=== PATIENT | male | born 1950 | race Caucasian/White ===

== ENCOUNTER → 2017-10-11 15:27 | Outpatient (CLI) | payer MEDICARE, SELFPAY ==
[2017-10-11 16:12] LABS: Absolute Lymphocyte Count 1.81 X10^3/ul (0.83-4.51); Absolute Neutrophil Count 3.5 X10^3/uL (2.0-7.7); Basophil# 0.06 X10^3/uL; Basophil% 0.9 % (0-1); Differential Indicated SCAN CRITERIA MET; Eosinophil# 0.48 X10^3/uL; Eosinophils% 7.3 % (0-5); Hematocrit 44.2 % (40-54); Hemoglobin 15.6 g/dl (13.0-16.5); Lymphocyte # 1.81 X10^3/ul (4.0); Lymphocyte % 27.6 % (19-41); Mean Corp Hgb Conc 35.3 g/gl (32-36); Mean Corpuscular Hgb 30.8 pg (27.0-32.0); Mean Corpuscular Volume 87.2 fL (80-94); Mean Platelet Vol. 9.3 fl (6.2-12.0); Monocyte# 0.66 X10^3/uL; Monocyte% 10.1 % (0-10); Neutrophil # 3.49 X10^3/uL (2.7-7.7); Neutrophil % 53.3 % (47-70); POSITIVE COUNT NO; POSITIVE DIFFERENTIAL NO; POSITIVE MORPHOLOGY YES; Platelet Count 224 K/mm3 (150-450); RBC Distribution Width CV 12.8 % (11.6-14.6); Red Blood Count 5.07 M/mm3 (4.6-6.2); White Blood Count 6.6 K/mm3 (4.4-11.0)
[2017-10-11 16:15] LABS: AST(SGOT) 49 U/L (15-37); Alanine Aminotransfer ALT/SGPT 68 U/L (16-61); Albumin, Serum 3.9 g/dL (3.2-5.0); Alkaline Phosphatase 75 U/L (45-117); Anion Gap 7 (5-15); BUN 19 mg/dL (7-18); BUN/Creat Ratio 18.4 RATIO (10-20); Calcium,Total 9.3 mg/dL (8.5-10.1); Chloride 101 mmol/L (98-107); Creatinine, Serum 1.03 mg/dL (0.70-1.30); EST Glomerular Filtration Rate 77 mL/min (>60); Est Glom Filt Rate - Afr Amer 93 mL/min (>60); Globulin 3.9 g/dL (2.2-4.2); Glucose 111 mg/dL (74-106); Potassium 3.9 mmol/L (3.5-5.1); Protein, Total 7.8 g/dL (6.4-8.2); Sodium Level 137 mmol/L (136-145)
[2017-10-11 16:28] LABS: Differential Comment SCANNED
--- NOTE | 2017-10-11 17:35 | CT_ITS ---
STUDY: CT ABDOMEN AND PELVIS WITH CONTRAST REASON FOR EXAM: Male, 67 years old. Pain. Evaluate for diverticulitis. RADIATION DOSAGE (If Supplied By Facility): CTDIvol = ( 17.92 ) mGy, DLP = ( 1313.78 ) mGycm TECHNIQUE: Transaxial images were obtained from the dome of the diaphragm to the symphysis pubis with oral contrast. 100CC ml of Isovue 300 contrast was administered. Sagittal and coronal images were reconstructed. Individualized dose optimization techniques were used for this CT. COMPARISON: 09/14/2016 FINDINGS: The visualized lung bases are clear. The visualized portions of the heart and pericardium are within normal limits. There are no calcified gallstones present. The liver is low in density, consistent with fatty infiltration. The spleen is normal in size. The pancreas is within normal limits. The adrenal glands are within normal limits. There are no obstructing renal stones. There is no hydronephrosis. There are no focal renal lesions. Normal visualized stomach. There is no bowel obstruction or inflammation. There are colonic diverticula without evidence of diverticulitis. The appendix is visualized and appears normal. The aorta is normal in caliber. There is no abdominal or pelvic free air, free fluid, fluid collection or lymphadenopathy. There are no destructive osseous lesions. CT/Abdomen/Pelvis WITH Contrast IMPRESSION: No acute abdominal or pelvic pathology. Fatty liver. Electronically Signed: Harrison Beal, at 18:25 EDT Tel , Service support ,
== END ==
PROVIDERS: Family Provider Family Medicine; PCP Family Medicine; Visit Provider Family Medicine
DX: K57.92 Diverticulitis of intestine, part unspecified, without perforation or abscess without bleeding (principal)
CPT/HCPCS: 36415; 74177; 80053; 85025; Q9967

== ENCOUNTER 2017-10-11 18:35 | Emergency (ER) | payer MEDICARE, SELFPAY ==
[2017-10-11 18:36] VITALS: BP 152/96; PULSE 101; RESP 16; TEMP 37.3; O2SAT 94; BMI 31.6
[2017-10-11] MEDS: DiphenhydrAMINE 50 MG/ML Syringe 25 MG IV (18:54)
[2017-10-11] MEDS: MethylPREDNISolone 125 MG/2 ML Vial IV (18:55)
[2017-10-11] MEDS: Ondansetron 4 MG/2 ML Vial IV (19:33)
--- NOTE | 2017-10-11 20:12 | ED.VISSUMM ---
- ER Visit Summary Date of Service: 10/11/17 Chief Complaint: IV dye reaction History of Present Illness: The patient is a 67 M who had an outpatient CT of the abdomen and pelvis with oral and IV contrast today. He has been having some lower abdominal pain and diarrhea. Roughly 15 minutes after administration of the IV dye he developed hives cough and felt like his lips were swelling and that his throat was tight. He has had IV dye previously but never had a reaction like this. No fevers. No vomiting. Physical Examination: Afebrile vitals are stable Patient in no distress Moist mucous membranes Airway patent I do not appreciate any angioedema no lip or tongue swelling Patient does have a few small areas of urticaria Heart regular rate and rhythm Lungs are clear no wheezing no stridor Test Results: Patient was treated with IV Solu-Medrol Pepcid and Benadryl while here. Emergency Department Course and Treatment: He has been observed for about 90 minutes. On reevaluation his rash is nearly resolved and he is otherwise asymptomatic. I do believe he can safely be discharged. He understands return for new worsening or recurrent symptoms. All questions answered at bedside. Patient discharged. Treatment Plan: [] Disposition: Discharge Impression: IV dye allergic reaction This note was generated with [employer] dictation software. It may contain incorrect words, spelling, and punctuation that were not noted in review of the chart prior to signing ED Disposition - Plan for ED Patient: Chief Complaint: Allergic Reaction Referrals: Bryon Garg MD [Primary Care Provider] -
--- NOTE | 2017-10-11 20:14 | ED.DEP ---
ED Disposition - Plan for ED Patient: Chief Complaint: Allergic Reaction Instructions: ED Allergic Reaction General Other Referrals: Bryon Garg MD [Primary Care Provider] -
[2017-10-11 20:26] VITALS: BP 127/91; PULSE 87; RESP 16; O2SAT 96
== END 2017-10-11 20:29 | disposition home or self-care (01) ==
LOC: ED 19:48
PROVIDERS: Emergency Provider Emergency Medicine; Family Provider Family Medicine; PCP Family Medicine
DX: T78.40XA Allergy, unspecified, initial encounter (principal); T50.8X5A Adverse effect of diagnostic agents, initial encounter; Y92.9 Unspecified place or not applicable; R10.30 Lower abdominal pain, unspecified; R19.7 Diarrhea, unspecified; R06.00 Dyspnea, unspecified; I10 Essential (primary) hypertension; E78.00 Pure hypercholesterolemia, unspecified; M79.7 Fibromyalgia; M10.9 Gout, unspecified
CPT/HCPCS: 36415; 74177; 80053; 85025; 96365; 96375; 99284; Q9967; A4216; J2405; J3490

== ENCOUNTER → 2017-11-01 13:03 | Outpatient (CLI) | payer MEDICARE, SELFPAY ==
[2017-11-01 14:13] LABS: Absolute Lymphocyte Count 1.43 X10^3/ul (0.83-4.51); Absolute Neutrophil Count 3.1 X10^3/uL (2.0-7.7); Basophil# 0.03 X10^3/uL; Basophil% 0.6 % (0-1); Eosinophil# 0.35 X10^3/uL; Eosinophils% 6.5 % (0-5); Hematocrit 43.2 % (40-54); Hemoglobin 15.2 g/dl (13.0-16.5); Lymphocyte # 1.43 X10^3/ul (4.0); Lymphocyte % 26.7 % (19-41); Mean Corp Hgb Conc 35.2 g/gl (32-36); Mean Corpuscular Volume 88.2 fL (80-94); Mean Platelet Vol. 9.3 fl (6.2-12.0); Monocyte# 0.47 X10^3/uL; Monocyte% 8.8 % (0-10); Neutrophil # 3.05 X10^3/uL (2.7-7.7); Platelet Count 226 K/mm3 (150-450); RBC Distribution Width CV 12.9 % (11.6-14.6); RBC Distribution Width SD 41.1 fl (35.1-43.9); White Blood Count 5.4 K/mm3 (4.4-11.0)
[2017-11-01 14:14] LABS: POSITIVE COUNT NO; POSITIVE DIFFERENTIAL NO; POSITIVE MORPHOLOGY NO
[2017-11-01 14:32] LABS: ALB/GLOB Ratio 1.1 RATIO (0.9-2.4); AST(SGOT) 94 U/L (15-37); Alanine Aminotransfer ALT/SGPT 112 U/L (16-61); Albumin, Serum 4.1 g/dL (3.2-5.0); Alkaline Phosphatase 71 U/L (45-117); Anion Gap 9 (5-15); BUN 17 mg/dL (7-18); CRP 4.69 mg/L (0.0-3.0); Chloride 101 mmol/L (98-107); Creatinine, Serum 1.13 mg/dL (0.70-1.30); EST Glomerular Filtration Rate 69 mL/min (>60); Est Glom Filt Rate - Afr Amer 83 mL/min (>60); Globulin 3.6 g/dL (2.2-4.2); Glucose 116 mg/dL (74-106); Potassium 4.1 mmol/L (3.5-5.1); Protein, Total 7.7 g/dL (6.4-8.2); Sodium Level 139 mmol/L (136-145)
== END ==
PROVIDERS: Family Provider Family Medicine; PCP Family Medicine; Visit Provider Family Medicine
DX: R07.89 Other chest pain (principal); R10.814 Left lower quadrant abdominal tenderness
CPT/HCPCS: 36415; 80053; 84484; 85025; 86140

== ENCOUNTER → 2017-11-07 11:00 | Outpatient (CLI) | payer MEDICARE, SELFPAY ==
--- NOTE | 2017-11-07 11:08 | RAD_ITS ---
STUDY: X-RAY - ABDOMEN/PELVIS REASON FOR EXAM: Male, 67 years old. Left lower quadrant abdominal tenderness TECHNIQUE: AP supine and upright views of the abdomen and pelvis. COMPARISON: CT abdomen pelvis 10/11/2017 FINDINGS: Normal visualized lung bases. Ovoid density superior to the right kidney possible medication within the gastric antrum. No abnormal calcification detected on CT. There is an unremarkable bowel gas pattern. There is no demonstrated free abdominal air. Hepatomegaly. Elevation right hemidiaphragm is stable. Stable right pelvic phlebolith. Normal visualized osseous structures. RAD/Abd Inc Decub and/or Erect IMPRESSION: There is no obstruction or perforation. Ovoid density right upper may represent dense medication. No abnormal calcification detected on CT. Stable hepatomegaly and elevation of the right hemidiaphragm. Electronically Signed: Jeannie Girard MD at 7:32 EDT , Service support ,
[2017-11-07 12:12] LABS: Absolute Lymphocyte Count 1.52 X10^3/ul (0.83-4.51); Absolute Neutrophil Count 3.5 X10^3/uL (2.0-7.7); Basophil# 0.01 X10^3/uL; Basophil% 0.2 % (0-1); Eosinophil# 0.34 X10^3/uL; Eosinophils% 5.8 % (0-5); Hematocrit 42.7 % (40-54); Hemoglobin 15.1 g/dl (13.0-16.5); Lymphocyte # 1.52 X10^3/ul (4.0); Lymphocyte % 26.1 % (19-41); Mean Corp Hgb Conc 35.4 g/gl (32-36); Mean Corpuscular Hgb 30.8 pg (27.0-32.0); Mean Corpuscular Volume 87.1 fL (80-94); Mean Platelet Vol. 9.1 fl (6.2-12.0); Monocyte# 0.46 X10^3/uL; Monocyte% 7.9 % (0-10); Neutrophil # 3.48 X10^3/uL (2.7-7.7); Neutrophil % 59.8 % (47-70); Platelet Count 201 K/mm3 (150-450); RBC Distribution Width CV 12.8 % (11.6-14.6); White Blood Count 5.8 K/mm3 (4.4-11.0)
[2017-11-07 12:16] LABS: POSITIVE COUNT NO; POSITIVE DIFFERENTIAL NO; POSITIVE MORPHOLOGY NO
[2017-11-07 12:40] LABS: ALB/GLOB Ratio 1.1 RATIO (0.9-2.4); AST(SGOT) 53 U/L (15-37); Alanine Aminotransfer ALT/SGPT 77 U/L (16-61); Albumin, Serum 3.9 g/dL (3.2-5.0); Alkaline Phosphatase 77 U/L (45-117); Anion Gap 10 (5-15); BUN 19 mg/dL (7-18); BUN/Creat Ratio 17.4 RATIO (10-20); CRP 4.87 mg/L (0.0-3.0); Chloride 101 mmol/L (98-107); Creatinine, Serum 1.09 mg/dL (0.70-1.30); EST Glomerular Filtration Rate 72 mL/min (>60); Est Glom Filt Rate - Afr Amer 87 mL/min (>60); Globulin 3.5 g/dL (2.2-4.2); Glucose 154 mg/dL (74-106); Lipase 155 U/L (73-393); Potassium 3.8 mmol/L (3.5-5.1); Protein, Total 7.4 g/dL (6.4-8.2); Sodium Level 138 mmol/L (136-145)
[2017-11-08 08:45] LABS: Hep C Antibodies <0.1 s/co ratio (0.0-0.9)
== END ==
PROVIDERS: Family Provider Family Medicine; PCP Family Medicine; Visit Provider Family Medicine
DX: R10.814 Left lower quadrant abdominal tenderness (principal)
CPT/HCPCS: 36415; 74019; 80053; 83690; 85025; 86140; 86803

== ENCOUNTER → 2017-11-12 09:32 | Outpatient (CLI) | payer MEDICARE, SELFPAY ==
--- NOTE | 2017-11-12 09:38 | US_ITS ---
STUDY: RENAL ULTRASOUND - COMPLETE REASON FOR EXAM: Male, 67 years old. Abnormal x-ray. TECHNIQUE: Ultrasound evaluation of the kidneys was performed with real-time and static alba-scale imaging. COMPARISON: Radiographs 11/07/2017, CT scan 10/11/2017 which was negative and is more sensitive than radiographs or ultrasound.. FINDINGS: RIGHT KIDNEY: Normal location of the right kidney, which is normal in size. The right kidney measures 11.4 x 6.1 x 5.0 cm. There is a normal cortex of the right kidney. The renal cortex measures 1.8 cm. There is no right renal mass or cyst. There are no right renal calculi. There is no right hydronephrosis. DISTAL RIGHT URETER: There is non-visualization of the distal right ureter. There is no demonstrated right ureterovesical junction calculus. There is a visualized right ureteral jet. LEFT KIDNEY: Normal location of the left kidney, which is normal in size. The left kidney measures 11.8 x 5.5 x 6.6 cm. There is a normal cortex of the left kidney. The renal cortex measures 1.8 cm. There is no left renal mass or cyst. There are no left renal calculi. There is no left hydronephrosis. DISTAL LEFT URETER: There is non-visualization of the distal left ureter. There is no demonstrated left ureterovesical junction calculus. There is a visualized left ureteral jet. BLADDER: The distended urinary bladder has a volume of 283 ml. There is a normal wall thickness of the distended urinary bladder. There is no demonstrated mass within the urinary bladder. There are no demonstrated bladder calculi. US/Kidney and Bladder IMPRESSION: Normal ultrasound of the kidneys and urinary bladder. Electronically Signed: Chandu Roth MD at 16:18 EDT , Service support ,
== END ==
PROVIDERS: Family Provider Family Medicine; PCP Family Medicine; Visit Provider Family Medicine
DX: R93.8 Abnormal findings on diagnostic imaging of other specified body structures (principal)
CPT/HCPCS: 76770

== ENCOUNTER 2017-11-27 06:22 | Day surgery (SDC) | payer MEDICARE, SELFPAY ==
--- NOTE | 2017-11-27 | IMM_PTH ---
PATIENT: FELIPE EVERETT LOC: EN U#:[id number] AGE/SX: 67/M ROOM: RE11/27/[address]: Dr. Richi Marie MD : 1950 BED: DIS: 11/27/2017 SPEC #: [id number] RECD: 11/28/17 10:30 STATUS: ANUSHKA DEIRDRE #: [id number] WILLIAMS: 11/27/17 00:[address]: Richi Marie DEPT: IMMUNOHISTOCHEMISTRY RECD BY: Jackie Lebron ENTERED: 11/28/17 10:31 SP TYPE: IMMUNO OTHR DR: Dr. Bryon Garg MD Tissues: A - Stomach, NOS B - Stomach, NOS Procedures: H Pylori (initial) PHYSICIAN & [place] [id number] SPECIMEN INFORMATION: Tissue Source: A ? Antral biopsy, B ? Proximal stomach biopsy Clinical Info: LUQ pain Specimen Number: [id number] A & B CPT code: 84351 x2 METHODOLOGY: Deparaffinized sections of prefer/formalin-fixed tissue or PAP/DQ stained slides are incubated with monoclonal/polyclonal antibodies/oligonucleotide probes. Localization is made via biotin free immunoperoxidase method. Appropriate controls are performed and reacted as expected. Results on target cell population are indicated in the following table: RESULTS: ANTIBODY / CLONE RESULT Block A H Pylori (polyclonal) negative Block B H Pylori (polyclonal) negative These tests were developed and their performance characteristics determined by [facility]. They may not have been cleared or approved by the U.S. Food and Drug Administration. The FDA has determined that such clearance or approval is not necessary. INTERPRETATION: A. Antral biopsy: Negative for Helicobacter pylori organisms. B. Proximal stomach biopsy: Negative for Helicobacter pylori organisms. SJ:tremaine 11/28/17
--- NOTE | 2017-11-27 | EGD_PTH ---
PATIENT: FELIPE EVERETT LOC: EN U#:[id number] AGE/SX: 67/M ROOM: RE11/27/[address]: Dr. Richi Marie MD : 1950 BED: DIS: 11/27/2017 SPEC #: [id number] RECD: 11/27/17 11:54 STATUS: ANUSHKA DEIRDRE #: [id number] WILLIAMS: 11/27/17 00:[address]: Richi Marie DEPT: SURGICAL PATHOLOGY RECD BY: Sam Dacosta ENTERED: 11/27/17 12:58 SP TYPE: EGD BIOPSY OTHR DR: Dr. Bryon Garg MD Tissues: A - Gastric mucous membrane B - Gastric mucous membrane Procedures: Surgery Specimen Level IV HEADER OPERATION: EGD PRE-OP DIAGNOSIS: LUQ pain TISSUE SUBMITTED: A ? Antral biopsy for histo and H. pylori, B ? Proximal stomach biopsy MICROSCOPIC DIAGNOSIS A. Antral biopsy: Mild gastritis. B. Proximal stomach biopsy: Mild gastritis and focal mucosal hemorrhage. SJ:tremaine 11/28/17 COMMENT A & B. The results of immunohistochemistry for Helicobacter pylori will be reported separately ([id number]). MICROSCOPIC DESCRIPTION Slides are reviewed. A. The specimen shows fragments of gastric mucosa with chronic inflammatory cell infiltrates in the lamina propria consisting of lymphocytes and plasma cells, consistent with mild chronic gastritis. B. The specimen shows fragments of gastric mucosa with chronic inflammatory cell infiltrates in the lamina propria consisting of lymphocytes and plasma cells, consistent with mild chronic gastritis. Focal mucosal hemorrhage is also noted. GROSS DESCRIPTION A - Received in fixative is one container labeled with the patient's name and designated antral biopsy. The specimen consists of multiple irregular fragments of light hector soft tissue that in aggregate measure 0.4 x 0.2 x 0.1 cm. The specimen is totally submitted in one cassette. B - Received in fixative is one container labeled with the patient's name and designated proximal stomach biopsy. The specimen consists of multiple irregular fragments of light hector soft tissue that in aggregate measure 0.5 x 0.3 x 0.1 cm. The specimen is totally submitted in one cassette. / JIMMY:tremaine 11/27/17 TC:3 CPT: 85189 x2
[2017-11-27 07:05] VITALS: BP 127/80; PULSE 69; RESP 18; TEMP 36.8; O2SAT 97; BMI 31.0
[2017-11-27 08:13] VITALS: BP 118/71; BP 127/80; PULSE 68; RESP 16; TEMP 37.4; O2SAT 94
[2017-11-27 08:20] VITALS: BP 117/68; BP 127/80; PULSE 62; RESP 16; O2SAT 95
--- NOTE | 2017-11-27 08:21 | OP.PCM_ITS ---
Problem List (1) LUQ abdominal pain Status: Acute Report of Operation Date of Procedure: 11/27/17 Pre-Operative Diagnosis: Left upper quadrant pain Post-Operative Diagnosis: Gastritis Surgery/Procedure Performed:: EGD with biopsy Specimen's removed: 1. Antral biopsy. 2. Proximal stomach biopsy Description of Procedure: The major risks and benefits associated with the procedure were explained to the patient in detail. The patient verbalized understanding and agreement with the same. The patient was then placed in the left lateral decubitus position. IV sedation was started by anesthesia. The endoscope was then advanced under direct visualization over the tongue, into the esophagus , stomach and duodenum. It was slowly withdrawn and the mucosa was carefully evaluated. Duodenal mucosal abnormalities were not visualized. Antegrade and retrograde views of the stomach were normal and did not reveal a hiatal hernia or ulceration. Gastric folds were normal. A biopsy of the antrum was performed with cold forceps. The patient had a small area of gastritis in the proximal stomach which was also biopsied with cold forceps. The scope was then withdrawn through the GE junction and careful examination did not demonstrate any mucosal abnormalities. No evidence of Olivas's esophagus was apparent. Careful examination of the remainder of the esophagus was normal. The scope was then withdrawn from the patient and the procedure terminated. It was well tolerated and there were no immediate complications. I recommended the patient continue to take his PPI first thing in the morning and see me in 1 month to see if that makes any difference. At this time he just had minor gastritis and I am checking for H. pylori. There were no ulcers or malignancies noted. GE junction was normal.
[2017-11-27 08:25] VITALS: BP 113/76; BP 127/80; PULSE 60; RESP 16; O2SAT 95
[2017-11-27 08:32] VITALS: BP 124/74; BP 127/80; PULSE 60; RESP 16; TEMP 36.6; O2SAT 94
[2017-11-27 09:13] VITALS: BP 127/80
== END 2017-11-27 09:14 | disposition home or self-care (01) ==
LOC: EN 06:23 → AC 06:51
PROVIDERS: Family Provider Family Medicine; PCP Family Medicine; Visit Provider Surgery
PROC: 0DJ08ZZ Inspection of Upper Intestinal Tract, Via Natural or Artificial Opening Endoscopic (ICD-10-PCS; CPT 43235; principal; 2017-11-27 07:55)
DX: K29.70 Gastritis, unspecified, without bleeding (principal); R10.12 Left upper quadrant pain; M79.7 Fibromyalgia; I10 Essential (primary) hypertension; E78.5 Hyperlipidemia, unspecified; N40.0 Benign prostatic hyperplasia without lower urinary tract symptoms; K21.9 Gastro-esophageal reflux disease without esophagitis; Z87.891 Personal history of nicotine dependence; Z79.82 Long term (current) use of aspirin; Z85.828 Personal history of other malignant neoplasm of skin
CPT/HCPCS: 43239; 88305; 88342; J7120

== ENCOUNTER → 2018-04-01 15:41 | Outpatient (CLI) | payer MEDICARE, SELFPAY ==
--- NOTE | 2018-04-01 15:47 | RAD_ITS ---
STUDY: X-RAY - LUMBAR SPINE REASON FOR EXAM: Male, 67 years old. Back pain TECHNIQUE: 3 view(s) of the lumbar spine were obtained. COMPARISON: None FINDINGS: Normal lumbar lordosis. There is no substantial scoliosis. There is a normal alignment of the vertebrae. Normal vertebral bodies and endplates. There is multi-level degenerative disc disease with multi-level disc space narrowing. There is no demonstrated fracture. The soft tissue structures are unremarkable. RAD/Lumbar Spine 2 or 3 Views IMPRESSION: Degenerative changes of the spine, as detailed above. There is NO acute fracture or malalignment. Electronically Signed: Raimundo Luke MD at 5:20 EDT , Service support ,
== END ==
PROVIDERS: Family Provider Family Medicine; PCP Family Medicine; Visit Provider Anesthesiology Pain Medicine
DX: M54.9 Dorsalgia, unspecified (principal)
CPT/HCPCS: 72100

== ENCOUNTER → 2018-04-15 12:32 | Outpatient (CLI) | payer MEDICARE, SELFPAY ==
[2018-04-15 14:03] LABS: Absolute Lymphocyte Count 1.41 X10^3/ul (0.83-4.51); Basophil# 0.03 X10^3/uL; Basophil% 0.5 % (0-1); Eosinophil# 0.29 X10^3/uL; Eosinophils% 4.6 % (0-5); Hematocrit 43.2 % (40-54); Hemoglobin 15.4 g/dl (13.0-16.5); Lymphocyte # 1.41 X10^3/ul (4.0); Lymphocyte % 22.6 % (19-41); Mean Corp Hgb Conc 35.6 g/gl (32-36); Mean Corpuscular Hgb 31.6 pg (27.0-32.0); Mean Corpuscular Volume 88.7 fL (80-94); Mean Platelet Vol. 9.3 fl (6.2-12.0); Monocyte# 0.54 X10^3/uL; Monocyte% 8.7 % (0-10); Neutrophil # 3.96 X10^3/uL (2.7-7.7); Neutrophil % 63.4 % (47-70); Platelet Count 187 K/mm3 (150-450); RBC Distribution Width CV 12.7 % (11.6-14.6); RBC Distribution Width SD 40.6 fl (35.1-43.9); Red Blood Count 4.87 M/mm3 (4.6-6.2); White Blood Count 6.2 K/mm3 (4.4-11.0)
[2018-04-15 14:04] LABS: POSITIVE COUNT NO; POSITIVE DIFFERENTIAL NO; POSITIVE MORPHOLOGY NO
[2018-04-15 14:18] LABS: AST(SGOT) 32 U/L (15-37); Alanine Aminotransfer ALT/SGPT 53 U/L (16-61); Albumin, Serum 3.9 g/dL (3.2-5.0); Alkaline Phosphatase 70 U/L (45-117); Anion Gap 8 (5-15); BUN 21 mg/dL (7-18); BUN/Creat Ratio 22.7 RATIO (10-20); Chloride 102 mmol/L (98-107); Creatinine, Serum 0.92 mg/dL (0.70-1.30); EST Glomerular Filtration Rate 87 mL/min (>60); Est Glom Filt Rate - Afr Amer 105 mL/min (>60); Glucose 139 mg/dL (74-106); Potassium 4.2 mmol/L (3.5-5.1); Protein, Total 7.9 g/dL (6.4-8.2); Sodium Level 138 mmol/L (136-145); Thyroid Stim Hormone (TSH) 0.57 uIU/mL (0.358-3.74)
== END ==
PROVIDERS: Family Provider Family Medicine; PCP Family Medicine; Visit Provider Family Medicine
DX: G25.0 Essential tremor (principal); J02.9 Acute pharyngitis, unspecified
CPT/HCPCS: 36415; 80053; 84443; 85025

== ENCOUNTER → 2018-05-14 15:15 | Outpatient (CLI) | payer MEDICARE, SELFPAY ==
--- NOTE | 2018-05-14 16:00 | MRI_ITS ---
STUDY: MRI LUMBAR SPINE WITHOUT CONTRAST REASON FOR EXAM: Male, 68 years old. Back and right leg pain. TECHNIQUE: Standardized fat and water weighted pulse sequences were obtained in the sagittal and axial planes. COMPARISON: None FINDINGS: T12-L1: Normal endplates. Normal disc height, hydration and morphology. Normal bilateral facet joints. Normal central canal and bilateral lateral recesses. Normal bilateral intervertebral neural foramina. Normal lumbar lordosis. There is no substantial scoliosis. Normal conus medullaris that terminates at the T12-L1. L1-2: Normal endplates. Disc dehydration. Mild, noncompressive spondylotic bar. Normal bilateral facet joints. Normal central canal and bilateral lateral recesses. Normal bilateral intervertebral neural foramina. L2-3: Normal endplates. Disc dehydration and mild disc space narrowing. There is 3 mm degenerative retrolisthesis. Normal bilateral facet joints. Normal central canal and bilateral lateral recesses. Normal bilateral intervertebral neural foramina. L3-4: Edematous endplate changes. Disc dehydration and moderate disc space narrowing. There is a small central and right paramedian disc protrusion causing mild effacement of the ventral thecal sac. There is no canal stenosis. Normal bilateral facet joints. Normal bilateral lateral recesses. There is moderate foraminal encroachment bilaterally, greater on the right, due to spurring and facet hypertrophy. L4-5: Normal endplates. Disc dehydration. Moderate facet hypertrophy. Normal central canal and bilateral lateral recesses. Moderate foraminal encroachment predominantly due to facet hypertrophy. The patient is status post left hemilaminectomy. L5-S1: Normal endplates. Disc dehydration and mild disc space narrowing. Normal bilateral facet joints. Normal central canal and bilateral lateral recesses. Mild to moderate foraminal encroachment, greater on the left, due to spurring and facet hypertrophy. Normal visualized sacral ala. Normal visualized paraspinous soft tissue structures. MRI/Spine Lumbar (Routine) IMPRESSION: 1. L3-4 right disc protrusion. 2. L2-3 retrolisthesis. 3. Foraminal encroachment at L3-4, L4-5, and L5-S1. 4. Additional degenerative changes are detailed above. Electronically Signed: Cat Cox MD at 23:25 EDT Tel , Service support ,
== END ==
PROVIDERS: Family Provider Family Medicine; PCP Family Medicine; Referring Provider Anesthesiology Pain Medicine; Visit Provider Anesthesiology Pain Medicine
DX: M54.9 Dorsalgia, unspecified (principal); M79.606 Pain in leg, unspecified
CPT/HCPCS: 72148

== ENCOUNTER → 2018-07-26 12:05 | Outpatient (CLI) | payer MEDICARE, SELFPAY ==
[2018-07-26 16:06] LABS: Hemoglobin A1c 7.9 % (4.2-6.3)
[2018-07-26 16:25] LABS: Rheumatoid Factor < 10.0 IU/mL (<15); Thyroid Stim Hormone (TSH) 0.64 uIU/mL (0.358-3.74)
[2018-07-26 16:43] LABS: Vitamin B12 1185 pg/mL (211-911); Vitamin D,25 Hydroxy 17.3 ng/mL (29.95-100.01)
[2018-07-29 16:06] LABS: SJOGREN'S Anti-SS-A test < 0.2 AI (0.0-0.9); SJOGREN'S Anti-SS-B test < 0.2 AI (0.0-0.9)
[2018-07-29 16:44] LABS: ANTINUCLEAR ANTIBODIES DIRECT Negative (Negative)
[2018-07-30 14:05] LABS: Albumin 3.9 g/dL (2.9-4.4); Albumin, Ur 50.8 % (.); Alpha-1-Globulin, Ur 2.3 % (.); Alpha-1-Globulins 0.3 g/dL (0.0-0.4); Alpha-2-Globulins 0.8 g/dL (0.4-1.0); Alpha-2-Globulins, Ur 14.6 % (.); Beta Globulin, Ur 20.2 % (.); Ceruloplasmin 29.5 mg/dL (16.0-31.0); Cytoplasmic Ab (C-ANCA) <1:20 titer (Neg:<1:20); Gamma Globulin, Ur 12.1 % (.); Immunoglobulin A 426 mg/dL (61-437); Immunoglobulin G 876 mg/dL (700-1600); Immunoglobulin M 41 mg/dL (20-172); M-Spike, Ur % Not Observed % (Not Observed); PROEL- TOTAL PROTEIN 7.4 g/dL (6.0-8.5); Total Protein, Ur 74.1 mg/dL (Not Estab.)
[2018-07-30 14:44] LABS: Copper, Serum or Plasma 116 ug/dL (72-166); Perinuclear Ab (P-ANCA) <1:20 titer (Neg:<1:20)
== END ==
PROVIDERS: Family Provider Family Medicine; PCP Family Medicine; Referring Provider Psychiatry & Neurology Neurology; Visit Provider Psychiatry & Neurology Neurology
DX: E11.9 Type 2 diabetes mellitus without complications (principal); G62.9 Polyneuropathy, unspecified; R25.1 Tremor, unspecified
CPT/HCPCS: 36415; 82306; 82390; 82525; 82607; 82784; 83036; 84165; 84166; 84443; 86038; 86235; 86256; 86334; 86335; 86431

== ENCOUNTER → 2018-08-07 09:16 | Outpatient (CLI) | payer MEDICARE, SELFPAY ==
--- NOTE | 2018-08-07 09:20 | CDU_ITS ---
Reason For Study: dizziness, stenosis Rt. Velocities/BP Lt. Velocities/BP Prox CCA 140/23 cm/sec. Prox CCA 142/25 cm/sec. Mid CCA 136/29 cm/sec. Mid CCA 130/31 cm/sec. Dist CCA 75/14 cm/sec. Dist CCA 114/28 cm/sec. Prox ICA 57/23 cm/sec. Prox ICA 93/18 cm/sec. Mid ICA 93/32 cm/sec. Mid ICA 66/26 cm/sec. Dist ICA 81/33 cm/sec. Dist ICA 41/15 cm/sec. Rt. ICA/CCA = .7. Lt. ICA/CCA = .7. Prox ECA 91/14 cm/sec. Prox ECA 80/17 cm/sec. Rt. Vert. 23/7 cm/sec. Lt. Vert. 52/18 cm/sec. Right Extracranial There is intimal thickening but no significant atherosclerotic plaque noted in the right common carotid artery. There is heterogeneous, smooth atherosclerotic plaque noted in the right internal carotid artery. There is no significant atherosclerotic plaque noted in the right external carotid artery. Antegrade flow is noted in the right vertebral artery. Left Extracranial There is intimal thickening but no significant atherosclerotic plaque noted in the left common carotid artery. There is heterogeneous, smooth atherosclerotic plaque noted in the left internal carotid artery. There is no significant atherosclerotic plaque noted in the left external carotid artery. Antegrade flow is noted in the left vertebral artery. Interpretation Summary There is < 50% stenosis in the bilateral extracranial internal carotid arteries (ICA) based on the velocity criteria. There is atherosclerotic plaque noted in bilateral ICAs. There is antegrade flow in bilateral vertebral arteries. Ordering Physician: Estephania Webb Referring Physician: ROYCE BAR Performed By: Colette Diggs, RDCS, RVT
--- NOTE | 2018-08-07 10:08 | MRI_ITS ---
STUDY: MRI BRAIN WITHOUT CONTRAST REASON FOR EXAM: Male, 68 years old. balance problems TECHNIQUE: Standardized multiplanar fat and water weighted pulse sequences were obtained. COMPARISON: CT of the brain on July 22, 2014 FINDINGS: Normal size of the ventricles and extra-axial spaces for the patient's age. Minor periventricular white matter ischemic changes without evidence for acute infarct. Chronic ischemic changes within the polly. Normal bilateral basal ganglia. Normal thalami. There is no extra-axial fluid accumulation. Normal flow voids within the major intracranial circulation suggesting patency by spin echo criteria except for severely atretic right vertebral artery possibly developmental variant. Normal sella turcica, pituitary gland, infundibular stalk, optic chiasm and hypothalamus. Normal tectal plate and pineal gland. Normal midbrain, and medulla. Normal cerebellum. Normal basal cisterns. Normal bilateral temporal bones. Normal bilateral internal auditory canals. No demonstrated orbital abnormality, within the constraints of a routine brain study. Minor mucosal thickening within the right ethmoid air cells Normal calvarium and skull base. Normal visualized soft tissue structures. Normal visualized upper cervical spine. MRI/Brain without Contrast IMPRESSION: Minor periventricular white matter ischemic changes without evidence for acute infarct and chronic ischemic changes in the polly Electronically Signed: Yan Lambert MD at 17:26 EST , Service support ,
--- OUTSIDE RECORDS SUMMARY | 2018-10-12 00:48 | XMS RPT_ITS ---
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 greater than or equal to 126 mg/dL suggests DIABETES MELLITUS per A.D.A. criteria. Please note revised GLUCOSE reference range effective 2017. LAB L501.1000 7-18 mg/dL High BUN 21 LAB L501.1100 0.70-1.30 mg/dL Normal CREAT,SERUM 0.92 Result Comment: The validity of the calculated GFR AND GFRAA in patients over 70 years has not been determined. Clinical correlation is essential. LAB L501.1110 >60 mL/min Normal EST GFR 87 Result Comment: Non- GFR Calc LAB L501.1115 >60 mL/min Normal EST GFR - AA 105 Result Comment: GFR Calc LAB L501.1300 10-20 RATIO High BUN/CRE 22.7 LAB L501.1500 6.4-8.2 g/dL T Normal PROT 7.9 LAB L501.1800 3.2-5.0 g/dL Normal ALB 3.9 LAB L501.1950 2.2-4.2 g/dL Normal GLOB 4.0 LAB L501.2000 0.9-2.4 RATIO Normal A/G 1.0 LAB L501.2200 8.5-10.1 mg/dL CA Normal 9.0 LAB L501.4100 15-37 U/L Normal AST 32 LAB L501.4305 45-117 U/L Normal ALK P 70 LAB L501.4405 16-61 U/L Normal ALT 53 LAB L501.4600 0.20-1.00 mg/dL T Normal BILI 0.50 LAB L501.5300 136-145 mmol/L NA Normal 138 LAB L501.5600 3.5-5.1 mmol/L K Normal 4.2 LAB L501.5900 98-107 mmol/L CL Normal 102 LAB L501.6100 21.0-32.0 mmol/L Normal CO2 28.0 LAB L501.6200 5-15 Normal GAP 8 Performed By: #### L500.4050, L501.9520 #### [facility] [address] [place], [address] THYROID STIM HORMONE Collected: 04/15/2018 Status: F Source: [facility] 12:36 PM [facility] REPOSITORY TYPE CODE TESTS RESULT OUT OF RANGE REFERENCE UNITS LAB L501.9520 0.358-3.74 uIU/mL Normal TSH 0.57 Performed By: #### L500.4050, L501.9520 #### [facility] [address] [place], [address] LUMBAR SPINE 2 OR 3 Observed: 04/01/2018 Status: F Source: [facility] VIEWS 3:44 PM [facility] REPOSITORY [facility] Imaging Services [address] [place] [address] Lumbar Spine 2 or 3 Views MR#: [id number] Acct: [id number] Name: FELIPE EVERETT Rep #: [id number] : 1950 M 67 From: Raimundo Luke PCP: Royce Garg MD Status: REG CLI Study: Lumbar Spine 2 or 3 Views Date of Exam: 04/01/18 Exam# [id number] Ordering Dr: Breann Ricketts MD STUDY: X-RAY - LUMBAR SPINE REASON FOR EXAM: Male, 67 years old. Back pain TECHNIQUE: 3 view(s) of the lumbar spine were obtained. COMPARISON: None FINDINGS: Normal lumbar lordosis. There is no substantial scoliosis. There is a normal alignment of the vertebrae. Normal vertebral bodies and endplates. There is multi-level degenerative disc disease with multi-level disc space narrowing. There is no demonstrated fracture. The soft tissue structures are unremarkable. RAD/Lumbar Spine 2 or 3 Views IMPRESSION: Degenerative changes of the spine, as detailed above. There is NO acute fracture or malalignment. Electronically Signed: Raimundo Luke MD at 5:20 EDT , Service support , CC: Breann Ricketts MD; Royce Garg MD Boat Worker: Signed OPERATIVE REPORT Observed: 11/27/2017 Status: F Source: [facility] 8:21 AM [facility] REPOSITORY [facility] Medical Records Department [address] [place] [address] Operative Report 11/27/17 0819 MR#: [id number] Acct: [id number] Name: FELIPE EVERETT Rep #: [id number] : 1950 67 From: Richi Marie MD PCP: Royce Garg MD Status: REG [facility] Location: [place] [address] Problem List (1) LUQ abdominal pain Status: Acute Report of Operation Date of Procedure: 11/27/17 Pre-Operative Diagnosis: Left upper quadrant pain Post-Operative Diagnosis: Gastritis Surgery/Procedure Performed:: EGD with biopsy Specimen's removed: 1. Antral biopsy. 2. Proximal stomach biopsy Description of Procedure: The major risks and benefits associated with the procedure were explained to the patient in detail. The patient verbalized understanding and agreement with the same. The patient was then placed in the left lateral decubitus position. IV sedation was started by anesthesia. The endoscope was then advanced under direct visualization over the tongue, into the esophagus, stomach and duodenum. It was slowly withdrawn and the mucosa was carefully evaluated. Duodenal mucosal abnormalities were not visualized. Antegrade and retrograde views of the stomach were normal and did not reveal a hiatal hernia or ulceration. Gastric folds were normal. A biopsy of the antrum was performed with cold forceps. The patient had a small area of gastritis in the proximal stomach which was also biopsied with cold forceps. The scope was then withdrawn through the GE junction and careful examination did not demonstrate any mucosal abnormalities. No evidence of Olivas's esophagus was apparent. Careful examination of the remainder of the esophagus was normal. The scope was then withdrawn from the patient and the procedure terminated. It was well tolerated and there were no immediate complications. I recommended the patient continue to take his PPI first thing in the morning and see me in 1 month to see if that makes any difference. At this time he just had minor gastritis and I am checking for H. pylori. There were no ulcers or malignancies noted. GE junction was normal. 11/27/17820 <Electronically signed by Richi Marie MD> Date iRchi Marie MD CC: Richi Mraie MD; Royce Garg MD Signed EGD ([facility]) Observed: 11/27/2017 Status: F Source: [facility] 12:00 AM [facility] REPOSITORY Patient: FELIPE EVERETT : 1950 (67/M) Acct Num: [id number] Phys: Cynthia GOLDMAN,Richi Unit Num: [id number] Loc: EN Specimen: [id number] Received: 11/27/17 - 1154 Spec Type: EGD BIOPSY TISSUES TISSUES: A. Gastric mucous membrane B. Gastric mucous membrane COMMENT A AND B. The results of immunohistochemistry for Helicobacter pylori will be reported separately ([id number]). GROSS DESCRIPTION A - Received in fixative is one container labeled with the patient's name and designated antral biopsy. The specimen consists of multiple irregular fragments of light hector soft tissue that in aggregate measure 0.4 x 0.2 x 0.1 cm. The specimen is totally submitted in one cassette. B - Received in fixative is one container labeled with the patient's name and designated proximal stomach biopsy. The specimen consists of multiple irregular fragments of light hector soft tissue that in aggregate measure 0.5 x 0.3 x 0.1 cm. The specimen is totally submitted in one cassette. / SJ:tremaine 11/27/17 TC:3 CPT: 82715 x2 HEADER OPERATION: EGD PRE-OP DIAGNOSIS: LUQ pain TISSUE SUBMITTED: A Antral biopsy for histo and H. pylori, B Proximal stomach biopsy MICROSCOPIC DESCRIPTION Slides are reviewed. A. The specimen shows fragments of gastric mucosa with chronic inflammatory cell infiltrates in the lamina propria consisting of lymphocytes and plasma cells, consistent with mild chronic gastritis. B. The specimen shows fragments of gastric mucosa with chronic inflammatory cell infiltrates in the lamina propria consisting of lymphocytes and plasma cells, consistent with mild chronic gastritis. Focal mucosal hemorrhage is also noted. MICROSCOPIC DIAGNOSIS A. Antral biopsy: Mild gastritis. B. Proximal stomach biopsy: Mild gastritis and focal mucosal hemorrhage. SJ:tremaine 11/28/17 Signed Pritesh Vail 11/28/17 <signature on file> Performed By: #### PEGD #### [facility] [address] [place] [address] [place], [address] IMMUNOHISTOCHEMISTRY Observed: 11/27/2017 Status: F Source: [facility] 12:00 AM [facility] REPOSITORY Patient: FELIPE EVERETT : 1950 (67/M) Acct Num: [id number] Phys: Cynthia GOLDMAN,Richi Unit Num: [id number] Loc: EN Specimen: [id number] Received: 11/28/17 - 1030 Spec Type: IMMUNO TISSUES TISSUES: A. Stomach, NOS - antrum B. Stomach, NOS - proximal antrum SPECIMEN INFORMATION: Tissue Source: A Antral biopsy, B Proximal stomach biopsy Clinical Info: LUQ pain Specimen Number: [id number] A AND B CPT code: 88221 x2 METHODOLOGY: Deparaffinized sections of prefer/formalin-fixed tissue or PAP/DQ stained slides are incubated with monoclonal/polyclonal antibodies/oligonucleotide probes. Localization is made via biotin free immunoperoxidase method. Appropriate controls are performed and reacted as expected. Results on target cell population are indicated in the following table: RESULTS: ANTIBODY / CLONE RESULT Block A H Pylori (polyclonal) negative Block B H Pylori (polyclonal) negative These tests were developed and their performance characteristics determined by [facility]. They may not have been cleared or approved by the U.S. Food and Drug Administration. The FDA has determined that such clearance or approval is not necessary. INTERPRETATION: A. Antral biopsy: Negative for Helicobacter pylori organisms. B. Proximal stomach biopsy: Negative for Helicobacter pylori organisms. SJ:tremaine 11/28/17 PHYSICIAN AND INSTITUTION [place] [address] Signed Pritesh Vail 11/28/17 <signature on file> Performed By: #### PIMM #### [facility] [address] [place] [address], [address] SURGERY VISIT REPORT Observed: 11/22/2017 Status: F Source: [place] 1:41 PM [facility] REPOSITORY [facility] [address] [place] [address] [address] [place] [address] OFFICE VISIT Date of Service: 11/21/17 MR#: [id number] Acct: [id number] Name: FELIPE EVERETT Rep #: [id number] : 1950 Provider: Richi Marie MD Age/Sex: 67/M Location: [facility] Status: Signed Intake Vital Signs11/21/17 Height 5 ft 10 in 11/21/17 Weight: 215 lb 11/21/17 Body Mass Index (BMI) 30.8 Intake Visit Reasons: abd pain, high liver enzymes, abd ct Applications Engineering Manager Required: No Is patient in pain?: Yes (left abd pain ) Pain scale (1-10): 2 Allergies Iodinated Contrast- Oral and IV Dye [DYEE] Allergy (Verified 11/21/17 10:02) Hives meloxicam [From Mobic] Allergy (Verified 11/21/17 10:02) Abd cramps/diarrhea naproxen [From Naprosyn] Allergy (Verified 11/21/17 10:02) Nausea/Vom/Diarrhea pregabalin [From Lyrica] Allergy (Verified 11/21/17 10:02) Other Sulfa (Sulfonamide Antibiotics) Allergy (Verified 11/21/17 10:02) Rash Medications Allopurinol [Zyloprim] 100 mg PO DAILY 06/17/13 [History Confirmed 11/21/17] Amitriptyline HCl [Elavil] 25 mg PO QHS 06/17/13 [History Confirmed 11/21/17] Coenzyme Q10/l-Carnitine [Q-Sorb Co Q-10 Plus 100 mg] 1 ea PO QHS 06/17/13 [History Confirmed 11/21/17] Melatonin 5 mg PO QHS 06/17/13 [History Confirmed 11/21/17] Omeprazole [Prilosec] 40 mg PO QHS 06/17/13 [History Confirmed 11/21/17] Chromium Picolinate 200 mcg PO DAILY 06/22/15 [History Confirmed 11/21/17] Metoprolol Tartrate [Lopressor (beta tanner)] 50 mg PO DAILY 06/22/15 [History Confirmed 11/21/17] Potassium Citrate [Urocit-K] 5 meq PO DAILY 06/22/15 [History Confirmed 11/21/17] Propranolol HCl [Inderal (Beta Tanner)] 40 mg PO DAILY PRN PRN 06/22/15 [History Confirmed 11/21/17] Visionex 1 tab PO BID 06/22/15 [History Confirmed 11/21/17] Aspirin 81 mg PO DAILY 02/03/16 [History Confirmed 11/21/17] Pravastatin Sodium [Pravachol] 40 mg PO QHS 02/03/16 [History Confirmed 11/21/17] Gabapentin [Neurontin] 300 mg PO QHS 07/16/17 [History Confirmed 11/21/17] Nabumetone [Relafen] 750 mg PO BID 07/16/17 [History Confirmed 11/21/17] Vitamin B Complex 1 ea PO DAILY 10/11/17 [History Confirmed 11/21/17] [facility] Medical History Fibromyalgia (Acute) Psoriasis (Chronic) Left sided chest pain (Acute) left arm tingling (Acute) BPH (benign prostatic hyperplasia) (Chronic) Dyslipidemia (Chronic) HTN (hypertension) (Chronic) Surgical History H/O colonoscopy (Acute) History of left knee replacement (Acute) History of left shoulder replacement (Acute) Family History Mother Breast cancer Brother Diabetes Hypertension CAD (coronary artery disease) Social History Smoking Status: Former smoker alcohol intake: never HPI HPI HPI: FELIPE EVERETT, is a 67 M who presents to the office today for left upper quadrant pain. The patient reports that he has been having left upper quadrant pain for 6 months. He says it is intermittent and gets worse with eating. He says that he had a colonoscopy in 2010 and was told to repeat in 10 years since of her no polyps. He does take omeprazole and aspirin daily. He reports that the pain does not radiate. ROS General General: No weight change or fatigue Musc Musculoskeletal: Yes back problems, arthritis and gout Cardio Cardiovascular: Yes high blood pressure; no murmur, pacemaker, heart disease, atrial fibrillation, heart attack, heart stent, palpitations, shortness of breat with exertion or chest pain Psych Psychiatric: No depression or anxiety Resp Respiratory: No shortness of breath, No sleep apnea, No cough, No COPD, No asthma, No emphysema, No wheezing Gastro Gastrointestinal: Yes abdominal pain, No nausea or vomiting, No diarrhea, Yes constipation, No blood in stool, Yes acid reflux, No hemorrhoids, No ulcers, No gallbladder problem, No black,tarry stools Exam Const General: cooperative Orientation: alert, oriented x3 Resp Effort AND Inspection: normal respiratory effort Auscultation: clear to auscultation bilaterally Cardio Rate: regular rate Rhythm: regular rhythm Heart Sounds: no murmurs GI Inspection: normal to inspection, non-distended Palpation: soft, nontender Assessment AND Plan Problems 1. LUQ pain R10.12 Plan 1. The patient is having left upper quadrant pain which is exacerbated by eating. This is concerning for peptic ulcer disease as the patient is on long- term aspirin. The patient reports he has tried other medications and nothing seems to be helping left upper quadrant pain and he would like an EGD to rule out any gastric disease. 2. I did offer the patient EGD. Recommend he stop his aspirin for 5 days prior to procedure. 3. I explained endoscopy in detail to the patient. I explained the risks including but not limited to stroke or heart attack with anesthesia, perforation of the GI tract, bleeding, infection. I explained that any of these could necessitate further emergency surgery. The patient understands and all questions were answered sufficiently. The patient wishes to proceed with procedure. Richi Marie MD Pager: [facility] [address] [place] [address], [address] [place] [address] Office: Orders Orders: Coding Level of Care Code Off vis,new,level 3 Diagnoses LUQ pain R10.12 11/22/17 1341 <Electronically signed by Richi Marie MD> Date Richi Marie MD Cosigner Signature: Date (if applicable) CC: Royce Garg MD KIDNEY AND BLADDER Observed: 11/12/2017 Status: F Source: [place] 9:38 AM [facility] REPOSITORY [facility] Imaging Services [address] [place] [address] Kidney and Bladder MR#: [id number] Acct: [id number] Name: FELIPE EVERETT Rep #: [id number] : 1950 M 67 From: Chandu Roth MD PCP: Royce Garg MD Status: REG CLI Study: Kidney and Bladder Date of Exam: 11/12/17 Exam# [id number] Ordering Dr: Royce Garg MD STUDY: RENAL ULTRASOUND - COMPLETE REASON FOR EXAM: Male, 67 years old. Abnormal x-ray. TECHNIQUE: Ultrasound evaluation of the kidneys was performed with real-time and static alba-scale imaging. COMPARISON: Radiographs 11/07/2017, CT scan 10/11/2017 which was negative and is more sensitive than radiographs or ultrasound.. FINDINGS: RIGHT KIDNEY: Normal location of the right kidney, which is normal in size. The right kidney measures 11.4 x 6.1 x 5.0 cm. There is a normal cortex of the right kidney. The renal cortex measures 1.8 cm. There is no right renal mass or cyst. There are no right renal calculi. There is no right hydronephrosis. DISTAL RIGHT URETER: There is non-visualization of the distal right ureter. There is no demonstrated right ureterovesical junction calculus. There is a visualized right ureteral jet. LEFT KIDNEY: Normal location of the left kidney, which is normal in size. The left kidney measures 11.8 x 5.5 x 6.6 cm. There is a normal cortex of the left kidney. The renal cortex measures 1.8 cm. There is no left renal mass or cyst. There are no left renal calculi. There is no left hydronephrosis. DISTAL LEFT URETER: There is non-visualization of the distal left ureter. There is no demonstrated left ureterovesical junction calculus. There is a visualized left ureteral jet. BLADDER: The distended urinary bladder has a volume of 283 ml. There is a normal wall thickness of the distended urinary bladder. There is no demonstrated mass within the urinary bladder. There are no demonstrated bladder calculi. US/Kidney and Bladder IMPRESSION: Normal ultrasound of the kidneys and urinary bladder. Electronically Signed: Chandu Roth MD at 16:18 EDT , Service support , CC: Royce Garg MD Boat Worker: Helio BENTLEY Observed: 11/07/2017 Status: F Source: [facility] AND/OR ERECT 11:08 AM [facility] REPOSITORY [facility] Imaging Services [address] [place] [address] Abd Inc Decub and/or Erect MR#: [id number] Acct: [id number] Name: FELIPE EVERETT Rep #: [id number] : 1950 M 67 From: Jeannie Girard MD PCP: Royce Garg MD Status: REG CLI Study: Abd Inc Decub and/or Erect Date of Exam: 11/07/17 Exam# [id number] Ordering Dr: Royce Garg MD STUDY: X-RAY - ABDOMEN/PELVIS REASON FOR EXAM: Male, 67 years old. Left lower quadrant abdominal tenderness TECHNIQUE: AP supine and upright views of the abdomen and pelvis. COMPARISON: CT abdomen pelvis 10/11/2017 FINDINGS: Normal visualized lung bases. Ovoid density superior to the right kidney possible medication within the gastric antrum. No abnormal calcification detected on CT. There is an unremarkable bowel gas pattern. There is no demonstrated free abdominal air. Hepatomegaly. Elevation right hemidiaphragm is stable. Stable right pelvic phlebolith. Normal visualized osseous structures. RAD/Abd Inc Decub and/or Erect IMPRESSION: There is no obstruction or perforation. Ovoid density right upper may represent dense medication. No abnormal calcification detected on CT. Stable hepatomegaly and elevation of the right hemidiaphragm. Electronically Signed: Jeannie Girard MD at 7:32 EDT , Service support , CC: Royce Garg MD Boat Worker: Signed CBC W/DIFF, AUTOMATED Collected: 11/07/2017 Status: F Source: [facility] 11:05 AM [facility] REPOSITORY Order Comment: Order Date: 11/07/17 Order Info: 0184-1 - CBCD TYPE CODE TESTS RESULT OUT OF RANGE REFERENCE UNITS LAB L100.1000 4.4-11.0 K/mm3 Normal WBC 5.8 LAB L100.1200 4.6-6.2 M/mm3 Normal RBC 4.90 LAB L100.1300 13.0-16.5 g/dl Normal HGB 15.1 LAB L100.1400 40-54 % Normal HCT 42.7 LAB L100.1500 80-94 fL Normal MCV 87.1 LAB L100.1600 27.0-32.0 pg Normal MCH 30.8 LAB L100.1700 32-36 g/gl Normal MCHC 35.4 LAB L100.1810 11.6-14.6 % Normal RDW CV 12.8 LAB L100.1820 35.1-43.9 fl Normal RDW SD 41.0 LAB L100.1900 150-450 K/mm3 Normal PLT 201 LAB L100.2000 6.2-12.0 fl Normal MPV 9.1 LAB L100.2100 47-70 % Normal NEUT% 59.8 LAB L100.2200 19-41 % Normal LY% 26.1 LAB L100.2300 0-10 % Normal MONO% 7.9 LAB L100.2400 0-5 % High EO% 5.8 LAB L100.2500 0-1 % Normal BASO% 0.2 LAB L100.2550 0.0-0.9 % Normal IM GRAN % 0.200 Result Comment: IG% - Immature Granulocytes (promyelocytes, myelocytes and metamyelocytes) > 1% indicates that a LEFT SHIFT is Present. LAB L100.2620 2.0-7.7 X10 3/uL Normal Absolute Neut 3.5 LAB L100.2720 0.83-4.51 X10 3/ul Normal Absolute Lymph 1.52 Performed By: #### L100.0100, L500.4050, L501.2450 #### [facility] [address] [place], [address] #### L3100.0625 #### [facility] (refer to report for specific site) refer to report for address and phone number COMPREHENSIVE METABOLIC Collected: 11/07/2017 Status: F Source: [facility] 11:05 AM [facility] REPOSITORY Order Comment: Order Date: 11/07/17 Order Info: 0786-1 - CMP Order Info: 3040-3 - LIPASE TYPE CODE TESTS RESULT OUT OF RANGE REFERENCE UNITS LAB L501.0100 74-106 mg/dL High GLU 154 Result Comment: Fasting Glucose result greater than or equal to 126 mg/dL suggests DIABETES MELLITUS per A.D.A. criteria. Please note revised GLUCOSE reference range effective 2017. LAB L501.1000 7-18 mg/dL High BUN 19 LAB L501.1100 0.70-1.30 mg/dL Normal CREAT,SERUM 1.09 Result Comment: The validity of the calculated GFR AND GFRAA in patients over 70 years has not been determined. Clinical correlation is essential. LAB L501.1110 >60 mL/min Normal EST GFR 72 Result Comment: Non- GFR Calc LAB L501.1115 >60 mL/min Normal EST GFR - AA 87 Result Comment: GFR Calc LAB L501.1300 10-20 RATIO Normal BUN/CRE 17.4 LAB L501.1500 6.4-8.2 g/dL T Normal PROT 7.4 LAB L501.1800 3.2-5.0 g/dL Normal ALB 3.9 LAB L501.1950 2.2-4.2 g/dL Normal GLOB 3.5 LAB L501.2000 0.9-2.4 RATIO Normal A/G 1.1 LAB L501.2200 8.5-10.1 mg/dL CA Normal 9.0 LAB L501.4100 15-37 U/L High AST 53 LAB L501.4305 45-117 U/L Normal ALK P 77 LAB L501.4405 16-61 U/L High ALT 77 LAB L501.4600 0.20-1.00 mg/dL T Normal BILI 0.50 LAB L501.5300 136-145 mmol/L NA Normal 138 LAB L501.5600 3.5-5.1 mmol/L K Normal 3.8 LAB L501.5900 98-107 mmol/L CL Normal 101 LAB L501.6100 21.0-32.0 mmol/L Normal CO2 27.0 LAB L501.6200 5-15 Normal GAP 10 Performed By: #### L100.0100, L500.4050, L501.2450 #### [facility] [place], [address] #### L3100.0625 #### [facility] (refer to report for specific site) refer to report for address and phone number LIPASE Collected: 11/07/2017 Status: F Source: [place] 11:05 AM [facility] REPOSITORY Order Comment: Order Date: 11/07/17 Order Info: 0786-1 - CMP Order Info: 3040-3 - LIPASE TYPE CODE TESTS RESULT OUT OF RANGE REFERENCE UNITS LAB L501.2450 73-393 U/L Normal LIPASE 155 Performed By: #### L100.0100, L500.4050, L501.2450 #### [facility] [address] [place], [address] #### L3100.0625 #### [facility] (refer to report for specific site) refer to report for address and phone number HEPATITIS C ANTIBODIES Collected: 11/07/2017 Status: F Source: [place] 11:05 [facility] REPOSITORY Order Comment: Order Date: 11/07/17 Order Info: 0363-1 - HECAB TYPE CODE TESTS RESULT OUT OF RANGE REFERENCE UNITS LAB L3100.0650 0.0-0.9 s/co ratio Normal HEP C AB <0.1 Result Comment: Negative: < 0.8 Indeterminate: 0.8 - 0.9 Positive: > 0.9 The CDC recommends that a positive HCV antibody result be followed up with a HCV Nucleic Acid Amplification test (865254). [facility] [id number] Well Head Pumper: Daniele Berg PhD, Phone: [phone] Performed By: #### L100.0100, L500.4050, L501.2450 #### [facility] [address] [facility] [place], [address] #### L3100.0625 #### [facility] (refer to report for specific site) refer to report for address and phone number CRP Collected: 11/07/2017 Status: F Source: [place] 11:05 [facility] REPOSITORY Order Comment: Order Date: 11/07/17 Order Info: 0786-1 - CMP Order Info: 3040-3 - LIPASE TYPE CODE TESTS RESULT OUT OF RANGE REFERENCE UNITS LAB L501.6710 0.0-3.0 mg/L High 4.87 C-REACTIVE PROT Result Comment: C-Reactive Protein (CRP) provides useful information for the diagnosis, therapy and monitoring of inflammatory processes and associated diseases. For the evaluation of Relative Risk for Cardiovascular Disease, a High Sensitivity CRP (HSCRP) should be ordered. Performed By: #### L501.6710 #### [facility] [address] [place], [address] CBC W/DIFF, AUTOMATED Collected: 11/01/2017 Status: F Source: [place] 1:08 PM [facility] REPOSITORY TYPE CODE TESTS RESULT OUT OF RANGE REFERENCE UNITS LAB L100.1000 4.4-11.0 K/mm3 Normal WBC 5.4 LAB L100.1200 4.6-6.2 M/mm3 Normal RBC 4.90 LAB L100.1300 13.0-16.5 g/dl Normal HGB 15.2 LAB L100.1400 40-54 % Normal HCT 43.2 LAB L100.1500 80-94 fL Normal MCV 88.2 LAB L100.1600 27.0-32.0 pg Normal MCH 31.0 LAB L100.1700 32-36 g/gl Normal MCHC 35.2 LAB L100.1810 11.6-14.6 % Normal RDW CV 12.9 LAB L100.1820 35.1-43.9 fl Normal RDW SD 41.1 LAB L100.1900 150-450 K/mm3 Normal PLT 226 LAB L100.2000 6.2-12.0 fl Normal MPV 9.3 LAB L100.2100 47-70 % Normal NEUT% 57.0 LAB L100.2200 19-41 % Normal LY% 26.7 LAB L100.2300 0-10 % Normal MONO% 8.8 LAB L100.2400 0-5 % High EO% 6.5 LAB L100.2500 0-1 % Normal BASO% 0.6 LAB L100.2550 0.0-0.9 % Normal IM GRAN % 0.400 Result Comment: IG% - Immature Granulocytes (promyelocytes, myelocytes and metamyelocytes) > 1% indicates that a LEFT SHIFT is Present. LAB L100.2620 2.0-7.7 X10 3/uL Normal Absolute Neut 3.1 LAB L100.2720 0.83-4.51 X10 3/ul Normal Absolute Lymph 1.43 Performed By: #### L100.0100 #### [facility] [address] [place], [address] COMPREHENSIVE METABOLIC Collected: 11/01/2017 Status: F Source: [place] [facility] 1:08 PM [facility] REPOSITORY Order Comment: 'TROP' Serial specimen #1, #2, #3, or #4: 1 TYPE CODE TESTS RESULT OUT OF RANGE REFERENCE UNITS LAB L501.0100 74-106 mg/dL High GLU 116 Result Comment: Fasting Glucose result from 100 to 125 mg/dL suggests IMPAIRED HOMEOSTASIS per A.D.A. criteria. Please note revised GLUCOSE reference range effective 2017. LAB L501.1000 7-18 mg/dL Normal BUN 17 LAB L501.1100 0.70-1.30 mg/dL Normal CREAT,SERUM 1.13 Result Comment: The validity of the calculated GFR AND GFRAA in patients over 70 years has not been determined. Clinical correlation is essential. LAB L501.1110 >60 mL/min Normal EST GFR 69 Result Comment: Non- GFR Calc LAB L501.1115 >60 mL/min Normal EST GFR - AA 83 Result Comment: GFR Calc LAB L501.1300 10-20 RATIO Normal BUN/CRE 15.0 LAB L501.1500 6.4-8.2 g/dL T Normal PROT 7.7 LAB L501.1800 3.2-5.0 g/dL Normal ALB 4.1 LAB L501.1950 2.2-4.2 g/dL Normal GLOB 3.6 LAB L501.2000 0.9-2.4 RATIO Normal A/G 1.1 LAB L501.2200 8.5-10.1 mg/dL CA Normal 9.0 LAB L501.4100 15-37 U/L High AST 94 LAB L501.4305 45-117 U/L Normal ALK P 71 LAB L501.4405 16-61 U/L High ALT 112 Result Comment: Please note revised ALT reference range effective 2017. LAB L501.4600 0.20-1.00 mg/dL Normal T BILI 0.70 LAB L501.5300 136-145 mmol/L Normal NA 139 LAB L501.5600 3.5-5.1 mmol/L Normal K 4.1 LAB L501.5900 98-107 mmol/L Normal CL 101 LAB L501.6100 21.0-32.0 mmol/L Normal CO2 29.0 LAB L501.6200 5-15 Normal GAP 9 Performed By: #### L500.4050, L501.4010, L501.6710 #### [facility] [address] [place], [address] TROPONIN-I Collected: 11/01/2017 Status: F Source: [place] 1:08 PM [facility] REPOSITORY Order Comment: 'TROP' Serial specimen #1, #2, #3, or #4: 1 TYPE CODE TESTS RESULT OUT OF RANGE REFERENCE UNITS LAB L501.4010 <0.06 ng/mL Normal < 0.02 TROPONIN-I Result Comment: TROPONIN-I EXPECTED VALUES <0.05 NEGATIVE 0.06 - 0.59 AT RISK OF HI > OR = 0.60 SUGGEST HI Performed By: #### L500.4050, L501.4010, L501.6710 #### [facility] [address] [place], [place], [address] CRP Collected: 11/01/2017 Status: F Source: [place] 1:08 PM [facility] REPOSITORY Order Comment: 'TROP' Serial specimen #1, #2, #3, or #4: 1 TYPE CODE TESTS RESULT OUT OF RANGE REFERENCE UNITS LAB L501.6710 0.0-3.0 mg/L High 4.69 C-REACTIVE PROT Result Comment: C-Reactive Protein (CRP) provides useful information for the diagnosis, therapy and monitoring of inflammatory processes and associated diseases. For the evaluation of Relative Risk for Cardiovascular Disease, a High Sensitivity CRP (HSCRP) should be ordered. Performed By: #### L500.4050, L501.4010, L501.6710 #### [facility] [address] [place], [place], [address] EMERGENCY DEPARTMENT Observed: 10/11/2017 Status: F Source: [place] SUMMARY 8:14 PM [facility] REPOSITORY [facility] Medical Records Department [address] [place] [address] Emergency Department Summary 10/11/172011 MR#: [id number] Acct: [id number] Name: FELIPE EVERETT Rep #: [id number] : 1950 67 From: Stefan Cook MD PCP: Royce Garg MD Status: REG ER - ER Visit Summary Date of Service: 10/11/17 Chief Complaint: IV dye reaction History of Present Illness: The patient is a 67 M who had an outpatient CT of the abdomen and pelvis with oral and IV contrast today. He has been having some lower abdominal pain and diarrhea. Roughly 15 minutes after administration of the IV dye he developed hives cough and felt like his lips were swelling and that his throat was tight. He has had IV dye previously but never had a reaction like this. No fevers. No vomiting. Physical Examination: Afebrile vitals are stable Patient in no distress Moist mucous membranes Airway patent I do not appreciate any angioedema no lip or tongue swelling Patient does have a few small areas of urticaria Heart regular rate and rhythm Lungs are clear no wheezing no stridor Test Results: Patient was treated with IV Solu-Medrol Pepcid and Benadryl while here. Emergency Department Course and Treatment: He has been observed for about 90 minutes. On reevaluation his rash is nearly resolved and he is otherwise asymptomatic. I do believe he can safely be discharged. He understands return for new worsening or recurrent symptoms. All questions answered at bedside. Patient discharged. Treatment Plan: [] Disposition: Discharge Impression: IV dye allergic reaction This note was generated with [employer] dictation software. It may contain incorrect words, spelling, and punctuation that were not noted in review of the chart prior to signing ED Disposition - Plan for ED Patient: Chief Complaint: Allergic Reaction Referrals: Royce Garg MD [Primary Care Provider] - What to do if you have Problems For any increased pain, shortness of breath, bleeding, nausea or vomiting, chest pain, or any unexpected problems, contact your Primary Care Provider. Call [facility] ([phone]) or report to the closest Emergency Room. Call 911 if necessary. 10/11/172013 <Electronically signed by Stefan Cook MD> Date Stefan Cook MD Cosigner Signature (If Indicated): Date CC: Royce Garg MD DISCHARGE INSTRUCTION Observed: 10/11/2017 Status: F Source: [place] 8:14 PM [facility] REPOSITORY [facility] Medical Records Department [address] [place] [address] Discharge Instruction 10/11/172013 MR#: [id number] Acct: [id number] Name: FELIPE EVERETT Rep #: [id number] : 1950 67 From: Stefan Cook MD PCP: Royce Garg MD Status: REG ER ED Disposition - Plan for ED Patient: Chief Complaint: Allergic Reaction Instructions: ED Allergic Reaction General Other Referrals: Royce Garg MD [Primary Care Provider] - What to do if you have Problems For any increased pain, shortness of breath, bleeding, nausea or vomiting, chest pain, or any unexpected problems, contact your Primary Care Provider. Call [facility] ([phone]) or report to the closest Emergency Room. Call 911 if necessary. 10/11/172013 <Electronically signed by Stefan Cook MD> Date Stefan Cook MD Cosigner Signature (If Indicated): Date CC: Royce Garg MD ABDOMEN/PELVIS WITH Observed: 10/11/2017 Status: F Source: [place] 5:35 PM [facility] REPOSITORY [facility] Imaging Services [address] [place] [address] Abdomen/Pelvis WITH Contrast MR#: [id number] Acct: [id number] Name: FELIPE EVERETT Rep #: [id number] : 1950 [place] From: Harrison Beal MD PCP: Forest GOLDMAN,Royce Status: REG CLI Study: Abdomen/Pelvis WITH Contrast Date of Exam: 10/11/17 Exam# [id number] Ordering Dr: Eulogio Long MD STUDY: CT ABDOMEN AND PELVIS WITH CONTRAST REASON FOR EXAM: Male, 67 years old. Pain. Evaluate for diverticulitis. RADIATION DOSAGE (If Supplied By Facility): CTDIvol = ( 17.92 ) mGy, DLP = ( 1313.78 ) mGycm TECHNIQUE: Transaxial images were obtained from the dome of the diaphragm to the symphysis pubis with oral contrast. 100CC ml of Isovue 300 contrast was administered. Sagittal and coronal images were reconstructed. Individualized dose optimization techniques were used for this CT. COMPARISON: 09/14/2016 FINDINGS: The visualized lung bases are clear. The visualized portions of the heart and pericardium are within normal limits. There are no calcified gallstones present. The liver is low in density, consistent with fatty infiltration. The spleen is normal in size. The pancreas is within normal limits. The adrenal glands are within normal limits. There are no obstructing renal stones. There is no hydronephrosis. There are no focal renal lesions. Normal visualized stomach. There is no bowel obstruction or inflammation. There are colonic diverticula without evidence of diverticulitis. The appendix is visualized and appears normal. The aorta is normal in caliber. There is no abdominal or pelvic free air, free fluid, fluid collection or lymphadenopathy. There are no destructive osseous lesions. CT/Abdomen/Pelvis WITH Contrast IMPRESSION: No acute abdominal or pelvic pathology. Fatty liver. Electronically Signed: Harrison Beal, at 18:25 EDT Tel , Service support , CC: Royce Garg MD; Eulogio Long MD Boat Worker: Signed CBC W/DIFF, AUTOMATED Collected: 10/11/2017 Status: F Source: [place] 3:28 PM [facility] REPOSITORY Order Comment: Order Date: 10/11/17 Order Info: [id number] - CBCD Comments: STAT TYPE CODE TESTS RESULT OUT OF RANGE REFERENCE UNITS LAB L100.1000 4.4-11.0 K/mm3 Normal WBC 6.6 LAB L100.1200 4.6-6.2 M/mm3 Normal RBC 5.07 LAB L100.1300 13.0-16.5 g/dl Normal HGB 15.6 LAB L100.1400 40-54 % Normal HCT 44.2 LAB L100.1500 80-94 fL Normal MCV 87.2 LAB L100.1600 27.0-32.0 pg Normal MCH 30.8 LAB L100.1700 32-36 g/gl Normal MCHC 35.3 LAB L100.1810 11.6-14.6 % Normal RDW CV 12.8 LAB L100.1820 35.1-43.9 fl Normal RDW SD 40.0 LAB L100.1900 150-450 K/mm3 Normal PLT 224 LAB L100.2000 6.2-12.0 fl Normal MPV 9.3 LAB L100.2100 47-70 % Normal NEUT% 53.3 LAB L100.2200 19-41 % Normal LY% 27.6 LAB L100.2300 0-10 % High MONO% 10.1 LAB L100.2400 0-5 % High EO% 7.3 LAB L100.2500 0-1 % Normal BASO% 0.9 LAB L100.2550 0.0-0.9 % Normal IM GRAN % 0.800 Result Comment: IG% - Immature Granulocytes (promyelocytes, myelocytes and metamyelocytes) > 1% indicates that a LEFT SHIFT is Present. LAB L100.2620 2.0-7.7 X10 3/uL Normal Absolute Neut 3.5 LAB L100.2720 0.83-4.51 X10 3/ul Normal Absolute Lymph 1.81 LAB L100.4500 Normal SMEAR COMMENT SCANNED Result Comment: AUTO DIFF OK Performed By: #### L100.0100, L500.4050 #### [facility] [place], [place], [address] COMPREHENSIVE METABOLIC Collected: 10/11/2017 Status: F Source: [place] 3:28 PM [facility] REPOSITORY Order Comment: Order Date: 10/11/17 Order Info: [id number] - CMP Comments: STAT TYPE CODE TESTS RESULT OUT OF RANGE REFERENCE UNITS LAB L501.0100 74-106 mg/dL High GLU 111 Result Comment: Fasting Glucose result from 100 to 125 mg/dL suggests IMPAIRED HOMEOSTASIS per A.D.A. criteria. Please note revised GLUCOSE reference range effective 2017. LAB L501.1000 7-18 mg/dL High BUN 19 LAB L501.1100 0.70-1.30 mg/dL Normal CREAT,SERUM 1.03 Result Comment: The validity of the calculated GFR AND GFRAA in patients over 70 years has not been determined. Clinical correlation is essential. LAB L501.1110 >60 mL/min Normal EST GFR 77 Result Comment: Non- GFR Calc LAB L501.1115 >60 mL/min Normal EST GFR - AA 93 Result Comment: GFR Calc LAB L501.1300 10-20 RATIO Normal BUN/CRE 18.4 LAB L501.1500 6.4-8.2 g/dL T Normal PROT 7.8 LAB L501.1800 3.2-5.0 g/dL Normal ALB 3.9 LAB L501.1950 2.2-4.2 g/dL Normal GLOB 3.9 LAB L501.2000 0.9-2.4 RATIO Normal A/G 1.0 LAB L501.2200 8.5-10.1 mg/dL CA Normal 9.3 LAB L501.4100 15-37 U/L High AST 49 LAB L501.4305 45-117 U/L Normal ALK P 75 LAB L501.4405 16-61 U/L High ALT 68 Result Comment: Please note revised ALT reference range effective 2017. LAB L501.4600 0.20-1.00 mg/dL Normal T BILI 0.60 LAB L501.5300 136-145 mmol/L Normal NA 137 LAB L501.5600 3.5-5.1 mmol/L Normal K 3.9 LAB L501.5900 98-107 mmol/L Normal CL 101 LAB L501.6100 21.0-32.0 mmol/L Normal CO2 29.0 LAB L501.6200 5-15 Normal GAP 7 Performed By: #### L100.0100, L500.4050 #### [facility] [address] [place], [address] ALLERGIES ALLERGIES DATE TYPE / CODE NAME / CODE REACTION SEVERITY SOURCE 11/26/2017 Drug Iodinated Hives Unknown [facility]/416 Contrast- [facility] 253119(SNOM and IV Repository ED CT) Dye/O483101491(R XNORM) 11/26/2017 Drug Sulfa Rash Unknown [facility] Allergy/416 (Sulfonamide Hospital 315889(SNOM Antibiotics)/F[address]) 9051347(RXNORM) 11/26/2017 Drug naproxen/R578527 Nausea/Vom/Diar Unknown [facility] Allergy/416 380(RXNORM) [facility] 110286(SNOM Repository ED CT) 11/26/2017 Drug meloxicam/Q31448 Abd Unknown [facility] Allergy/416 6272(RXNORM) cramps/diarrhea Hospital 157741(SNOM Repository ED CT) 11/26/2017 Drug pregabalin/F0060 Other Unknown [facility] Allergy/416 93845(RXNORM) Hospital 820184(SNOM Repository ED CT) ENCOUNTERS ENCOUNTERS ADMIT/DISCHARGE ACCOUNT ADMITTING ENCOUNTER LOCATION SOURCE NUMBER CLASS 08/09/2018 [id number] Ambulatory [facility] [place] 3 [facility] ing:PT Repository 08/07/2018 [id number] Ambulatory [facility] ing:CVS Repository 07/26/2018 [id number] Ambulatory [facility] 4 [facility] ing:LAB Repository 05/14/2018 [id number] Ambulatory [facility] [place] 3 [facility] ing:MRI Repository 04/15/2018 [id number] Ambulatory [place] 3 [facility] ing:MTLAB Repository 04/01/2018 [id number] Ambulatory [facility] ing:RAD Repository 11/27/2017/ [id number] Ambulatory [place] [facility] 8 0 [facility] ing:EN Repository 11/27/2017 [id number] Ambulatory BMSBuilding:B [facility] 2 [facility] Repository 11/21/2017/ [id number] Ambulatory BMSBuilding:B [place] 8 3 MS.[facility] Repository 11/12/2017 [id number] Ambulatory [facility] 6 [facility] ing:US Repository 11/07/2017 [id number] Ambulatory [place] [facility] 7 [facility] ing:MTLAB Repository 11/01/2017 [id number] Ambulatory [place] [facility] 9 [facility] ing:MTLAB Repository 10/11/2017/ [id number] Emergency [place] [facility] 3 [facility] ing:ED Repository 10/11/2017 [id number] Ambulatory [facility] 3 [facility] ing:CT Repository PAYERS PAYERS ENCOUNTER GUARANTOR PAYER SUBSCRIBER SOURCE 08/09/2018 FELIPE L Primary FELIPE L [place] [id number] Insurance:[facility]ABINE [facility] Number: [id number] [facility] [address]Bje: [id number] Repository Date:4692-76-48QJ [address] () [address] [place] [address]YX: 08/09/2018 Secondary NOT GIVENUNK [facility] Insurance:SELF PAY [facility] Number: Effective Repository Date:2018-08-02 08/07/2018 FELIPE L Primary FELIPE L [facility] [id number] Insurance:AETNA [facility]: [facility] Number: [id number] Indian Health Care Center [address]Nlh: [id number] Repository Date:7278-98-81JR [address] () [address] [place] [address]XD: 08/07/2018 Secondary NOT GIVENUNK [facility] Insurance:SELF PAY [facility] Number: Effective Repository Date:2018-07-30 07/26/2018 FELIPE L Primary FELIPE L [place] [id number] Insurance:AETNA BOLDMANDOB: [facility] Kaden TRAYLOR Number: [id number] Indian Health Care Center [address]Dvr: [id number] Repository Date:8486-78-36FQ [address] () [address] LASHAWNSONG [address]HY: 07/26/2018 Secondary NOT GIVENUNK [facility] Insurance:SELF PAY [facility] Number: Effective Repository Date:2018-07-26 05/14/2018 FELIPE L Primary FELIPE L [place] [id number] Insurance:AETNA BOLDMANDOB: [facility] MITALI MARRERO [facility] Number: [id number] Indian Health Care Center [address]Zau: [id number] Repository Date:6648-34-14RY [address] () [id number] [place] [address]RH: 05/14/2018 Secondary NOT GIVENUNK [place] Insurance:SELF PAY [facility] Number: Effective Repository Date:2018-05-10 04/15/2018 FELIPE L Primary FELIPE L [facility] [id number] Insurance:AETNA BOLDMANDOB: [facility] Adry TRAYLORrukhsana Number: [id number] Indian Health Care Center [address]Rui: [id number] Repository Date:6197-24-52DR [address] () [address] [place] [address]TJ: 04/15/2018 Secondary NOT GIVENUNK [place] Insurance:SELF PAY [facility] Number: Effective Repository Date:2018-04-15 04/01/2018 FELIPE L Primary FELIPE L [place] [id number] Insurance:AETNA BOLDMANDOB: Community MITALI DRWOOSTER, MCRPolicy Number: [id number] Indian Health Care Center [address]Pni: [id number] Repository Date:0738-51-66GT [address] () [address] [place] [address]EM: 04/01/2018 Secondary NOT GIVENUNK [facility] Insurance:SELF PAY [facility] Number: Effective Repository Date:2018-04-01 11/27/2017 FELIPE L Primary FELIPE L [facility] [id number] Insurance:AETSABINE MARTÍNEZOB: Kaedn Lujan Number: [id number] Indian Health Care Center [address]Nbw: [id number] Repository [phone] Date:7276-89-90VT [address] () [place] [address]EX: 11/27/2017 Secondary NOT GIVENUNK [place] Insurance:SELF PAY [facility] Number: Effective Repository Date:2017-11-21 11/27/2017 FELIPE L Primary FELIPE L [place] [id number] Insurance:PETERSONTSABINE MARTÍNEZOB: Kaden Lujan Number: [id number] Indian Health Care Center [address]Uuw: [id number] Repository [phone] Date:3634-14-66KU [address] (HP) 136708QTSANT[place] [address]GS: 11/27/2017 Secondary NOT GIVENUNK [facility] Insurance:SELF PAY [facility] Number: Effective Repository Date:2017-11-27 11/21/2017 FELIPE L Primary FELIPE L [place] [id number] Insurance:PETERSONTNA TANYAOB: Kaden Lujan Number: [id number] Indian Health Care Center [address]Ipx: [id number] Repository [phone] Date:9634-05-77DK [address] (HP) 257559BCSONG DUMAS [address]SQ: 11/21/2017 Secondary NOT GIVENUNK [place] Insurance:SELF PAY [facility] Number: Effective Repository Date:2017-11-21 11/12/2017 FELIPE L Primary FELIPE L [facility] [id number] Insurance:AETSABINE MARTÍNEZOB: Community Kaden TRAYLOR Number: [id number] Indian Health Care Center [address]Iek: [id number] Repository [phone] Date:2031-10-52PZ [address] (HP) 161369FG [place] [address]JQ: 11/12/2017 Secondary NOT GIVENUNK [facility] Insurance:SELF PAY [facility] Number: Effective Repository Date:2017-11-08 11/07/2017 FELIPE L Primary FELIPE L [place] [id number] Insurance:AETNA TANYAOB: [facility] MITALI MARRERO Adryicrukhsana Number: [id number] Indian Health Care Center [address]Pbh: [id number] Repository [phone] Date:9051-13-55RH [address] (HP) 309513LV [place] [address]IO: 11/07/2017 Secondary NOT GIVENUNK [place] Insurance:SELF PAY [facility] Number: Effective Repository Date:2017-11-07 11/01/2017 FELIPE L Primary FELIPE L [place] [id number] Insurance:AETNA BOLDMANDOB: [facility] MITALI MARRERO FELICITASPolicy Number: [id number] Indian Health Care Center [address]Nhg: [id number] Repository [phone] Date:5409-86-45UC [address] (HP) 624058OM [place] [address]TI: 11/01/2017 Secondary NOT GIVENUNK [place] Insurance:SELF PAY [facility] Number: Effective Repository Date:2017-11-01 10/11/2017 FELIPE L Primary FELIPE L [place] [id number] Insurance:MARÍA NAVARRO: Kaden Lujan Number: [id number] Indian Health Care Center [address]Ehc: [id number] Repository [phone] Date:2304-97-95AX [address] () 506496[place] [address]EV: 10/11/2017 Secondary NOT GIVENUNK [place] Insurance:SELF PAY [facility] Number: Effective Repository Date:2017-10-11 10/11/2017 FELIPE L Primary FELIPE [facility] [id number] Insurance:MARÍA NAVARRO: [facility] Kaden TRAYLOR Number: [id number] Indian Health Care Center [address]Iqb: [id number] Repository [phone] Date:4890-25-60LM [address] () 184932[place] [address]LW: 10/11/2017 Secondary NOT GIVENUNK [facility] Insurance:SELF PAY [facility] Number: Effective Repository Date:2017-10-11
== END ==
PROVIDERS: Family Provider Family Medicine; PCP Family Medicine; Referring Provider Psychiatry & Neurology Neurology; Visit Provider Psychiatry & Neurology Neurology
DX: R42 Dizziness and giddiness (principal); I65.23 Occlusion and stenosis of bilateral carotid arteries
CPT/HCPCS: 70551; 93880

== ENCOUNTER → 2018-09-05 13:25 | Outpatient (CLI) | payer MEDICARE, SELFPAY ==
--- NOTE | 2018-09-05 13:28 | RAD_ITS ---
STUDY: X-RAY CHEST REASON FOR EXAM: Male, 68 years old. Cough. TECHNIQUE: Frontal and lateral views of the chest. COMPARISON: 02/03/2016. FINDINGS: Moderate lung volumes. Streaky density in both lung bases, consistent with atelectasis. No effusions. No gross infiltrates. Normal size heart. Normal mediastinum and contreras. Normal visualized pulmonary arteries. There is atherosclerotic tortuosity of the aortic arch and descending thoracic aorta. Normal visualized thoracic spine. There is a left shoulder arthroplasty. There is no demonstrated abnormality of the visualized soft tissue structures of the upper abdomen. RAD/Chest PA and Lateral IMPRESSION: Streaky density in both lung bases, consistent with atelectasis. Electronically Signed: Chandu Roth MD at 18:43 EST , Service support ,
== END ==
PROVIDERS: Family Provider Family Medicine; PCP Family Medicine; Referring Provider Family Medicine; Visit Provider Family Medicine
DX: R05 Cough (principal)
CPT/HCPCS: 71046

== ENCOUNTER → 2018-09-17 06:36 | Outpatient (CLI) | payer MEDICARE, SELFPAY ==
[2018-09-10 10:34] VITALS: BMI 31.1
--- NOTE | 2018-09-18 13:19 | PFT ---
INTRODUCTION: The patient is a 68-year-old male that presents for pulmonary function studies secondary to a diagnosis of cough and wheezing. Respiratory therapy reports good patient effort. Bronchodilators were used during testing. INTERPRETATION: Forced expiration spirometry demonstrates no evidence of a large airways obstructive ventilatory defect. There was no significant response to aerosolized bronchodilators. Spirograms are of good quality and do not plateau indicating slow emptying of the lungs. Body plethysmography was performed and reveals a decreased TLC to 5.2 L, 80% of predicted, indicative of a mild restrictive ventilatory impairment. The remainder of the lung volumes are symmetrically reduced. Diffusing capacity by single breath CO is within normal limits at 95% of predicted. IMPRESSION: These pulmonary function studies demonstrate the presence of an isolated mild restrictive ventilatory defect.
== END ==
PROVIDERS: Family Provider Family Medicine; PCP Family Medicine; Referring Provider Internal Medicine Critical Care Medicine; Visit Provider Internal Medicine Critical Care Medicine
DX: R05 Cough (principal); R06.2 Wheezing
CPT/HCPCS: 94060; 94726; 94729

== ENCOUNTER 2018-10-30 11:00 | Outpatient (RCR) | payer MEDICARE, SELFPAY ==
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
--- NOTE | 2018-08-20 11:27 | HP.PTCOM ---
PT Communication Note 08/20/[address] Selvin Webb MD , Thank you fro the [facility]. I have enclosed a copy of the results for your review. In summation, he scored slightly low on excursion on the forward shift on the Limits of Stability Test. He also scored slightly low on the somatosensory portion of the Sensory Organization test. With these results in mind, I plan to see him for two visits to instruct in HEP to help mitigate these factors and progress to I. he will then add them to his workout adn continue I. If there are questions regarding his PT, please feel free to call me. Thank you fo rthis referral. Sincerely, ROGELIO GarciaT, OCS, CSCS Contact Information
--- NOTE | 2018-10-30 11:31 | HP.PTDCSUM ---
HP - PT D/C Summary It has been my pleasure to treat FELIPE EVERETT under orders from Selvin Webb MD, for the diagnosis of Balance issue for a total of 4 visit(s). Discharge Date: 10/30/18 Please see the following information for a summary of their discharge status. - Subjective Subjective: Doing OK getting ex in. Feels like they are helping and getting easier. Life balance slightly better - Overall Improvement % Improvement: 60 - Objective Objective/Function: FGA no change btu better walking with head turns. SOT now normal. LOS: no major changes and still lacks forward excursion. - Goals Goal 1:: Pt score 30/30 on FGA Goal Progress: Not Progressing Goal 2:: Pt be I in approp HEP to minimize balance problems in future with neuropathy Goal Progress: Goal Met Goal 3:: Neurocom balance test adn results Goal Progress: Goal Met - Plan Plan: D/C to HEP - D/C Information Discharge Comments: Pt doing appropriate ex at home adn showing some improvement. Will continue with HEP and contact doctor if problems. If there are questions or concerns regarding this patient's physical therapy, please feel free to call me at [phone]. Thank you for the referral of this patient. Sincerely, Bryon Franco, DPT, OCS, CSCS
== END 2018-10-30 19:00 | disposition home or self-care (01) ==
LOC: PT 11:00
PROVIDERS: Family Provider Family Medicine; PCP Family Medicine; Referring Provider Psychiatry & Neurology Neurology; Visit Provider Psychiatry & Neurology Neurology
DX: R26.81 Unsteadiness on feet (principal)
CPT/HCPCS: 97110; 97162; 97530; 97750

== ENCOUNTER → 2018-11-18 10:33 | Outpatient (CLI) | payer MEDICARE, SELFPAY ==
[2018-10-21 09:09] VITALS: BMI 30.4
[2018-11-18 12:54] LABS: Hemoglobin A1c 5.8 % (4.2-6.3)
[2018-11-18 13:03] LABS: AST(SGOT) 31 U/L (15-37); Alanine Aminotransfer ALT/SGPT 47 U/L (16-61); Albumin, Serum 3.9 g/dL (3.2-5.0); Alkaline Phosphatase 63 U/L (45-117); Anion Gap 7 (5-15); BUN 20 mg/dL (7-18); BUN/Creat Ratio 20.4 RATIO (10-20); Calcium,Total 8.9 mg/dL (8.5-10.1); Chloride 105 mmol/L (98-107); Creatinine, Serum 0.98 mg/dL (0.70-1.30); EST Glomerular Filtration Rate 81 mL/min (>60); Est Glom Filt Rate - Afr Amer 98 mL/min (>60); Glucose 106 mg/dL (74-106); Potassium 4.7 mmol/L (3.5-5.1); Protein, Total 7.9 g/dL (6.4-8.2); Sodium Level 138 mmol/L (136-145)
== END ==
PROVIDERS: PCP Family Medicine; Visit Provider Family Medicine
DX: I10 Essential (primary) hypertension (principal); E11.9 Type 2 diabetes mellitus without complications
CPT/HCPCS: 36415; 80053; 83036

== ENCOUNTER → 2019-08-11 09:57 | Outpatient (CLI) | payer MEDICARE, SELFPAY ==
[2018-10-21 09:09] VITALS: BMI 30.4
[2019-08-11 12:33] LABS: Absolute Lymphocyte Count 1.07 X10^3/uL (0.83-4.51); Absolute Neutrophil Count 4.2 X10^3/uL (2.0-7.7); Basophil# 0.05 X10^3/uL; Basophil% 0.8 % (0-1); Eosinophil# 0.32 X10^3/uL; Eosinophils% 5.1 % (0-5); Hematocrit 42.1 % (40-54); Hemoglobin 13.9 g/dL (13.0-16.5); Lymphocyte # 1.07 X10^3/ul (4.0); Lymphocyte % 17.2 % (19-41); Mean Corpuscular Hgb 29.9 pg (27.0-32.0); Mean Corpuscular Volume 90.5 fL (80-94); Mean Platelet Vol. 9.3 fl (6.2-12.0); Monocyte% 9.6 % (0-10); NRBC Flagged by Analyzer 0 % (0-5); Neutrophil # 4.17 X10^3/uL (2.7-7.7); Platelet Count 211 K/mm3 (150-450); RBC Distribution Width CV 12.7 % (11.6-14.6); RBC Distribution Width SD 41.2 fl (35.1-43.9); Red Blood Count 4.65 M/mm3 (4.6-6.2); White Blood Count 6.2 K/mm3 (4.4-11.0)
[2019-08-11 12:48] LABS: Microalbumin,Random Urine 11.6 mg/L (NO RANGE EST.); Microalbumin:Creatinine Ratio 6.4 mg/g CRE (<30 mg/g CRE)
[2019-08-11 12:59] LABS: Hemoglobin A1c 5.8 % (4.2-6.3)
[2019-08-11 13:13] LABS: AST(SGOT) 20 U/L (15-37); Alanine Aminotransfer ALT/SGPT 33 U/L (16-61); Albumin, Serum 3.8 g/dL (3.2-5.0); Alkaline Phosphatase 64 U/L (45-117); Anion Gap 6 (5-15); BUN 24 mg/dL (7-18); Calcium,Total 9.1 mg/dL (8.5-10.1); Chloride 105 mmol/L (98-107); Cholesterol 154 mg/dL (200); EST Glomerular Filtration Rate 79 mL/min (>60); Est Glom Filt Rate - Afr Amer 96 mL/min (>60); Globulin 3.8 g/dL (2.2-4.2); Glucose 104 mg/dL (74-106); High Density Lipoprotein 39 mg/dL; Potassium 4.4 mmol/L (3.5-5.1); Protein, Total 7.6 g/dL (6.4-8.2); Sodium Level 138 mmol/L (136-145); Thyroid Stim Hormone (TSH) 0.51 uIU/mL (0.358-3.74); Triglycerides 186 mg/dL; Very Low Density Lipoprotein 37 mg/dL (5-40)
== END ==
PROVIDERS: PCP Family Medicine; Referring Provider Family Medicine; Visit Provider Family Medicine
DX: E11.9 Type 2 diabetes mellitus without complications (principal); G47.00 Insomnia, unspecified; M25.552 Pain in left hip
CPT/HCPCS: 36415; 80053; 80061; 82043; 82570; 83036; 84443; 85025

== ENCOUNTER → 2019-09-19 09:53 | Outpatient (CLI) | payer MEDICARE, SELFPAY ==
[2018-10-21 09:09] VITALS: BMI 30.4
[2019-09-19 12:52] LABS: Albumin, Serum 3.9 g/dL (3.2-5.0)
== END ==
PROVIDERS: PCP Family Medicine; Referring Provider Specialist; Visit Provider Specialist
DX: Z01.812 Encounter for preprocedural laboratory examination (principal)
CPT/HCPCS: 36415; 82040

== ENCOUNTER 2020-09-23 15:22 | Outpatient (RCR) | payer MEDICARE, SELFPAY ==
[2018-10-21 09:09] VITALS: BMI 30.4
[2020-09-23] MEDS: COVID-19 VACC, MRNA(PFIZER)/PF 30 MCG/0.3 ML SYRINGE IM (09:50)
[2020-10-14] MEDS: COVID-19 VACC, MRNA(PFIZER)/PF 30 MCG/0.3 ML SYRINGE IM (09:56)
== END 2020-09-23 23:59 ==
LOC: IMMUN 15:22
PROVIDERS: PCP Family Medicine; Visit Provider Family Medicine
DX: Z23 Encounter for immunization (principal)
CPT/HCPCS: 0001A; 0002A

== ENCOUNTER → 2020-09-30 09:05 | Outpatient (CLI) | payer MEDICARE, SELFPAY ==
[2018-10-21 09:09] VITALS: BMI 30.4
[2020-09-30 10:14] LABS: Absolute Lymphocyte Count 0.79 X10^3/uL (0.83-4.51); Absolute Neutrophil Count 2.5 X10^3/uL (2.0-7.7); Basophil# 0.03 X10^3/uL; Basophil% 0.7 % (0-1); Eosinophil# 0.29 X10^3/uL; Eosinophils% 7.2 % (0-5); Hematocrit 42.7 % (40-54); Lymphocyte # 0.79 X10^3/ul (4.0); Lymphocyte % 19.7 % (19-41); Mean Corp Hgb Conc 32.8 g/dL (32-36); Mean Corpuscular Volume 91.4 fL (80-94); Monocyte# 0.38 X10^3/uL; Monocyte% 9.5 % (0-10); NRBC Flagged by Analyzer 0 % (0-5); Neutrophil # 2.52 X10^3/uL (2.7-7.7); Neutrophil % 62.7 % (47-70); Platelet Count 198 K/mm3 (150-450); RBC Distribution Width CV 12.8 % (11.6-14.6); Red Blood Count 4.67 M/mm3 (4.6-6.2)
[2020-09-30 10:38] LABS: Hemoglobin A1c 5.8 % (3.8-5.6)
[2020-09-30 10:42] LABS: ALB/GLOB Ratio 1.3 RATIO (0.9-2.4); AST(SGOT) 49 U/L (15-37); Alanine Aminotransfer ALT/SGPT 64 U/L (16-61); Albumin, Serum 3.9 g/dL (3.2-5.0); Alkaline Phosphatase 68 U/L (45-117); Anion Gap 6 (5-15); BUN 15 mg/dL (7-18); BUN/Creat Ratio 15.6 RATIO (10-20); Calcium,Total 9.1 mg/dL (8.5-10.1); Chloride 105 mmol/L (98-107); Cholesterol 154 mg/dL (200); Creatinine, Serum 0.96 mg/dL (0.70-1.30); EST Glomerular Filtration Rate 82 mL/min (>60); Est Glom Filt Rate - Afr Amer 100 mL/min (>60); Globulin 2.9 g/dL (2.2-4.2); Glucose 108 mg/dL (74-106); High Density Lipoprotein 45 mg/dL; Microalbumin,Random Urine 19.5 mg/L (NO RANGE EST.); Microalbumin:Creatinine Ratio 6.6 mg/g CRE (<30 mg/g CRE); Potassium 4.8 mmol/L (3.5-5.1); Protein, Total 6.8 g/dL (6.4-8.2); Sodium Level 140 mmol/L (136-145); Triglycerides 148 mg/dL; Very Low Density Lipoprotein 30 mg/dL (5-40)
== END ==
PROVIDERS: PCP Family Medicine; Referring Provider Family Medicine; Visit Provider Family Medicine
DX: I65.21 Occlusion and stenosis of right carotid artery (principal); M25.372 Other instability, left ankle; E11.9 Type 2 diabetes mellitus without complications; I10 Essential (primary) hypertension; R89.8 Other abnormal findings in specimens from other organs, systems and tissues
CPT/HCPCS: 36415; 80053; 80061; 82043; 82570; 83036; 85025

== ENCOUNTER → 2020-10-05 10:17 | Outpatient (CLI) | payer MEDICARE, SELFPAY ==
[2018-10-21 09:09] VITALS: BMI 30.4
[2020-10-05 13:29] LABS: PSA,Total- Diagnostic 0.44 ng/mL (0.0-4.0)
== END ==
PROVIDERS: PCP Family Medicine; Referring Provider Family Medicine; Visit Provider Family Medicine
DX: R89.8 Other abnormal findings in specimens from other organs, systems and tissues (principal)
CPT/HCPCS: 36415; 84153

== ENCOUNTER → 2021-04-26 14:45 | Outpatient (CLI) | payer MEDICARE, SELFPAY ==
--- NOTE | 2021-04-26 14:59 | MRI_ITS ---
STUDY: MRI BRAIN WITHOUT CONTRAST REASON FOR EXAM: Male, 70 years old. SENSORINEURAL HEARING LOSS BILATERAL, TINNITUS-- ATTN:IACs TECHNIQUE: Standardized multiplanar fat and water weighted pulse sequences were obtained. COMPARISON: 08/07/2018. FINDINGS: Normal size of the ventricles and extra-axial spaces for the patient''s age. There are a limited number of small white matter hyperintensities, distributed throughout the deep white matter tracts of the cerebral hemispheres, consistent with mild chronic white matter ischemic changes. No significant change from the prior study. There are prominent perivascular spaces (PVS) involving the basal ganglia. Normal thalami. There is no extra-axial fluid accumulation. Normal flow voids within the major intracranial circulation suggesting patency by spin echo criteria. Normal sella turcica, pituitary gland, infundibular stalk, optic chiasm and hypothalamus. There are chronic white matter ischemic changes of the polly, new compared to 2019. The midbrain and medulla are otherwise normal. Normal cerebellum. Normal basal cisterns. Normal bilateral temporal bones. Normal bilateral internal auditory canals. 7th and 8th cranial nerves are unremarkable. No demonstrated mass in the cerebellopontine angles. Normal visualized paranasal sinuses. Normal calvarium and skull base. Normal visualized soft tissue structures. MRI/Brain without Contrast IMPRESSION: 1. Mild microvascular ischemic changes. Otherwise negative study. 2. Unremarkable IACs. Electronically Signed: Cat Cox MD at 17:36 EDT Tel , Service support ,
== END ==
PROVIDERS: PCP Family Medicine; Visit Provider Otolaryngology
DX: H90.3 Sensorineural hearing loss, bilateral (principal)
CPT/HCPCS: 70551

== ENCOUNTER 2021-09-06 08:46 | Outpatient (CLI) | payer MEDICARE, SELFPAY ==
[2021-09-06 10:39] LABS: Absolute Lymphocyte Count 1.02 X10^3/uL (0.83-4.51); Absolute Neutrophil Count 4.5 X10^3/uL (2.0-7.7); Basophil# 0.05 X10^3/uL; Basophil% 0.8 % (0-1); Eosinophil# 0.31 X10^3/uL; Eosinophils% 4.9 % (0-5); Hematocrit 42.3 % (40-54); Hemoglobin 13.9 g/dL (13.0-16.5); Lymphocyte # 1.02 X10^3/ul (0.83-4.51); Lymphocyte % 16.1 % (19-41); Mean Corp Hgb Conc 32.9 g/dL (32-36); Mean Corpuscular Hgb 29.7 pg (27.0-32.0); Mean Corpuscular Volume 90.4 fL (80-94); Mean Platelet Vol. 9.2 fl (6.2-12.0); Monocyte# 0.46 X10^3/uL; Monocyte% 7.3 % (0-10); NRBC Flagged by Analyzer 0 % (0-5); Neutrophil # 4.45 X10^3/uL (2.7-7.7); Neutrophil % 70.4 % (47-70); Platelet Count 230 K/mm3 (150-450); RBC Distribution Width SD 42.5 fl (35.1-43.9); Red Blood Count 4.68 M/mm3 (4.6-6.2); White Blood Count 6.3 K/mm3 (4.4-11.0)
[2021-09-06 10:55] LABS: AST(SGOT) 17 U/L (15-37); Alanine Aminotransfer ALT/SGPT 25 U/L (16-61); Albumin, Serum 3.7 g/dL (3.2-5.0); Alkaline Phosphatase 76 U/L (45-117); Anion Gap 3 (5-15); BUN 16 mg/dL (7-18); BUN/Creat Ratio 15.4 RATIO (10-20); Calcium,Total 9.2 mg/dL (8.5-10.1); Chloride 109 mmol/L (98-107); Cholesterol 169 mg/dL (200); Creatinine, Serum 1.04 mg/dL (0.70-1.30); EST Glomerular Filtration Rate 75 mL/min (>60); Est Glom Filt Rate - Afr Amer 91 mL/min (>60); Globulin 3.7 g/dL (2.2-4.2); Glucose 117 mg/dL (74-106); High Density Lipoprotein 42 mg/dL; Potassium 4.7 mmol/L (3.5-5.1); Protein, Total 7.4 g/dL (6.4-8.2); Sodium Level 141 mmol/L (136-145); Triglycerides 280 mg/dL; Very Low Density Lipoprotein 56 mg/dL (5-40)
[2021-09-06 10:58] LABS: Microalbumin,Random Urine 10.3 mg/L (NO RANGE EST.); Microalbumin:Creatinine Ratio 6.5 mg/g CRE (<30 mg/g CRE)
== END 2021-09-06 23:59 | disposition home or self-care (01) ==
LOC: MFPLAB 08:47
PROVIDERS: PCP Family Medicine; Referring Provider Family Medicine; Visit Provider Family Medicine
DX: E11.9 Type 2 diabetes mellitus without complications (principal); I10 Essential (primary) hypertension; I70.90 Unspecified atherosclerosis
CPT/HCPCS: 36415; 80053; 80061; 82043; 82570; 85025

== ENCOUNTER → 2022-03-07 | Outpatient (CLI) | payer MEDICARE, SELFPAY ==
[2022-03-07 10:55] LABS: Anion Gap 11 (5-15); BUN 21 mg/dL (7-18); BUN/Creat Ratio 19.6 RATIO (10-20); Calcium,Total 9.4 mg/dL (8.5-10.1); Chloride 106 mmol/L (98-107); Creatinine, Serum 1.07 mg/dL (0.70-1.30); EST Glomerular Filtration Rate 72 mL/min (>60); Est Glom Filt Rate - Afr Amer 88 mL/min (>60); Glucose 133 mg/dL (74-106); Potassium 4.4 mmol/L (3.5-5.1); Sodium Level 140 mmol/L (136-145)
== END | disposition home or self-care (01) ==
LOC: MFPLAB 09:06
PROVIDERS: PCP Family Medicine; Referring Provider Family Medicine; Visit Provider Family Medicine
DX: I10 Essential (primary) hypertension (principal)
CPT/HCPCS: 36415; 80048

== ENCOUNTER → 2022-03-30 | Outpatient (CLI) | payer MEDICARE, SELFPAY ==
[2022-03-30 10:03] LABS: Absolute Lymphocyte Count 1.19 X10^3/uL (0.83-4.51); Absolute Neutrophil Count 4.1 X10^3/uL (2.0-7.7); Basophil# 0.07 X10^3/uL; Basophil% 1.1 % (0-1); Eosinophil# 0.36 X10^3/uL; Eosinophils% 5.7 % (0-5); Hematocrit 42.3 % (40-54); Hemoglobin 14.5 g/dL (13.0-16.5); Lymphocyte # 1.19 X10^3/ul (0.83-4.51); Lymphocyte % 18.9 % (19-41); Mean Corp Hgb Conc 34.3 g/dL (32-36); Mean Corpuscular Hgb 30.9 pg (27.0-32.0); Mean Corpuscular Volume 90.2 fL (80-94); Mean Platelet Vol. 9.5 fl (6.2-12.0); Monocyte# 0.52 X10^3/uL; Monocyte% 8.3 % (0-10); NRBC Flagged by Analyzer 0 % (0-5); Neutrophil # 4.11 X10^3/uL (2.7-7.7); Neutrophil % 65.2 % (47-70); Platelet Count 204 K/mm3 (150-450); RBC Distribution Width CV 12.9 % (11.6-14.6); RBC Distribution Width SD 41.8 fl (35.1-43.9); Red Blood Count 4.69 M/mm3 (4.6-6.2); White Blood Count 6.3 K/mm3 (4.4-11.0)
[2022-03-30 10:33] LABS: AST(SGOT) 21 U/L (15-37); Alanine Aminotransfer ALT/SGPT 39 U/L (16-61); Albumin, Serum 3.6 g/dL (3.2-5.0); Alkaline Phosphatase 55 U/L (45-117); Anion Gap 9 (5-15); BUN 29 mg/dL (7-18); BUN/Creat Ratio 28.7 RATIO (10-20); Calcium,Total 9.4 mg/dL (8.5-10.1); Chloride 104 mmol/L (98-107); Creatinine, Serum 1.01 mg/dL (0.70-1.30); EST Glomerular Filtration Rate 77 mL/min (>60); Est Glom Filt Rate - Afr Amer 94 mL/min (>60); Globulin 3.7 g/dL (2.2-4.2); Glucose 154 mg/dL (74-106); Potassium 4.1 mmol/L (3.5-5.1); Protein, Total 7.3 g/dL (6.4-8.2); Sodium Level 138 mmol/L (136-145)
[2022-04-04 15:08] LABS: QNTFERON TB Mitogen Value > 10.00 IU/mL (.); QNTFERON TB Nil Value 0 IU/mL (.); QNTFERON TB1+ Ag Value 0 IU/mL (.); QNTFERON TB2+ Ag Value 0 IU/mL (.)
[2022-04-05 12:24] LABS: Hepatitis B Core Ab Total Negative (Negative); QNTIFERON TB Positive Criteria Negative (Negative)
== END | disposition home or self-care (01) ==
LOC: MTLAB 08:09
PROVIDERS: PCP Family Medicine; Referring Provider Physician Assistant Medical; Visit Provider Physician Assistant Medical
DX: L40.0 Psoriasis vulgaris (principal); Z79.899 Other long term (current) drug therapy; L57.0 Actinic keratosis; L57.8 Other skin changes due to chronic exposure to nonionizing radiation
CPT/HCPCS: 36415; 80053; 85025; 86480; 86704

== ENCOUNTER → 2022-08-31 | Outpatient (CLI) | payer MEDICARE, SELFPAY ==
[2022-08-31 15:17] LABS: Basophil# 0.04 X10^3/uL; Basophil% 0.7 % (0-1); Eosinophil# 0.31 X10^3/uL; Hematocrit 43.2 % (40-54); Hemoglobin 14.4 g/dL (13.0-16.5); Lymphocyte % 21.1 % (19-41); Mean Corp Hgb Conc 33.3 g/dL (32-36); Mean Corpuscular Hgb 29.9 pg (27.0-32.0); Mean Corpuscular Volume 89.8 fL (80-94); Mean Platelet Vol. 9.6 fl (6.2-12.0); Monocyte# 0.49 X10^3/uL; NRBC Flagged by Analyzer 0 % (0-5); Platelet Count 248 K/mm3 (150-450); RBC Distribution Width CV 12.4 % (11.6-14.6); RBC Distribution Width SD 40.8 fl (35.1-43.9); Red Blood Count 4.81 M/mm3 (4.6-6.2); White Blood Count 6.2 K/mm3 (4.4-11.0)
[2022-08-31 15:31] LABS: Hemoglobin A1c 5.9 % (3.8-5.6); Microalbumin,Random Urine 59.1 mg/L (NO RANGE EST.); Microalbumin:Creatinine Ratio 29.6 mg/g CRE (<30 mg/g CRE)
[2022-08-31 15:55] LABS: ALB/GLOB Ratio 1.1 RATIO (0.9-2.4); AST(SGOT) 48 U/L (15-37); Alanine Aminotransfer ALT/SGPT 64 U/L (16-61); Albumin, Serum 3.9 g/dL (3.2-5.0); Alkaline Phosphatase 56 U/L (45-117); Anion Gap 12 (5-15); BUN 19 mg/dL (7-18); BUN/Creat Ratio 19.1 RATIO (10-20); Calcium,Total 9.3 mg/dL (8.5-10.1); Chloride 105 mmol/L (98-107); Cholesterol 152 mg/dL (200); EST Glomerular Filtration Rate 79 mL/min (>60); Est Glom Filt Rate - Afr Amer 95 mL/min (>60); Globulin 3.7 g/dL (2.2-4.2); Glucose 115 mg/dL (74-106); High Density Lipoprotein 42 mg/dL; Protein, Total 7.6 g/dL (6.4-8.2); Sodium Level 140 mmol/L (136-145); Triglycerides 197 mg/dL; Very Low Density Lipoprotein 39 mg/dL (5-40)
== END | disposition home or self-care (01) ==
LOC: MFPLAB 13:33
PROVIDERS: PCP Family Medicine; Referring Provider Family Medicine; Visit Provider Family Medicine
DX: E11.9 Type 2 diabetes mellitus without complications (principal)
CPT/HCPCS: 36415; 80053; 80061; 82043; 82570; 83036; 85025

== ENCOUNTER → 2022-09-12 | Outpatient (CLI) | payer MEDICARE, SELFPAY ==
[2022-09-12 12:44] LABS: AST(SGOT) 41 U/L (15-37); Alanine Aminotransfer ALT/SGPT 59 U/L (16-61); Albumin, Serum 3.9 g/dL (3.2-5.0); Alkaline Phosphatase 60 U/L (45-117); Bilirubin, Direct 0.12 mg/dL (0.00-0.30); GGTP 37 U/L (15-85); Globulin 3.6 g/dL (2.2-4.2); Lipase 87 U/L (73-393); Protein, Total 7.5 g/dL (6.4-8.2)
== END | disposition home or self-care (01) ==
LOC: MFPLAB 10:28
PROVIDERS: PCP Family Medicine; Referring Provider Family Medicine; Visit Provider Family Medicine
DX: R74.8 Abnormal levels of other serum enzymes (principal)
CPT/HCPCS: 36415; 80076; 82977; 83690

== ENCOUNTER → 2022-09-15 | Outpatient (CLI) | payer MEDICARE, SELFPAY ==
[2022-09-15 12:59] LABS: Vitamin B12 418 pg/mL (211-911)
[2022-09-18 13:18] LABS: ANTINUCLEAR ANTIBODIES DIRECT Negative (Negative)
== END | disposition home or self-care (01) ==
LOC: MFPLAB 10:55
PROVIDERS: PCP Family Medicine; Referring Provider Family Medicine; Visit Provider Family Medicine
DX: R53.83 Other fatigue (principal)
CPT/HCPCS: 36415; 82607; 82746; 86038; 86225; 86235

== ENCOUNTER → 2023-04-26 | Outpatient (CLI) | payer MEDICARE, SELFPAY ==
[2023-04-26 15:01] LABS: Hematocrit 44.5 % (40-54); Mean Corp Hgb Conc 33.7 g/dL (32-36); Mean Corpuscular Hgb 30.9 pg (27.0-32.0); Mean Corpuscular Volume 91.6 fL (80-94); Mean Platelet Vol. 9.4 fl (6.2-12.0); Platelet Count 232 K/mm3 (150-450); RBC Distribution Width CV 12.8 % (11.6-14.6); RBC Distribution Width SD 42.7 fl (35.1-43.9); Red Blood Count 4.86 M/mm3 (4.6-6.2); White Blood Count 6.3 K/mm3 (4.4-11.0)
[2023-04-26 15:20] LABS: AST(SGOT) 36 U/L (15-37); Alanine Aminotransfer ALT/SGPT 49 U/L (16-61); Albumin, Serum 3.9 g/dL (3.2-5.0); Alkaline Phosphatase 66 U/L (45-117); Anion Gap 7 (5-15); BUN 20 mg/dL (7-18); BUN/Creat Ratio 18.9 RATIO (10-20); Calcium,Total 9.1 mg/dL (8.5-10.1); Chloride 104 mmol/L (98-107); Creatinine, Serum 1.06 mg/dL (0.70-1.30); EST Glomerular Filtration Rate 73 mL/min (>60); Est Glom Filt Rate - Afr Amer 88 mL/min (>60); Glucose 109 mg/dL (74-106); Potassium 4.1 mmol/L (3.5-5.1); Protein, Total 7.9 g/dL (6.4-8.2); Sodium Level 135 mmol/L (136-145); Thyroid Stim Hormone (TSH) 0.73 uIU/mL (0.358-3.74)
[2023-04-26 15:28] LABS: Microalbumin,Random Urine 19.2 mg/L (NO RANGE EST.); Microalbumin:Creatinine Ratio 8.1 mg/g CRE (<30 mg/g CRE)
== END | disposition home or self-care (01) ==
LOC: MFPLAB 12:01
PROVIDERS: PCP Family Medicine; Visit Provider Family Medicine
DX: L40.9 Psoriasis, unspecified (principal); E11.9 Type 2 diabetes mellitus without complications
CPT/HCPCS: 36415; 80053; 82043; 82570; 84443; 85027

== ENCOUNTER → 2023-05-25 | Outpatient (CLI) | payer MEDICARE, SELFPAY ==
[2023-05-29 09:08] LABS: QNTFERON TB Mitogen Value > 10.00 IU/mL (.); QNTFERON TB Nil Value 0 IU/mL (.); QNTFERON TB1+ Ag Value 0 IU/mL (.); QNTFERON TB2+ Ag Value 0 IU/mL (.); QNTIFERON TB Positive Criteria Negative (Negative)
== END | disposition home or self-care (01) ==
LOC: MTLAB 10:26
PROVIDERS: PCP Family Medicine; Referring Provider Physician Assistant Medical; Visit Provider Physician Assistant Medical
DX: L40.0 Psoriasis vulgaris (principal); Z79.899 Other long term (current) drug therapy; L57.8 Other skin changes due to chronic exposure to nonionizing radiation; L57.0 Actinic keratosis
CPT/HCPCS: 36415; 86480

== ENCOUNTER → 2023-05-30 | Outpatient (CLI) | payer MEDICARE, SELFPAY ==
[2023-06-01 05:07] LABS: Hepatitis B Core Ab Total Negative (Negative)
== END | disposition home or self-care (01) ==
LOC: MTLAB 12:57
PROVIDERS: PCP Family Medicine; Referring Provider Physician Assistant Medical; Visit Provider Physician Assistant Medical
DX: L40.0 Psoriasis vulgaris (principal)
CPT/HCPCS: 36415; 86704

== ENCOUNTER → 2023-09-13 | Outpatient (CLI) | payer MEDICARE, SELFPAY ==
[2023-09-13 17:44] LABS: Absolute Lymphocyte Count 2.01 X10^3/uL (0.83-4.51); Absolute Neutrophil Count 5.9 X10^3/uL (2.0-7.7); Basophil# 0.06 X10^3/uL; Basophil% 0.7 % (0-1); Eosinophils% 3.3 % (0-5); Hematocrit 45.7 % (40-54); Hemoglobin 15.4 g/dL (13.0-16.5); Lymphocyte # 2.01 X10^3/ul (0.83-4.51); Lymphocyte % 22.3 % (19-41); Mean Corp Hgb Conc 33.7 g/dL (32-36); Mean Corpuscular Hgb 30.5 pg (27.0-32.0); Mean Corpuscular Volume 90.5 fL (80-94); Mean Platelet Vol. 9.2 fl (6.2-12.0); Monocyte# 0.68 X10^3/uL; Monocyte% 7.5 % (0-10); NRBC Flagged by Analyzer 0 % (0-5); Neutrophil # 5.94 X10^3/uL (2.7-7.7); Neutrophil % 65.9 % (47-70); Platelet Count 255 K/mm3 (150-450); RBC Distribution Width CV 12.5 % (11.6-14.6); RBC Distribution Width SD 40.8 fl (35.1-43.9); Red Blood Count 5.05 M/mm3 (4.6-6.2)
[2023-09-13 18:04] LABS: Erythrocyte Sedimentation Rate 12 mm/hr (0-20)
[2023-09-13 18:12] LABS: Microalbumin,Random Urine 28.8 mg/L (NO RANGE EST.); Microalbumin:Creatinine Ratio 10.7 mg/g CRE (<30 mg/g CRE)
[2023-09-13 18:14] LABS: Hemoglobin A1c 6.1 % (3.8-5.6)
[2023-09-13 18:46] LABS: AST(SGOT) 37 U/L (15-37); Alanine Aminotransfer ALT/SGPT 54 U/L (16-61); Albumin, Serum 4.3 g/dL (3.2-5.0); Alkaline Phosphatase 72 U/L (45-117); Anion Gap 8 (5-15); BUN 20 mg/dL (7-18); BUN/Creat Ratio 16.3 RATIO (10-20); CRP 5.48 mg/L (0.0-3.0); Calcium,Total 9.3 mg/dL (8.5-10.1); Chloride 106 mmol/L (98-107); Creatinine, Serum 1.23 mg/dL (0.70-1.30); EST Glomerular Filtration Rate 61 mL/min (>60); Est Glom Filt Rate - Afr Amer 74 mL/min (>60); Globulin 4.1 g/dL (2.2-4.2); Glucose 113 mg/dL (74-106); Potassium 3.7 mmol/L (3.5-5.1); Protein, Total 8.4 g/dL (6.4-8.2); Sodium Level 138 mmol/L (136-145); Thyroid Stim Hormone (TSH) 0.48 uIU/mL (0.358-3.74)
--- OUTSIDE RECORDS SUMMARY | 2023-09-13 19:32 | XMS RPT_ITS | CCD ---
Author Name Unknown Address [address] [place] [address] Organization [facility] Results Test Name Value Interpretation Reference Range Facil ity Summary Purpose Family History No Family History Records Found Advance Directives No Advanced Directives Records Found Additional Source Comments (unrecognized sect ion and content) No Status Records Found INFORMATION SOURCE (unrecogn ized section and content) FOR RECORDS PERTAINING TO PATIENTS WHO ARE OR HAVE BEEN ENROLLED IN A CHEMICAL DEPENDENCY/SUBSTANCEABUSE PROGRAM, SOME INFORMATION MAY BE OMITTED. This clinical summary was aggregated from multiple sources. Caution should be exercised in using it in the provision of clinical care. This summary normalizes information from multiple sources, and as a consequence, information in this document may materially change the coding, format and clinical context of patient data. In addition, data may be omitted in some cases. CLINICAL DECISIONS SHOULD BE BASED ON THE PRIMARY CLINICAL RECORDS. [email or web address] provides no warranty or guarantee of the accuracy or completeness of information in this document.
[2023-09-26 14:10] LABS: H. PYLORI STOOL AG Negative (Negative)
== END | disposition home or self-care (01) ==
PROVIDERS: PCP Family Medicine; Referring Provider Family Medicine; Visit Provider Family Medicine
DX: I10 Essential (primary) hypertension (principal); E11.9 Type 2 diabetes mellitus without complications; K13.70 Unspecified lesions of oral mucosa; R10.32 Left lower quadrant pain
CPT/HCPCS: 36415; 80053; 82043; 82570; 83036; 84443; 85025; 85652; 86140; 87338

== ENCOUNTER → 2023-10-19 | Outpatient (CLI) | payer MEDICARE, SELFPAY ==
--- NOTE | 2023-10-19 14:19 | CT_ITS ---
STUDY: CT Abdomen And Pelvis W/ Contrast Injection 10/21/2023 7:16 PM REASON FOR EXAM: Male, 73 years old. pain PERIUMBILICAL PAIN *ORAL IV* Individualized dose optimization techniques were used for this CT. COMPARISON: None. TECHNIQUE: CT Abdomen And Pelvis W/ Contrast Injection Oral and amp; IV Readi-CAT and amp; 100mL Isovue-300 FINDINGS: There are atherosclerotic calcifications of visualized coronary arteries. The visualized portions of the heart are within normal limits. Normal liver. Normal gallbladder and extrahepatic biliary system. Normal spleen. Normal pancreas. Normal bilateral adrenal glands. No acute findings of the right kidney. No acute findings of the left kidney. Normal visualized stomach. Normal small intestine. There are multiple colonic diverticula consistent with diverticulosis. There is non-visualization of the appendix. There are calcifications of the abdominal aorta. This is consistent for atherosclerotic disease. There is NO abdominal aortic aneurysm. Vascular workup can be obtained based on clinical correlation. Normal inferior vena cava. Subcentimeter mesenteric lymph nodes. Normal urinary bladder. There are prostatic calcifications. Total left hip arthroplasty. Normal abdominal wall. There are diffuse degenerative changes of the visualized lumbar spine. There is bilateral neural foraminal stenosis at L4-5 and L5-S1. CT/Abdomen/Pelvis WITH Contrast IMPRESSION: (NOT LISTED IN ORDER OF SIGNIFICANCE) There are multiple colonic diverticula consistent with diverticulosis. Other findings as above. Electronically Signed: Ivan Jones MD at 19:19 EDT ,
[2023-10-19 14:52] LABS: CREATININE FINGERSTICK < 1.0 mg/dL (0.70-1.30); EGFR FINGERSTICK > 60.0000 mL/min (>60)
== END | disposition home or self-care (01) ==
LOC: CT 14:17
PROVIDERS: PCP Family Medicine; Referring Provider Family Medicine; Visit Provider Family Medicine
DX: R10.33 Periumbilical pain (principal)
CPT/HCPCS: 74177; Q9967

== ENCOUNTER → 2024-02-04 | Outpatient (CLI) | payer MEDICARE, SELFPAY ==
[2024-02-04 17:56] LABS: Absolute Lymphocyte Count 1.37 X10^3/uL (0.83-4.51); Absolute Neutrophil Count 5.1 X10^3/uL (2.0-7.7); Basophil# 0.04 X10^3/uL; Basophil% 0.5 % (0-1); Eosinophil# 0.26 X10^3/uL; Eosinophils% 3.5 % (0-5); Hematocrit 42.1 % (40-54); Hemoglobin 13.9 g/dL (13.0-16.5); Lymphocyte # 1.37 X10^3/ul (0.83-4.51); Lymphocyte % 18.2 % (19-41); Mean Corpuscular Hgb 30.6 pg (27.0-32.0); Mean Corpuscular Volume 92.7 fL (80-94); Mean Platelet Vol. 9.6 fl (6.2-12.0); Monocyte# 0.69 X10^3/uL; Monocyte% 9.2 % (0-10); NRBC Flagged by Analyzer 0 % (0-5); Neutrophil # 5.11 X10^3/uL (2.7-7.7); Neutrophil % 67.9 % (47-70); Platelet Count 225 K/mm3 (150-450); RBC Distribution Width CV 12.6 % (11.6-14.6); RBC Distribution Width SD 42.4 fl (35.1-43.9); Red Blood Count 4.54 M/mm3 (4.6-6.2); White Blood Count 7.5 K/mm3 (4.4-11.0)
[2024-02-04 18:15] LABS: ALB/GLOB Ratio 0.9 RATIO (0.9-2.4); AST(SGOT) 11 U/L (15-37); Alanine Aminotransfer ALT/SGPT 22 U/L (16-61); Albumin, Serum 3.7 g/dL (3.2-5.0); Alkaline Phosphatase 63 U/L (45-117); Anion Gap 8 (5-15); BUN 18 mg/dL (7-18); BUN/Creat Ratio 18.3 RATIO (10-20); Calcium,Total 9.4 mg/dL (8.5-10.1); Chloride 105 mmol/L (98-107); Creatinine, Serum 0.98 mg/dL (0.70-1.30); EST Glomerular Filtration Rate 80 mL/min (>60); Est Glom Filt Rate - Afr Amer 96 mL/min (>60); Ferritin 183 ng/mL (26-388); Globulin 4.1 g/dL (2.2-4.2); Glucose 144 mg/dL (74-106); Magnesium 2.2 mg/dL (1.6-2.6); Potassium 3.9 mmol/L (3.5-5.1); Protein, Total 7.8 g/dL (6.4-8.2); Sodium Level 138 mmol/L (136-145); Uric Acid 6.4 mg/dL (3.5-7.2)
[2024-02-05 12:00] LABS: Rheumatoid Factor < 10.0 IU/mL (<15)
== END | disposition home or self-care (01) ==
LOC: MFPLAB 16:24
PROVIDERS: PCP Family Medicine; Visit Provider Family Medicine
DX: M79.675 Pain in left toe(s) (principal); R25.2 Cramp and spasm
CPT/HCPCS: 36415; 80053; 82728; 83735; 84550; 85025; 86140; 86431

== ENCOUNTER → 2024-03-18 | Outpatient (CLI) | payer MEDICARE, SELFPAY ==
--- NOTE | 2024-03-18 12:40 | VDLE_ITS ---
Reason For Study: Bilateral leg pain RIGHT LEFT GSV is normal. GSV is normal. CFV is compressible, spontaneous, phasic, CFV is compressible, spontaneous, phasic, competent and demonstrates normal competent, and demonstrates normal augmentation. augmentation. FV is compressible, spontaneous, phasic, FV is compressible, spontaneous, phasic, competent and demonstrates normal competent and demonstrates normal augmentation. augmentation. POP V is compressible, spontaneous, phasic, POP V is compressible, spontaneous, phasic, competent and demonstrates normal competent and demonstrates normal augmentation. augmentation. T/P Trunk is compressible. T/P Trunk is compressible. PTV is compressible. PTV is compressible. RT PerV is compressible. LT PerV is compressible. Procedure This is a venous duplex using B-mode, color flow and spectral Doppler. Exam performed in department. A preliminary report was called and/or faxed to Dr. Navarro. VL/Venous Duplex US - Frandy Extrem Interpretation Summary Deep veins of the bilateral lower extremities are patent and compressible segme ntally. There is no evidence of bilateral lower extremity deep vein thrombosis. The bilateral great saphenous veins appear patent and compressible segmentally. Ordering Physician: Salomon Navarro Referring Physician: Bryon Garg MD Performed By: Soha Casanova RVT
--- NOTE | 2024-03-18 12:40 | ART_ITS ---
Reason For Study: PVD Procedure A bilateral lower extremity continuous wave Doppler with analog waveform analysis,segmental pressures,and ankle brachial indexes without exercise. Left Segmental Pressures Left brachial= 127mmHg. Left posterior tibial artery = 158mmHg. Left dorsalis pedis artery = 162mmHg. Left digit = 139 mmHg. The left dorsalis pedis waveforms are triphasic. The left posterior tibial artery waveforms are triphasic. Right Segmental Pressures Right brachial= 134mmHg. Right posterior tibial artery = 161mmHg. Right dorsalis pedis artery = 168mmHg. Right digit = 120 mmHg. The right dorsalis pedis waveforms are triphasic. The right posterior tibial artery waveforms are triphasic. Indices The right ankle brachial index by the dorsalis pedis is 1.25. The right ankle brachial index by the posterior tibial artery is 1.20. The right digital-brachial index is 0.90. The left ankle brachial index by the dorsalis pedis is 1.21. The left ankle brachial index by the posterior tibial artery is 1.18. The left digital-brachial index is 1.04. VL/Lower Ext Art Exam w/o Exercis Interpretation Summary Right JOSE 1.25, normal. TBI and Doppler/PVR waveforms of the right leg normal a t rest. Left JOSE 1.21, normal. TBI and Doppler/PVR waveforms of the left leg normal at rest. Ordering Physician: Salomon Navarro Referring Physician: Bryon Garg MD Performed By: Soha Casanova RVT
== END | disposition home or self-care (01) ==
LOC: CVS 12:39
PROVIDERS: PCP Family Medicine; Referring Provider Podiatrist Foot & Ankle Surgery; Visit Provider Podiatrist Foot & Ankle Surgery
DX: I73.89 Other specified peripheral vascular diseases (principal); M79.604 Pain in right leg; M79.605 Pain in left leg
CPT/HCPCS: 93923; 93970

== ENCOUNTER → 2024-06-04 | Outpatient (CLI) | payer MEDICARE, SELFPAY ==
--- NOTE | 2024-06-04 14:03 | NEURO ---
NCS and/or EMG Patient Report Ordering Doctor: Harrison Luo DATE OF SERVICE: 06/04/24 Mathew presents with complaints of numbness and tingling in both hands. Electrodiagnostic findings: Median motor nerve demonstrates normal distal latency and amplitude with reduced conduction velocity bilaterally. Normal left ulnar motor response bilaterally, including conduction across the elbow. Prolonged median sensory latency at the wrist bilaterally. Normal ulnar and radial sensory responses. Normal median and ulnar F-waves. Needle EMG testing was performed in the upper limbs. All muscles tested showed no evidence of denervation with normal motor unit action potentials. Electrodiagnostic impression: This is an abnormal study in the upper limbs 1. Electrodiagnostic findings suggestive of bilateral median mononeuropathy. This is consistent with a mild bilateral carpal tunnel syndrome. Multi Select Codes Neurology Neurology Interp Codes: 17574-77 Musc test done w/n test comp (interp) (2) and 50455-70 Nrv cndj test 11-12 studies (interp)
== END | disposition home or self-care (01) ==
LOC: PSN 12:04
PROVIDERS: PCP Family Medicine; Referring Provider Specialist; Visit Provider Specialist
DX: M72.0 Palmar fascial fibromatosis [Dupuytren] (principal); G56.03 Carpal tunnel syndrome, bilateral upper limbs; G56.23 Lesion of ulnar nerve, bilateral upper limbs
CPT/HCPCS: 95886; 95913

== ENCOUNTER → 2024-06-17 | Outpatient (CLI) | payer MEDICARE, SELFPAY ==
--- NOTE | 2024-06-17 08:06 | EKG12_ITS ---
Test Reason : PRE OP Blood Pressure : */* mmHG Vent. Rate : 66 BPM Atrial Rate : 66 BPM P-R Int : 194 ms QRS Dur : 86 ms QT Int : 402 ms P-R-T Axes : 40 19 -8 degrees QTcB Int : 421 ms Normal sinus rhythm Possible Anterior infarct , age undetermined T wave abnormality, consider inferior ischemia Abnormal ECG Confirmed by Martin Ryder ([id number]), acquisitions editor SANTIAGO CALDWELL ([id number]) on 06/17/2024 1:04:27 PM Referred By: Harrison Luo Confirmed By: Martin Ryder
[2024-06-17 08:32] LABS: Absolute Lymphocyte Count 1.42 X10^3/uL (0.83-4.51); Absolute Neutrophil Count 4.2 X10^3/uL (2.0-7.7); Basophil# 0.03 X10^3/uL; Basophil% 0.5 % (0-1); Eosinophil# 0.31 X10^3/uL; Eosinophils% 4.7 % (0-5); Hematocrit 41.8 % (40-54); Hemoglobin 13.9 g/dL (13.0-16.5); Lymphocyte # 1.42 X10^3/ul (0.83-4.51); Lymphocyte % 21.6 % (19-41); Mean Corp Hgb Conc 33.3 g/dL (32-36); Mean Corpuscular Hgb 30.6 pg (27.0-32.0); Mean Corpuscular Volume 92.1 fL (80-94); Mean Platelet Vol. 9.1 fl (6.2-12.0); Monocyte# 0.58 X10^3/uL; Monocyte% 8.8 % (0-10); NRBC Flagged by Analyzer 0 % (0-5); Neutrophil % 63.8 % (47-70); Platelet Count 181 K/mm3 (150-450); RBC Distribution Width CV 12.4 % (11.6-14.6); RBC Distribution Width SD 41.6 fl (35.1-43.9); Red Blood Count 4.54 M/mm3 (4.6-6.2); White Blood Count 6.6 K/mm3 (4.4-11.0)
[2024-06-17 09:10] LABS: Anion Gap 5 (5-15); BUN 17 mg/dL (7-18); Calcium,Total 9.2 mg/dL (8.5-10.1); Chloride 108 mmol/L (98-107); Creatinine, Serum 1.06 mg/dL (0.70-1.30); EST Glomerular Filtration Rate 73 mL/min (>60); Est Glom Filt Rate - Afr Amer 88 mL/min (>60); Glucose 156 mg/dL (74-106); Potassium 4.3 mmol/L (3.5-5.1); Sodium Level 140 mmol/L (136-145)
== END | disposition home or self-care (01) ==
LOC: PSN 07:50
PROVIDERS: PCP Family Medicine; Referring Provider Specialist; Visit Provider Specialist
DX: Z01.818 Encounter for other preprocedural examination (principal); Z01.810 Encounter for preprocedural cardiovascular examination
CPT/HCPCS: 36415; 80048; 85025; 93005

== ENCOUNTER 2024-06-27 13:47 | Emergency (ER) | payer MEDICARE, SELFPAY ==
[2024-06-27] VITALS (7 sets, daily range): BP systolic 118–157; BP diastolic 76–85; PULSE 60–79; RESP 10–16; TEMP 36.8; O2SAT 97–100; BMI 30.6
--- NOTE | 2024-06-27 13:50 | RAD_ITS ---
STUDY: X-RAY CHEST REASON FOR EXAM: Male, 74 years old. Chest pain TECHNIQUE: Single AP portable view of the chest. COMPARISON: Comparison is made with prior study September 05, 2018. FINDINGS: EKG electrodes are seen. Elevation right hemidiaphragm. Mild increased markings at the right lung base suggestive of right basilar atelectasis. There is no demonstrated pleural abnormality. Normal size heart. Normal mediastinum and contreras. Normal visualized pulmonary arteries. Normal visualized aortic arch and descending thoracic aorta. There are diffuse degenerative changes of the visualized thoracic spine. Left shoulder replacement. There is no demonstrated abnormality of the visualized soft tissue structures of the upper abdomen. RAD/Chest 1 View (Portable) IMPRESSION: Elevation of the right hemidiaphragm with findings suggestive of right basilar linear atelectasis. Electronically Signed: Thompson Chun MD at 14:49 EST ,
--- NOTE | 2024-06-27 13:50 | EKG12_ITS ---
Test Reason : CP Blood Pressure : */* mmHG Vent. Rate : 71 BPM Atrial Rate : 71 BPM P-R Int : 200 ms QRS Dur : 94 ms QT Int : 402 ms P-R-T Axes : 29 -26 40 degrees QTcB Int : 436 ms Normal sinus rhythm Possible Left atrial enlargement Possible Anterior infarct (cited on or before 12-Mar-2017) Abnormal ECG Confirmed by Martin Ryder ([id number]), offline editor DEANNE TRUJILLO ([id number]) on 06/30/2024 6:43:27 AM Referred By: Confirmed By: Martin Ryder
[2024-06-27 14:18] LABS: Absolute Lymphocyte Count 1.47 X10^3/uL (0.83-4.51); Absolute Neutrophil Count 4.2 X10^3/uL (2.0-7.7); Basophil# 0.06 X10^3/uL; Basophil% 0.9 % (0-1); Eosinophils% 4.4 % (0-5); Hematocrit 42.1 % (40-54); Hemoglobin 14.4 g/dL (13.0-16.5); Lymphocyte # 1.47 X10^3/ul (0.83-4.51); Lymphocyte % 21.7 % (19-41); Mean Corp Hgb Conc 34.2 g/dL (32-36); Mean Corpuscular Volume 90.5 fL (80-94); Mean Platelet Vol. 9.3 fl (6.2-12.0); Monocyte# 0.76 X10^3/uL; Monocyte% 11.2 % (0-10); NRBC Flagged by Analyzer 0 % (0-5); Neutrophil # 4.15 X10^3/uL (2.7-7.7); Neutrophil % 61.5 % (47-70); Platelet Count 193 K/mm3 (150-450); RBC Distribution Width CV 12.4 % (11.6-14.6); RBC Distribution Width SD 40.9 fl (35.1-43.9); Red Blood Count 4.65 M/mm3 (4.6-6.2); White Blood Count 6.8 K/mm3 (4.4-11.0)
[2024-06-27 14:36] LABS: Anion Gap 5 (5-15); BUN 17 mg/dL (7-18); BUN/Creat Ratio 17.4 RATIO (10-20); Chloride 109 mmol/L (98-107); Creatinine, Serum 0.98 mg/dL (0.70-1.30); EST Glomerular Filtration Rate 80 mL/min (>60); Est Glom Filt Rate - Afr Amer 97 mL/min (>60); Estimated Creatinine Clearance 78.36 ml/min; Glucose 110 mg/dL (74-106); Sodium Level 139 mmol/L (136-145); Troponin-I HS 5 pg/mL (3.0-78.0); Troponin-I HS (w/2H Reflex) 5 pg/mL (3.0-78.0)
--- NOTE | 2024-06-27 15:50 | CT_ITS ---
STUDY: CT BRAIN WITHOUT CONTRAST REASON FOR EXAM: Male, 74 years old. Headache, lightheadedness RADIATION DOSAGE (If Supplied By Facility): CTDIvol = ( 44.99 ) mGy, DLP = ( 796.11 ) mGycm TECHNIQUE: Transaxial CT imaging of the brain was performed without administration of intravenous contrast material. Individualized dose optimization techniques were used for this CT. COMPARISON: 07/22/14 FINDINGS: Normal soft tissue structures. Normal calvarium. Normal size ventricles and extra-axial spaces for the patient''s age. Normal white matter tracts of the cerebral hemispheres. There are small punctate calcifications of the basal ganglia which are seen in the aging brain as a normal variant. Normal brainstem. Normal cerebellum. There is no intracranial hemorrhage. There are no findings of an acute ischemic infarction. Normal visualized paranasal sinuses. Right mastoiditis. CT/Brain/Head without Contrast IMPRESSION: Normal unenhanced CT scan of the brain. Electronically Signed: Chandu Roth MD at 16:58 EST ,
[2024-06-27 16:11] LABS: Reflex Troponin-HS? (from REC) Y
[2024-06-27] MEDS: Morphine 2 MG/ML Syringe IV (16:11)
[2024-06-27] MEDS: Ondansetron 4 MG/2 ML Vial IV (16:11)
--- NOTE | 2024-06-27 16:15 | ED.VIS.CHEST ---
HPI History of Present Illness Chief Complaint: Chest Pain Narrative Narrative: Chief complaint and HPI: Chest pain and headache. 74-year-old male with history of fibromyalgia, DM, HTN, HLD presents for evaluation of chest pain, headache, resolved lightheadedness. Patient states for the past 3 days he has been having intermittent left-sided chest pain. Describes it as sharp. Not associated with exertion or shortness of breath. Patient states today while sitting down he developed a headache with some lightheadedness and nausea. He states that the lightheadedness has resolved but he still has a headache. Headache was gradual in onset. Patient states that he periodically suffers from headaches but that this one is slightly different because it feels like he was punched in the face. He denies any vision changes, numbness/tingling, weakness, focal deficit, shortness of breath, URI symptoms, abdominal pain, diarrhea, dysuria. Patient states that he had a previous stress test years ago that was unremarkable. He is a non-smoker. He has not taken anything for the pain. Denies any bilateral lower extremity swelling or pain. Denies any recent surgery or travel. Review of systems: See HPI Medications: As listed on the chart Allergies: As listed on the chart PFSH: Per chart Vital signs: As listed on the chart. Reviewed. Physical exam: Gen: A&O x3, NAD Head: Normocephalic, atraumatic Eyes: No sclera icterus, conjunctiva clear, PERRL, EOMI ENT: Moist mucous membranes Neck: Trachea midline, No JVD, full range of motion CV: RRR, no murmurs, no peripheral edema Resp: Lungs CTA BL, no w/r/c GI: Abd soft, non-distended, non-tender, no r/r/g Musc: Full ROM, no deformity, strength +5/5 in all extremities Skin: Warm, dry, intact Neuro: Alert, oriented, grossly intact, sensation intact, no focal deficits Psych: Cooperative, appropriate mood and affect [facility] Medical History (Updated 06/27/24 @ 18:[address] Roly Seth, ) Carotid stenosis, right Acid reflux Gout Arthritis Back problem Diabetes Cough LUQ abdominal pain Fibromyalgia Psoriasis Left sided chest pain left arm tingling BPH (benign prostatic hyperplasia) Dyslipidemia HTN (hypertension) Home Medications ?Medication ?Instructions ?Recorded ?Last Taken ?Type allopurinol 100 mg tablet 100 mg PO DAILY 06/17/13 02/17/17 History coenzyme [id number] 100 mg-20 1 ea PO QHS 06/17/13 02/17/17 History mg capsule omeprazole 40 mg capsule,delayed 40 mg PO QHS 06/17/13 02/17/17 History release Visionex 1 tab PO BID 06/22/15 02/17/17 History potassium citrate 5 mEq (540 mg) 5 meq PO DAILY 06/22/15 02/17/17 History tablet,extended release cholecalciferol (vitamin D3) 25 1,000 unit PO DAILY 09/10/18 Unknown History mcg (1,000 unit) capsule alpha lipoic acid 200 mg capsule 200 mg PO DAILY 10/08/20 Unknown History amitriptyline 10 mg tablet 10 mg PO QHS 10/08/20 Unknown History aspirin 81 mg tablet,delayed 81 mg PO DAILY 10/08/20 Unknown History release (Adult Low Dose Aspirin) duloxetine 60 mg capsule,delayed 60 mg PO DAILY 10/08/20 Unknown History release magnesium oxide 400 mg PO DAILY 10/08/20 Unknown History metformin 500 mg tablet,extended 500 mg PO DAILY 10/08/20 Unknown History release 24 hr pioglitazone 30 mg tablet 30 mg PO DAILY 10/08/20 Unknown History pravastatin 40 mg tablet 40 mg PO QHS 10/08/20 Unknown History propranolol 60 mg capsule,24 60 mg PO DAILY 10/08/20 Unknown History hr,extended release tamsulosin 0.4 mg capsule 0.4 mg PO DAILY 10/08/20 Unknown History levofloxacin 750 mg tablet 750 mg PO DAILY 5 days #5 tabs 06/27/24 Unknown Rx Allergy/AdvReac Type Severity Reaction Status Date / Time dextromethorphan (From Allergy Unknown unknown Verified 06/27/24 13:49 Mucinex Fast-MaxSev Cold-Sinus) phenylephrine (From Mucinex Allergy Unknown unknown Verified 06/27/24 13:49 Fast-MaxSev Cold-Sinus) Iodinated Contrast Media Allergy Hives Verified 06/27/24 13:49 (DYEE) meloxicam (From Mobic) Allergy Abd Verified 06/27/24 13:49 cramps/diarrhea naproxen (From Naprosyn) Allergy Nausea/Vom/ Verified 06/27/24 13:49 Diarrhea pregabalin (From Lyrica) Allergy Other Verified 06/27/24 13:49 Sulfa (Sulfonamide Allergy Rash Verified 06/27/24 13:49 Antibiotics) Family History (Updated 10/08/20 @ 08:30 by Deysi Chapman) Mother Breast cancer Cancer skin Brother Diabetes Hypertension CAD (coronary artery disease) Heart disease Surgical History (Updated 10/08/20 @ 08:30 by Deysi Chapman) Hx of cardiac cath Hx of Achilles tendon repair History of left hip replacement H/O colonoscopy History of left knee replacement History of left shoulder replacement Social History (Updated 10/08/20 @ 08:[address] Vinicio Garcia MD) Smoking Status: Former smoker quit date: 07/23/73 pack-years: 4 Tobacco: How many years used: 4 second hand exposure: No alcohol intake: current alcohol intake frequency: holidays/special occasions only substance use type: does not use caffeine: Yes what type of physical activity do you participate in: walking and aerobics frequency: 3-4 times per week EXAM Physical Exam Const Vital Signs: 06/27/24 13:47 06/27/24 14:29 06/27/24 14:47 Temperature 98.2 F Temperature Source Oral Pulse Rate 72 68 Respiratory Rate 16 10 L Blood Pressure 149/85 H 133/84 H Blood Pressure Mean 106 100 Pulse Ox 100 98 Oxygen Delivery Method Room Air Room Air Room Air 06/27/24 15:00 06/27/24 16:00 06/27/24 17:00 Temperature Temperature Source Pulse Rate 60 62 79 Respiratory Rate 13 16 Blood Pressure 157/80 H 131/80 H Blood Pressure Mean 105 97 Pulse Ox 98 99 97 Oxygen Delivery Method Room Air Room Air Room Air 06/27/24 18:00 06/27/24 18:09 Temperature 98.2 F Temperature Source Pulse Rate 65 65 Respiratory Rate 16 16 Blood Pressure 118/76 118/76 Blood Pressure Mean 90 90 Pulse Ox 97 Oxygen Delivery Method Room Air MDM MDM MDM Narrative Medical decision making narrative: 74-year-old male with history of fibromyalgia, DM, HTN, HLD presents for evaluation of chest pain, headache, resolved lightheadedness. Differential diagnosis includes but is not limited to musculoskeletal strain, symptomatic fibromyalgia, pleurisy, viral illness, pneumonia, ACS, PE, electrolyte abnormality, dehydration, UTI, tension headache, intracranial abnormality. Morphine, Zofran ordered for symptoms. Laboratory workup ordered including CT head. On chart review, patient had unremarkable stress test in 2013. EF was 65%. He states that his stress test was years ago. EKG and chest x-ray reviewed see below. CBC without leukocytosis or anemia. D-dimer unremarkable. BMP unremarkable. Troponin x 2 unremarkable. UA positive for UTI. Urine sent for culture. One-time p.o. antibiotic ordered. CT head without any acute intracranial abnormality. On reevaluation, patient is not having any lightheadedness. His headache is improved as well as his chest pain. No difficulty with ambulation. At this point in time unclear etiology for patient's chest pain however low suspicion for ACS given unremarkable cardiac workup and pain ongoing for several days. Other symptoms may be secondary to UTI but unclear. Patient and are updated of all the results and the plan to discharge home. They confirmed understanding. Return precautions explained. Patient placed on Levaquin course for UTI. Follow-up with PCP. EKG: Interpreted by me/EM physician: EKG shows normal sinus rhythm without ST elevation or depressions. Heart rate 71. Diagnostic: Interpreted by me/EM physician: Chest x-ray without pneumonia, effusion, cardiomegaly, pneumothorax. Patient does have right basilar atelectasis Impression: 1. Chest pain 2. Headache 3. UTI Lab Data Labs: Laboratory Results - last 24 hr 06/27/24 06/27/24 06/27/24 14:05 16:20 17:32 WBC 6.8 RBC 4.65 Hgb 14.4 Hct 42.1 MCV 90.5 MCH 31.0 MCHC 34.2 RDW Std Deviation 40.9 RDW Coeff of Luciano 12.4 Plt Count 193 MPV 9.3 Immature Gran % (Auto) 0.300 Neut % (Auto) 61.5 Lymph % (Auto) 21.7 Sawyer % (Auto) 11.2 H Eos % (Auto) 4.4 Baso % (Auto) 0.9 Absolute Neuts (auto) 4.2 Absolute Lymphs (auto) 1.47 Nucleated RBC % 0 D-Dimer Quant (PE/DVT) 0.34 Sodium 139 Potassium 4.0 Chloride 109 H Carbon Dioxide 25.0 Anion Gap 5 BUN 17 Creatinine 0.98 Estim Creat Clear Calc 78.36 Est GFR (MDRD) Af Amer 97 Est GFR (MDRD) Non-Af 80 BUN/Creatinine Ratio 17.4 Glucose 110 H Calcium 9.0 Troponin I High Sens 5 4 Urine Color Straw Urine Clarity Clear Urine pH 5.0 Ur Specific Bozman 1.025 Urine Protein 15 H Urine Glucose (UA) Normal Urine Ketones Negative Urine Occult Blood Negative Urine Nitrite Negative Urine Bilirubin Negative Urine Urobilinogen Normal Ur Leukocyte Esterase 25 H Urine RBC 0 SEEN Urine WBC 10-25 SEEN Ur Squamous Epith Cells 0-5 SEEN Uric Acid Crystals 1+ Urine Bacteria 1+ Urine Mucus 3+ Radiography Diagnostic Testing: Clinical Impression(s) from Imaging Studies Chest X-Ray 06/27/24 13:50 IMPRESSION: Elevation of the right hemidiaphragm with findings suggestive of right basilar linear atelectasis. Electronically Signed: Thompson Chun MD at 14:49 EST , Brain CT 06/27/24 15:50 IMPRESSION: Normal unenhanced CT scan of the brain. Electronically Signed: Chandu Roth MD at 16:58 EST , Discharge Plan Triage Chief Complaint: Chest Pain ED Provider: Rloy Seth Dx/Rx/DC Orders Clinical Impression: Acute UTI, Chest pain of uncertain etiology Instructions: Urinary Tract Infections in Men, ED Chest Pain, Uncertain Cause Prescriptions: New levofloxacin 750 mg tablet 750 mg PO DAILY 5 Days Qty: 5 0RF No Action cholecalciferol (vitamin D3) 1,000 unit capsule 1,000 unit PO DAILY amitriptyline 10 mg tablet 10 mg PO QHS Patient Comments: TAKE 1 2 TO 2 TABLETS BY MOUTH AT BEDTIME DIRECTED magnesium oxide 400 mg magnesium capsule 400 mg PO DAILY alpha lipoic acid 200 mg capsule 200 mg PO DAILY Patient Comments: TAKE 1 CAPSULE BY MOUTH ONCE DAILY pravastatin 40 mg tablet 40 mg PO QHS Patient Comments: TAKE 1 TABLET BY MOUTH AT BEDTIME tamsulosin 0.4 mg capsule 0.4 mg PO DAILY Patient Comments: TAKE 1 CAPSULE BY MOUTH ONCE DAILY IN THE MORNING propranolol 60 mg capsule,extended release 24 hr 60 mg PO DAILY Patient Comments: TAKE 1 CAPSULE BY MOUTH ONCE DAILY AT SUPPER TIME metformin 500 mg tablet extended release 24 hr 500 mg PO DAILY Patient Comments: TAKE ONE TABLET BY MOUTH AT SUPPER OR EVENING duloxetine 60 mg capsule,delayed release(DR/EC) 60 mg PO DAILY pioglitazone 30 mg tablet 30 mg PO DAILY Patient Comments: TAKE 1 TABLET BY MOUTH ONCE DAILY aspirin [Adult Low Dose Aspirin] 81 mg tablet,delayed release (DR/EC) 81 mg PO DAILY allopurinol 100 MG tablet 100 mg PO DAILY Patient Comments: gout omeprazole 40 MG capsule 40 mg PO QHS Patient Comments: gastric reflux coenzyme [id number] 1 EACH capsule 1 ea PO QHS Patient Comments: supplement potassium citrate 5 MEQ tablet extended release 5 meq PO DAILY Patient Comments: supplement Visionex 1 tab PO BID Patient Comments: congestion Primary Care Provider: Bryon Garg Referrals: Bryon Garg MD [Primary Care Provider] - 3-5 Days Activity Restrictions/Additional Instructions: Follow-up with your primary care physician. Return back to the ED if symptoms change or worsen. Please take all of your antibiotics. Print Language: Tajik Disposition Disposition: Home, Self Care Discharge Date/Time: 06/27/24 18:36
[2024-06-27 16:39] LABS: D-Dimer Quantitative (DVT/PE) 0.34 FEU/ug/m (0.27-0.49)
[2024-06-27 16:45] LABS: Troponin-I HS 4 pg/mL (3.0-78.0)
[2024-06-27 17:38] LABS: Red Blood Cells-Urine 0 SEEN /hpf (0-5)
[2024-06-27 17:44] LABS: Glucose, Dipstick Normal (Normal); Ketone-Dipstick Negative (Negative); Leukocyte Esterase-Dipstick 25 /ul (Negative); Nitrite-Dipstick Negative (Negative); Occult Blood-Urine Negative /ul (Negative); Protein-Dipstick 15 mg/dl (Negative); Specific Gravity, Urine 1.025 (1.002-1.030); Urine Bilirubin Dipstick Negative (Negative); Urine Clarity Clear (Clear); Urine Urobilinogen Normal (Normal)
[2024-06-27 17:50] LABS: Color, Urine Straw (Yellow)
[2024-06-27 17:53] LABS: Bacteria 1+ /hpf (None Seen); Mucous, Urine 3+ /hpf (<or=2+); Squamous Epithelial Cells - UA 0-5 SEEN /hpf (0-5); White Blood Cells 10-25 SEEN /hpf (0-5)
[2024-06-27 17:54] LABS: Uric Acid Crystals Ur 1+ /hpf (<or=1+)
[2024-06-27] MEDS: Cephalexin 250 MG Capsule 500 MG PO (18:07)
== END 2024-06-27 18:36 | disposition home or self-care (01) ==
PROVIDERS: Emergency Provider Surgery; PCP Family Medicine; Visit Provider Surgery
DX: N39.0 Urinary tract infection, site not specified (principal); E11.9 Type 2 diabetes mellitus without complications; E78.5 Hyperlipidemia, unspecified; I10 Essential (primary) hypertension; R07.9 Chest pain, unspecified; Z87.891 Personal history of nicotine dependence; M79.7 Fibromyalgia; R51.9 Headache, unspecified
CPT/HCPCS: 70450; 71045; 80048; 81001; 84484; 85025; 85379; 87086; 87088; 93005; 96374; 96375; 99284; A4216; J2405

== ENCOUNTER → 2024-07-03 | Outpatient (CLI) | payer MEDICARE, SELFPAY ==
[2024-07-07 14:07] LABS: QNTFERON TB Mitogen Value > 10.00 IU/mL (.); QNTFERON TB Nil Value 0 IU/mL (.); QNTFERON TB1+ Ag Value 0 IU/mL (.); QNTFERON TB2+ Ag Value 0 IU/mL (.); QNTIFERON TB Positive Criteria Negative (Negative)
== END | disposition home or self-care (01) ==
PROVIDERS: PCP Family Medicine; Referring Provider Physician Assistant Medical; Visit Provider Physician Assistant Medical
DX: L40.0 Psoriasis vulgaris (principal); Z79.899 Other long term (current) drug therapy; L94.2 Calcinosis cutis; L57.0 Actinic keratosis
CPT/HCPCS: 36415; 86480

== ENCOUNTER → 2024-07-08 | Outpatient (CLI) | payer MEDICARE, SELFPAY ==
--- NOTE | 2024-07-08 17:54 | STRESSREP_ITS ---
Stress Test Report Exercise myocardial perfusion stress test. 74-year-old male with a history of abnormal EKG and dyspnea on exertion Stress protocol: Resting EKG demonstrates normal sinus rhythm with a first-degree AV block and a rate of 60 bpm resting blood pressure is 142/72 mmHg. The patient exercised according to the regular Holden protocol for a total duration of 7 minutes attaining a maximum heart rate of 116 bpm which was 78% of maximum predicted heart rate; the maximum workload was 7 metabolic equivalents. At rest there were no ST or T wave changes noted to suggest ischemia and at peak exercise upsloping ST changes only were noted which did not meet the criteria for ischemia. No clinical angina was noted the test was terminated due to the t arget heart rate being achieved/fatigue. The peak blood pressure was 172/64 mmHg. Rate-pressure product was 19,600. Myocardial perfusion protocol. 11.8 mCi of technetium 99m sestamibi was injected at rest. The patient exercised according to regular Holden protocol for total duration of 7 minutes and at peak exercise 34.9 mCi of technetium 99m sestamibi was injected stress images were obtained stress and rest images were reconstructed in comparing the short axis vertical long and horizontal long axis. Gated images were also obtained. Perfusion SPECT analysis: Review of the stress images demonstrate normal uptake of tracer noted in all areas of the myocardium. The resting images similarly demonstrate normal uptake of tracer noted in all areas of the myocardium. No areas of reversibility are noted to suggest ischemia no previous infarct was noted. Gated SPECT analysis: The gated ejection fraction is 61%. Conclusion: Normal exercise myocardial perfusion stress test at a moderate workload Preserved ejection fraction.
== END | disposition home or self-care (01) ==
LOC: CVS 05:58
PROVIDERS: PCP Family Medicine; Referring Provider Family Medicine; Visit Provider Family Medicine
DX: R07.89 Other chest pain (principal)
CPT/HCPCS: 78452; 93017; A9500; A4216

== ENCOUNTER 2024-07-14 13:34 | Outpatient (RCR) | payer MEDICARE, SELFPAY ==
[2024-07-14 14:12] VITALS: BP 157/86; PULSE 65; RESP 16; TEMP 36.7; BMI 31.0
--- NOTE | 2024-07-14 17:34 | CON.PCM.SX_ITS ---
Assessment & Plan Assessment/Plan (1) Mucous cyst of digit of hand: PLAN: Right long finger mucous cyst is most consistent with the area, but excision and pathology evaluation reasonable. I will discuss with dermatology about referral to make sure I understand complete clinical picture as this area was biopsied. I talked to Mr. Colon about mucous cysts. We talked about osteophytes, joint outpouchings/fluid. We talked about treatments, and went in depth about their benefits, alteratives and risks. He understands possibility of small rotation flap for coverage over joint as needed. Also understands plan to immobilize in extension. He would like it removed and is worried it might start to drain and/or get larger. I will obtain an xray I talked the patient extensively about the risks of surgery, including bleeding, infection, damage to surrounding structures, surgical site dehiscence and wound formation (with open joint), need for wound care, need for repeat operations, return of the cyst, mallet finger or collateral ligament injury, failure to obtain the desired result, DVT/PE, and the risks of anesthesia including (so will plan for [facility] block). The benefits and alternatives of this surgery were also discussed. All of their questions were answered, and they agreed to proceed with surgery. Plan for [place] block and local for excision of right long finger mucous cyst. 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 He reports that the mass over the dorsum of the DIP joint has been there for about 2 months, has never drained. He does not have a history of any kidney failure or any rheumatological diseases. It does not hurt. He does have psoriasis and is treated with 6 times per year injections of Tremfya (immunotherapy, which is recommended to be continued during cyst excision/operations outside of the GI or respiratory tracts). He does not smoke. He is diabetic with a hemoglobin A1c less than 6 (well- controlled). He is retired and right-handed Recently had left CT and cubital tunnel releases with Dr. Luo. [facility] Medical History Carotid stenosis, right Acid reflux Gout Arthritis Back problem Diabetes Cough LUQ abdominal pain Fibromyalgia Psoriasis Left sided chest pain left arm tingling BPH (benign prostatic hyperplasia) Dyslipidemia HTN (hypertension) Home Medications ?Medication ?Instructions ?Recorded ?Last Taken ?Type allopurinol 100 mg tablet 100 mg PO DAILY 06/17/13 02/17/17 History coenzyme [id number] 100 mg-20 1 ea PO QHS 06/17/13 02/17/17 History mg capsule omeprazole 40 mg capsule,delayed 40 mg PO QHS 06/17/13 02/17/17 History release potassium citrate 5 mEq (540 mg) 5 meq PO DAILY 06/22/15 02/17/17 History tablet,extended release cholecalciferol (vitamin D3) 25 1,000 unit PO DAILY 09/10/18 Unknown History mcg (1,000 unit) capsule alpha lipoic acid 200 mg capsule 200 mg PO DAILY 10/08/20 Unknown History amitriptyline 10 mg tablet 10 mg PO QHS 10/08/20 Unknown History aspirin 81 mg tablet,delayed 81 mg PO DAILY 10/08/20 Unknown History release (Adult Low Dose Aspirin) duloxetine 60 mg capsule,delayed 60 mg PO DAILY 10/08/20 Unknown History release magnesium oxide 400 mg PO DAILY 10/08/20 Unknown History metformin 500 mg tablet,extended 500 mg PO DAILY 10/08/20 Unknown History release 24 hr pioglitazone 30 mg tablet 30 mg PO DAILY 10/08/20 Unknown History pravastatin 40 mg tablet 40 mg PO QHS 10/08/20 Unknown History propranolol 60 mg capsule,24 60 mg PO DAILY 10/08/20 Unknown History hr,extended release tamsulosin 0.4 mg capsule 0.4 mg PO DAILY 10/08/20 Unknown History Allergy/AdvReac Type Severity Reaction Status Date / Time dextromethorphan (From Allergy Unknown unknown Verified 07/14/24 14:27 Mucinex Fast-MaxSev Cold-Sinus) phenylephrine (From Mucinex Allergy Unknown unknown Verified 07/14/24 14:27 Fast-MaxSev Cold-Sinus) Iodinated Contrast Media Allergy Hives Verified 07/14/24 14:27 (DYEE) meloxicam (From Mobic) Allergy Abd Verified 07/14/24 14:27 cramps/diarrhea naproxen (From Naprosyn) Allergy Nausea/Vom/ Verified 07/14/24 14:27 Diarrhea pregabalin (From Lyrica) Allergy Other Verified 07/14/24 14:27 Sulfa (Sulfonamide Allergy Rash Verified 07/14/24 14:27 Antibiotics) Family History Mother Breast cancer Cancer skin Brother Diabetes Hypertension CAD (coronary artery disease) Heart disease Surgical History Hx of cardiac cath Hx of Achilles tendon repair History of left hip replacement H/O colonoscopy History of left knee replacement History of left shoulder replacement Social History Smoking Status: Former smoker quit date: 07/23/73 pack-years: 4 Tobacco: How many years used: 4 second hand exposure: No alcohol intake: current alcohol intake frequency: holidays/special occasions only substance use type: does not use caffeine: Yes what type of physical activity do you participate in: walking and aerobics frequency: 3-4 times per week Physical Exam Narrative R Upper Extremity Inspection: Small 0.25 x 0.25 cm cyst on the dorsal radial side of the right long finger DIP joint consistent with a mucous cyst. No mallet finger and no collateral ligament instability Palpation: No tenderness to palpation over the area of concern (cyst). Motor: Able to bend and extend all MP, PIP, and DIP joints. Sensory: Intact to light touch on the radial and ulnar borders. Vascular: Finger tips are warm and well perfused with <2 second capillary refill. Charges/Coding Visit Charges Office Visits / Consults: 27774 OV L3 New 30min
--- NOTE | 2024-07-28 10:06 | WC ---
PHOTO 07/14/24 RIGHT MIDDLE FINGER
== END 2024-07-14 15:19 | disposition home or self-care (01) ==
LOC: WC 13:34
PROVIDERS: PCP Family Medicine; Referring Provider Physician Assistant Medical; Visit Provider Surgery Plastic and Reconstructive Surgery
DX: L94.2 Calcinosis cutis (principal); E11.9 Type 2 diabetes mellitus without complications; E78.5 Hyperlipidemia, unspecified; Z79.1 Long term (current) use of non-steroidal anti-inflammatories (NSAID); Z87.891 Personal history of nicotine dependence; K21.9 Gastro-esophageal reflux disease without esophagitis; N40.0 Benign prostatic hyperplasia without lower urinary tract symptoms; Z79.84 Long term (current) use of oral hypoglycemic drugs; L40.9 Psoriasis, unspecified; M79.7 Fibromyalgia; I10 Essential (primary) hypertension
CPT/HCPCS: 99213; G0463

== ENCOUNTER → 2024-07-17 | Outpatient (CLI) | payer MEDICARE, SELFPAY ==
--- NOTE | 2024-07-17 13:40 | RAD_ITS ---
STUDY: X-RAY - RIGHT HAND, ATTENTION THIRD FINGER REASON FOR EXAM: Male, 74 years old. Cyst TECHNIQUE: 3 view(s) of the finger were obtained. COMPARISON: None. FINDINGS: Normal metacarpal head. Normal metacarpophalangeal joint. Normal proximal phalanx. Normal middle phalanx. Normal distal phalanx. There is moderate degenerative arthrosis of the proximal interphalangeal joint. There is moderate degenerative arthrosis of the distal interphalangeal joint. RAD/Finger(s) Min 2 Views IMPRESSION: Degenerative joint disease, as described above. Electronically Signed: Moshe Glasgow MD at 14:36 EST ,
== END | disposition home or self-care (01) ==
LOC: MTRAD 13:39
PROVIDERS: PCP Family Medicine; Referring Provider Surgery Plastic and Reconstructive Surgery; Visit Provider Surgery Plastic and Reconstructive Surgery
DX: M67.441 Ganglion, right hand (principal)
CPT/HCPCS: 73140

== ENCOUNTER 2024-09-10 08:45 | Day surgery (SDC) | payer MEDICARE, SELFPAY ==
--- NOTE | 2024-09-05 23:53 | PAT.ANE_ITS ---
Pre-Assessment Diagnosis/Proposed Procedure Planned Operative Procedure(s): (R) Excision Mucous Cyst Right Long Finger Possible Soft Tissue Rearrangement Anesthesia History Anesthesia History - vaccine customer representative: Anesthesia History - vaccine customer representative Hx Hospitalization No 09/05/24 15:41 Any Problems With Anesthesia No 09/05/24 15:41 Cholinesterase deficiency No 09/05/24 15:41 You/Your Family Experience No 09/05/24 15:41 fever (hyperthermia) with Relationship Recent Exposure to Contagious No 11/27/17 07:05 Disease Does patient have nerve No 09/05/24 15:41 stimulator Patient instructed to have device shut off --Does patient have Pacemaker or ICD? When Was Last Pacemaker Check QUESTION #4 FULL TEXT: You/Your Family Experience fever (hyperthermia) with Anesthesia Last Oral Intake Last Oral intake: Last Oral Intake NPO since Meds taken in AM with sips of water? Meds patient instructed to take am of surgery PONV PONV - vaccine customer representative: PONV - vaccine customer representative Female No 09/05/24 15:41 HX of Motion Sickness Yes 09/05/24 15:41 HX of N/V After Surgery Yes 09/05/24 15:41 Non-Smoker Yes 09/05/24 15:41 Duration of Surgery greater Yes 09/05/24 15:41 than 60 minutes Number of Risk Factors 4 09/05/24 15:41 PONV Score Severe Risk 09/05/24 15:41 Height & Weight Height & Weight: Anesthesia: Height & Weight Height 5 ft 9 in 07/14/24 14:12 Respiratory Assessment Respiratory Assessment - vaccine customer representative: Respiratory Tract Infection Hx - vaccine customer representative Hx Respiratory Tract Infection No 09/05/24 15:41 STOP Sleep Apnea STOP Sleep Apnea - vaccine customer representative: STOP Sleep Apnea - vaccine customer representative Hx Hypertension Yes: controlled with med 09/05/24 15:41 Hx Sleep Apnea No 09/05/24 15:41 CPAP No 09/05/24 15:41 BIPAP No 09/05/24 15:41 Do you snore loudly (louder No 09/05/24 15:41 than talking or can be heard Do you often feel tired/ No 09/05/24 15:41 fatigued/ sleepy during daytime? Has anyone observed you stop No 09/05/24 15:41 breathing during sleep? STOP Results Negative 09/05/24 15:41 QUESTION #5 FULL TEXT : Do you snore loudly (louder than talking or can be heard through closed doors)? Tobacco Use History Tobacco Use History - vaccine customer representative: Tobacco Use History - vaccine customer representative Tobacco Use Smoking Status Former smoker 09/05/24 15:41 Hx Tobacco Use No 09/05/24 15:41 Years Smoking Packs Smoked per Day Smoking Cessation Date was No - quit smoking greater 09/05/24 15:41 within the last 15 years than 15 years ago Hx Smoking Cessation Date Hx Smoking Cessation Counseling Hematologic Medial History Hematologic Hx - vaccine customer representative: Hematologic Medical Hx - clinical documentation spec Hx of Blood Transfusion No 09/05/24 15:41 Hx of Transfusion in last 3 No 09/05/24 15:41 Months Date of Last Transfusion (if within last 3 months) Ever experience any problems No 09/05/24 15:41 with transfusion(s)? Specify any problems Hx of Preganancy in last 3 N/A 09/05/24 15:41 Months Nurse Filling Out Transfusion [id number] 09/05/24 15:41 & Questions: Date: 09/05/24 09/05/24 15:41 Time: 15:44 09/05/24 15:41 Patient unable to answer at this time (ie. confused, unrespo /Reproduction History /Reproductive History - vaccine customer representative: /Reproductive Hx- vaccine customer representative Hx Now Gestational Age (in weeks): EDC: Hx Hx Para Hx Section [facility] Medical History (Updated 09/05/24 @ 15:51 by Pearl Hinton) Wears hearing aid History of fibromyalgia Alcohol use Prostate disease Injury of back History of benign essential tremor Gastric reflux Former smoker PONV (postoperative nausea and vomiting) History of stress test History of rheumatic fever Carotid stenosis, right Acid reflux Gout Arthritis Back problem Diabetes Cough LUQ abdominal pain Fibromyalgia Psoriasis Left sided chest pain left arm tingling BPH (benign prostatic hyperplasia) Dyslipidemia HTN (hypertension) Home Medications ?Medication ?Instructions ?Recorded ?Last Taken ?Type allopurinol 100 mg tablet 100 mg PO DAILY 06/17/13 History coenzyme [id number] 100 mg-20 1 ea PO QHS 3 02/17/17 History mg capsule omeprazole 40 mg capsule,delayed 40 mg PO QHS 11/26/13 07/29/17 History release potassium citrate 5 mEq (540 mg) 5 meq PO DAILY 02/17/17 History tablet,extended release alpha lipoic acid 200 mg capsule 200 mg PO DAILY 10/08 Unknown History amitriptyline 10 mg tablet 10 mg PO QHS PRN sleep 09/20 04/12 Unknown History aspirin 81 mg tablet,delayed 81 mg PO DAILY 10/08/20 U nknown History release (Adult Low Dose Aspirin) duloxetine 60 mg capsule,delayed 60 mg PO DAILY Unknown History release magnesium oxide 400 mg PO DAILY 10/08/20 Unk nown History metformin 500 mg tablet,extended 500 mg PO DAILY 10/08 Unknown History release 24 hr pioglitazone 30 mg tablet 30 mg PO DAILY 10/08/20 Unkn own History pravastatin 40 mg tablet 40 mg PO QHS 10/08/20 Unknow n History propranolol 60 mg capsule,24 60 mg PO DAILY 10/08/20 U nknown History hr,extended release tamsulosin 0.4 mg capsule 0.4 mg PO DAILY 10/08/20 Unk nown History acetylcysteine 600 mg capsule (NAC) 600 mg PO BID 08/23 11/14 Unknown History guselkumab 100 mg/mL subcutaneous 100 mg subcut .q2mos 09/05/24 Unknown History auto-injector (Tremfya) Allergy/AdvReac Type Severity Reaction Status Date / Time dextromethorphan (From Allergy Unknown unknown Verified 09/05/24 15:33 Mucinex Fast-MaxSev Cold-Sinus) phenylephrine (From Mucinex Allergy Unknown unknown Verified 09/05/24 15:33 Fast-MaxSev Cold-Sinus) Iodinated Contrast Media Allergy Hives Verified 09/05/24 15:33 (DYEE) meloxicam (From Mobic) Allergy Abd Verified 09/05/24 15:33 cramps/diarrhea naproxen (From Naprosyn) Allergy Nausea/Vom/ Verified 09/05/24 15:33 Diarrhea pregabalin (From Lyrica) Allergy Other Verified 09/05/24 15:33 Sulfa (Sulfonamide Allergy Rash Verified 09/05/24 15:33 Antibiotics) Family History Mother Breast cancer Cancer skin Brother Diabetes Hypertension CAD (coronary artery disease) Heart disease Surgical History (Updated 09/05/24 @ 15:40 by Pearl Hinton) History of carpal tunnel surgery of right wrist History of carpal tunnel surgery of left wrist Hx of cardiac cath Hx of Achilles tendon repair History of left hip replacement H/O colonoscopy History of left knee replacement History of left shoulder replacement Social History Smoking Status: Former smoker quit date: 07/23/73 pack-years: 4 Tobacco: How many years used: 4 second hand exposure: No alcohol intake: current alcohol intake frequency: holidays/special occasions only substance use type: does not use caffeine: Yes what type of physical activity do you participate in: walking and aerobics frequency: 3-4 times per week Audit: Pertinent Findings Pertinent Findings EKG Perinent findings: June 27, 2024. Normal sinus rhythm. Possible left atrial enlargement. Possible anterior infarct (cited on or before March 12, 2017) Stress test pertinent findings: July 08, 2024. Ejection fraction 61%. No areas of reversibility are noted to suggest ischemia. No previous infarct was noted. Recommendation Anesthesia Recommendation Anesthesia recommendation: OPTIMIZED for anesthesia
[2024-09-10] VITALS (8 sets, daily range): BP systolic 117–130; BP diastolic 60–87; PULSE 67–78; RESP 16–18; TEMP 36–36.7; O2SAT 92–100; BMI 29.4
--- NOTE | 2024-09-10 09:19 | PCM.PRE.AN2 ---
ASA Classification* ASA Classification ASA Classification: 3 Assessment & Plan Anesthesia* Anesthesia Assessment Anesthesia Assessment: Discussed sedation and/or anesthesia options, risks, benefits, and alternatives with patient/parents/legal guardian/POA. Questions invited. The patient/parents/legal guardian/POA seems to understand and agrees to proceed with anesthesia plan. Reviewed the physical assessment, medical history, allergy history and patient home medications list prior to surgery/procedure/anesthetic and documented any changes. Performed airway and anesthesia risk assessments. Anesthesia Type Anesthesia Type: MAC and Block (Patient is consented for Jonh block.) History Source History Obtained from:: Patient and Chart Anesthesia Focused Assessment* Temperature: 98.1 F Pulse Rate: 67 Blood Pressure: 125/80 Respiratory Rate: 18 Pulse Ox: 99 Oxygen Delivery Method: Room Air Airway Assessment Mouth opens: 2 cm Mallampati Score: IV Teeth Condition: Caps/Crowns (Patient has left upper molar with an implant.) Neck Range of motion (ROM): Full ROM Focused Labs Anesthesia Preop lab: CBC WBC 6.8 K/mm3 (4.4-11.0) 06/27/24 14:05 06/27/24 RBC 4.65 M/mm3 (4.6-6.2) 06/27/24 14:05 06/27/24 Hgb 14.4 g/dL (13.0-16.5) 06/27/24 14:05 06/27/24 Hct 42.1 % (40-54) 06/27/24 14:05 06/27/24 Plt Count 193 K/mm3 (150-450) 06/27/24 14:05 06/27/24 CHEMISTRY Potassium 4.0 mmol/L (3.5-5.1) 06/27/24 14:05 06/27/24 Sodium 139 mmol/L (136-145) 06/27/24 14:05 06/27/24 Magnesium 2.2 mg/dL (1.6-2.6) 02/04/24 16:26 02/04/24 BUN 17 mg/dL (7-18) 06/27/24 14:05 06/27/24 Creatinine 0.98 mg/dL (0.70-1.30) 06/27/24 14:05 06/27/24 Glucose 110 mg/dL (74-106) H 06/27/24 14:05 06/27/24 TSH 0.48 uIU/mL (0.358-3.74) 09/13/23 17:28 09/13/23 COAG Pre-Assessment Diagnosis/Proposed Procedure Planned Operative Procedure(s): (R) Excision Mucous Cyst Right Long Finger Possible Soft Tissue Rearrangement Anesthesia History Anesthesia History - stringing machine tender: Anesthesia History - stringing machine tender Hx Hospitalization No 09/05/24 15:41 Any Problems With Anesthesia No 09/05/24 15:41 Cholinesterase deficiency No 09/05/24 15:41 You/Your Family Experience No 09/05/24 15:41 fever (hyperthermia) with Relationship Recent Exposure to Contagious No 09/10/24 09:16 Disease Does patient have nerve No 09/05/24 15:41 stimulator Patient instructed to have device shut off --Does patient have Pacemaker No 09/10/24 09:16 or ICD? When Was Last Pacemaker Check QUESTION #4 FULL TEXT: You/Your Family Experience fever (hyperthermia) with Anesthesia Last Oral Intake Last Oral intake: Last Oral Intake NPO since 19:00 09/10/24 09:16 Meds taken in AM with sips of No 09/10/24 09:16 water? Meds patient instructed to take am of surgery PONV PONV - stringing machine tender: PONV - stringing machine tender Female No 09/05/24 15:41 HX of Motion Sickness Yes 09/05/24 15:41 HX of N/V After Surgery Yes 09/05/24 15:41 Non-Smoker Yes 09/05/24 15:41 Duration of Surgery greater Yes 09/05/24 15:41 than 60 minutes Number of Risk Factors 4 09/05/24 15:41 PONV Score Severe Risk 09/05/24 15:41 Height & Weight Height & Weight: Anesthesia: Height & Weight Height 5 ft 10 in 09/10/24 09:16 Weight: 93 kg 09/10/24 09:16 Body Mass Index (BMI) 29.4 09/10/24 09:16 Respiratory Assessment Respiratory Assessment - stringing machine tender: Respiratory Tract Infection Hx - stringing machine tender Hx Respiratory Tract Infection No 09/05/24 15:41 STOP Sleep Apnea STOP Sleep Apnea - stringing machine tender: STOP Sleep Apnea - stringing machine tender Hx Hypertension Yes: controlled with med 09/05/24 15:41 Hx Sleep Apnea No 09/05/24 15:41 CPAP No 09/05/24 15:41 BIPAP No 09/05/24 15:41 Do you snore loudly (louder No 09/05/24 15:41 than talking or can be heard Do you often feel tired/ No 09/05/24 15:41 fatigued/ sleepy during daytime? Has anyone observed you stop No 09/05/24 15:41 breathing during sleep? STOP Results Negative 09/05/24 15:41 QUESTION #5 FULL TEXT : Do you snore loudly (louder than talking or can be heard through closed doors)? 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 Specify any problems Hx of Preganancy in last 3 N/A 09/05/24 15:41 Months Nurse Filling Out Transfusion MGRIFFITH 09/05/24 15:41 & Questions: Date: 09/05/24 09/05/24 15:41 Time: 15:44 09/05/24 15:41 Patient unable to answer at this time (ie. confused, unrespo /Reproduction History /Reproductive History - stringing machine tender: /Reproductive Hx- stringing machine tender Hx Now Gestational Age (in weeks): EDC: Hx Hx Para Hx Section SAB Active Medications Active Medications: Current Medications Generic Name Dose Route Start Last Admin Trade Name Freq PRN Reason Stop Dose Admin Cefazolin Sodium 2 gm/ N/A 20 mls @ 400 mls/hr 09/10/24 10:25 IV 09/10/24 10:27 PREOP ONE PFSH Medical History Wears hearing aid History of fibromyalgia Alcohol use Prostate disease Injury of back History of benign essential tremor Gastric reflux Former smoker PONV (postoperative nausea and vomiting) History of stress test History of rheumatic fever Carotid stenosis, right Acid reflux Gout Arthritis Back problem Diabetes Cough LUQ abdominal pain Fibromyalgia Psoriasis Left sided chest pain left arm tingling BPH (benign prostatic hyperplasia) Dyslipidemia HTN (hypertension) Home Medications ?Medication ?Instructions ?Recorded ?Last Taken ?Type allopurinol 100 mg tablet 100 mg PO DAILY 06/17/13 02/17/17 History coenzyme [id number] 100 mg-20 1 ea PO QHS 06/17/13 02/17/17 History mg capsule omeprazole 40 mg capsule,delayed 40 mg PO QHS 06/17/13 02/17/17 History release potassium citrate 5 mEq (540 mg) 5 meq PO DAILY 06/22/15 02/17/17 History tablet,extended release alpha lipoic acid 200 mg capsule 200 mg PO DAILY 10/08/20 Unknown History amitriptyline 10 mg tablet 10 mg PO QHS PRN sleep 10/08/20 Unknown History aspirin 81 mg tablet,delayed 81 mg PO DAILY 10/08/20 Unknown History release (Adult Low Dose Aspirin) duloxetine 60 mg capsule,delayed 60 mg PO DAILY 10/08/20 Unknown History release magnesium oxide 400 mg PO DAILY 10/08/20 Unknown History metformin 500 mg tablet,extended 500 mg PO DAILY 10/08/20 Unknown History release 24 hr pioglitazone 30 mg tablet 30 mg PO DAILY 10/08/20 Unknown History pravastatin 40 mg tablet 40 mg PO QHS 10/08/20 Unknown History propranolol 60 mg capsule,24 60 mg PO DAILY 10/08/20 Unknown History hr,extended release tamsulosin 0.4 mg capsule 0.4 mg PO DAILY 10/08/20 Unknown History acetylcysteine 600 mg capsule (NAC) 600 mg PO BID 09/05/24 Unknown History guselkumab 100 mg/mL subcutaneous 100 mg subcut .q2mos 09/05/24 Unknown History auto-injector (Tremfya) Allergy/AdvReac Type Severity Reaction Status Date / Time dextromethorphan (From Allergy Unknown unknown Verified 09/10/24 09:15 Mucinex Fast-MaxSev Cold-Sinus) phenylephrine (From Mucinex Allergy Unknown unknown Verified 09/10/24 09:15 Fast-MaxSev Cold-Sinus) Iodinated Contrast Media Allergy Hives Verified 09/10/24 09:15 (DYEE) meloxicam (From Mobic) Allergy Abd Verified 09/10/24 09:15 cramps/diarrhea naproxen (From Naprosyn) Allergy Nausea/Vom/ Verified 09/10/24 09:15 Diarrhea pregabalin (From Lyrica) Allergy Other Verified 09/10/24 09:15 Sulfa (Sulfonamide Allergy Rash Verified 09/10/24 09:15 Antibiotics) Family History Mother Breast cancer Cancer skin Brother Diabetes Hypertension CAD (coronary artery disease) Heart disease Surgical History History of carpal tunnel surgery of right wrist History of carpal tunnel surgery of left wrist Hx of cardiac cath Hx of Achilles tendon repair History of left hip replacement H/O colonoscopy History of left knee replacement History of left shoulder replacement Social History Smoking Status: Former smoker quit date: 07/23/73 pack-years: 4 Tobacco: How many years used: 4 second hand exposure: No alcohol intake: current alcohol intake frequency: holidays/special occasions only substance use type: does not use caffeine: Yes what type of physical activity do you participate in: walking and aerobics frequency: 3-4 times per week Review of Systems (Anesthesia) ROS Narrative System reviewed and no additional complaints, except as documented.
--- NOTE | 2024-09-10 09:29 | PCM.HP.STD ---
HPI - General HPI Narrative FELIPE COLON is a 74 M who presents with a right middle finger mass that was biopsied by a local dermatology PA that demonstrated calcinosis cutis. He reports that the mass over the dorsum of the DIP joint has been there for about 2 months, has never drained. He does not have a history of any kidney failure or any rheumatological diseases. It does not hurt. He does have psoriasis and is treated with 6 times per year injections of Tremfya (immunotherapy, which is recommended to be continued during cyst excision/operations outside of the GI or respiratory tracts). He does not smoke. He is diabetic with a hemoglobin A1c less than 6 (well-controlled). He is retired and right-handed Recently had left CT and cubital tunnel releases with Dr. Luo Current Encounter (DATE OF SURGERY H&P UPDATE): I saw and examined the patient this morning in pre-operative holding. We discussed risks and benefits of today's surgery and they would like to proceed. NO CHANGE in health history since last seen and evaluated. Ready to proceed with surgery. [facility] Medical History Wears hearing aid History of fibromyalgia Alcohol use Prostate disease Injury of back History of benign essential tremor Gastric reflux Former smoker PONV (postoperative nausea and vomiting) History of stress test History of rheumatic fever Carotid stenosis, right Acid reflux Gout Arthritis Back problem Diabetes Cough LUQ abdominal pain Fibromyalgia Psoriasis Left sided chest pain left arm tingling BPH (benign prostatic hyperplasia) Dyslipidemia HTN (hypertension) Home Medications ?Medication ?Instructions ?Recorded ?Last Taken ?Type allopurinol 100 mg tablet 100 mg PO DAILY 06/17/13 02/17/17 History coenzyme [id number] 100 mg-20 1 ea PO QHS 06/17/13 02/17/17 History mg capsule omeprazole 40 mg capsule,delayed 40 mg PO QHS 06/17/13 02/17/17 History release potassium citrate 5 mEq (540 mg) 5 meq PO DAILY 06/22/15 02/17/17 History tablet,extended release alpha lipoic acid 200 mg capsule 200 mg PO DAILY 10/08/20 Unknown History amitriptyline 10 mg tablet 10 mg PO QHS PRN sleep 10/08/20 Unknown History aspirin 81 mg tablet,delayed 81 mg PO DAILY 03/19/21 Unknown History release (Adult Low Dose Aspirin) duloxetine 60 mg capsule,delayed 60 mg PO DAILY 10/08/20 Unknown History release magnesium oxide 400 mg PO DAILY 10/08/20 Unknown History metformin 500 mg tablet,extended 500 mg PO DAILY 10/08/20 Unknown History release 24 hr pioglitazone 30 mg tablet 30 mg PO DAILY 10/08/20 Unknown History pravastatin 40 mg tablet 40 mg PO QHS 10/08/20 Unknown History propranolol 60 mg capsule,24 60 mg PO DAILY 10/08/20 Unknown History hr,extended release tamsulosin 0.4 mg capsule 0.4 mg PO DAILY 10/08/20 Unknown History acetylcysteine 600 mg capsule (NAC) 600 mg PO BID 09/05/24 Unknown History guselkumab 100 mg/mL subcutaneous 100 mg subcut .q2mos 09/05/24 Unknown History auto-injector (Tremfya) Allergy/AdvReac Type Severity Reaction Status Date / Time dextromethorphan (From Allergy Unknown unknown Verified 09/10/24 09:15 Mucinex Fast-MaxSev Cold-Sinus) phenylephrine (From Mucinex Allergy Unknown unknown Verified 09/10/24 09:15 Fast-MaxSev Cold-Sinus) Iodinated Contrast Media Allergy Hives Verified 09/10/24 09:15 (DYEE) meloxicam (From Mobic) Allergy Abd Verified 09/10/24 09:15 cramps/diarrhea naproxen (From Naprosyn) Allergy Nausea/Vom/ Verified 09/10/24 09:15 Diarrhea pregabalin (From Lyrica) Allergy Other Verified 09/10/24 09:15 Sulfa (Sulfonamide Allergy Rash Verified 09/10/24 09:15 Antibiotics) Family History Mother Breast cancer Cancer skin Brother Diabetes Hypertension CAD (coronary artery disease) Heart disease Surgical History History of carpal tunnel surgery of right wrist History of carpal tunnel surgery of left wrist Hx of cardiac cath Hx of Achilles tendon repair History of left hip replacement H/O colonoscopy History of left knee replacement History of left shoulder replacement Social History Smoking Status: Former smoker quit date: 07/23/73 pack-years: 4 Tobacco: How many years used: 4 second hand exposure: No alcohol intake: current alcohol intake frequency: holidays/special occasions only substance use type: does not use caffeine: Yes what type of physical activity do you participate in: walking and aerobics frequency: 3-4 times per week Vital Signs Vital Signs Vital Signs: 09/10/24 09:16 09/10/24 09:16 Temperature 98.1 F Temperature Source Temporal Pulse Rate 67 Respiratory Rate 18 Respiratory Pattern Normal Blood Pressure 125/80 H Blood Pressure Mean 95 Blood Pressure Source Monitor Blood Pressure Position Sitting Blood Pressure Location Left Arm Pulse Ox 99 Oxygen Delivery Method Room Air Weight Weight: 205 lb 0.478 oz Body Mass Index (BMI) 29.4 Physical Exam Narrative R Upper Extremity Inspection: Small 0.25 x 0.25 cm cyst on the dorsal radial side of the right long finger DIP joint consistent with a mucous cyst. No mallet finger and no collateral ligament instability Palpation: No tenderness to palpation over the area of concern (cyst). Motor: Able to bend and extend all MP, PIP, and DIP joints. Sensory: Intact to light touch on the radial and ulnar borders. Vascular: Finger tips are warm and well perfused with <2 second capillary refill. Assessment & Plan Assessment/Plan (1) Mucous cyst of digit of hand: PLAN: Plan Right long finger mucous cyst is most consistent with the area, but excision and pathology evaluation reasonable. I talked to Mr. Colon about mucous cysts. We talked about osteophytes, joint outpouchings/fluid. We talked about treatments, and went in depth about their benefits, alteratives and risks. He understands possibility of small rotation flap for coverage over joint as needed. Also understands plan to immobilize in extension. He would like it removed and is worried it might start to drain and/or get larger. I will obtain an xray I talked the patient extensively about the risks of surgery, including bleeding, infection, damage to surrounding structures, surgical site dehiscence and wound formation (with open joint), need for wound care, need for repeat operations, return of the cyst, mallet finger or collateral ligament injury, failure to obtain the desired result, DVT/PE, and the risks of anesthesia including (so will plan for MARISSA block). The benefits and alternatives of this surgery were also discussed. All of their questions were answered, and they agreed to proceed with surgery. INTERVAL H&P PLAN, DATE OF SURGERY: We will proceed with surgery today. Discussed above noted risks/benefits of the procedure, as well as rotation flap for closure and possible failure of the rotation flap and need for wound care or repeat procedures. I also talked to him about making an incision over the joint for debridement and removal of the cyst stock, but leaving the cyst to involute (likely our treatment plan). He understands plan for surgery today and we again discussed the above risks/benefits, and alternatives.
[2024-09-10] MEDS: Cefazolin 2 GM in Syringe IV (10:00)
--- NOTE | 2024-09-10 10:25 | CYST_PTH ---
PATIENT: FELIPE EVERETT [place] [facility] [id number] AGE/SX: 74/M ROOM: RE09/10/[address]: Dr. Vinicio Pack MD : 1950 BED: DIS: 09/10/2024 SPEC #: [id number] RECD: 09/10/24 11:03 STATUS: ANUSHKA DEIRDRE #: [id number] WILLIAMS: 09/10/24 10:[address]: Vinicio Pack DEPT: SURGICAL PATHOLOGY RECD BY: Catherine Chadwick ENTERED: 09/10/24 12:11 SP TYPE: Cyst OTHR DR: Dr. Bryon Garg MD Tissues: CYST Procedures: Surgery Specimen Level III HEADER OPERATION: Excision mucous cyst right long finger and soft tissue PRE-OP DIAGNOSIS: Mucous cyst right long finger TISSUE SUBMITTED: Mucous cyst right long finger MICROSCOPIC DIAGNOSIS Right long finger mucous cyst, excision: A piece of skin with underlying dense fibroconnective tissue with reactive changes. See comment. SJ. 09/11/2024 COMMENT Changes consistent with ganglion cyst/mucous cyst are not identified. MICROSCOPIC DESCRIPTION Slides are reviewed. GROSS DESCRIPTION Received in fixative is one container labeled with the patient's name and designated Mucous cyst right long finger. The specimen consists of a piece of hector-white soft tissue measuring 0.3 x 0.2 x 0.1cm. The entire specimen is submitted in one cassette. 09/10/2024 TC:5 CPT:67465
[2024-09-10] MEDS: Bupivacaine 0.25% 30 ML Vial (10:32)
--- NOTE | 2024-09-10 10:46 | PCM.POST.ANE ---
Anesthesia: Postop Eval I Current Vital Signs Temperature: 96.8 F Pulse Rate: 78 Blood Pressure: 130/60 Respiratory Rate: 18 Pulse Ox: 96 Oxygen Delivery Method: Room Air Assessment Airway patent: Yes Spontaneous unlabored respirations: Yes Mental status: Awake and Calm nausea: No Vomiting: No Anesthesia Complication: No Fluid Hydration Crystalloid volume administer (ml): 10 Total IV fluid infused: 10 Progress Note Anesthesia document: Postop Eval 1 completed: Yes
--- NOTE | 2024-09-10 11:13 | PCM.OPRPT ---
Operative Report (Standard) Operative Information Date of Procedure: 09/10/24 Pre-Operative Diagnosis: Right long finger mucous cyst Post-Operative Diagnosis: Same Surgery/Procedure Performed: 1) Excision of right long finger mucous cyst, CPT 12032 2) Adjacent tissue transfer for closure on dorsal right long finger, 1 x 1.5 cm, CPT 57612 behavioral health assistant: Yes Administrator Social Welfare: Gertrude Ramirez Tasks completed by customer service assistant: Retracting Type of Anesthesia: MAC/Supplemental (8 cc of a 50/50 mixture of 1% lidocaine and 5 cc of 0.25% Marcaine ) RN Documented Start/Stop Times: Operation Date: 09/10/24 10:25 Case Time Into Pre-Op 09/10/24 08:52 Anesthesia Start 09/10/24 09:44 Into Room 09/10/24 09:44 Procedure Start 09/10/24 10:05 Procedure End 09/10/24 10:38 Anesthesia End 09/10/24 10:41 Out of Room 09/10/24 10:41 Into Recovery 09/10/24 10:45 Out of Recovery 09/10/24 11:02 Into Phase II Recovery 09/10/24 11:03 Out of Phase II 09/10/24 11:38 Procedure Start Time: 10:05 Procedure Stop Time: 10:38 Select all DRAINS/GRAFTS/IMPLANTS that apply: None Estimated Blood Loss: Minimal Specimen collected: Yes Description of specimen(s) removed: Right long finger cyst Description of surgery: INDICATIONS: Mathew Colon is a 74 YO male with history of a possible mucous cyst on his right long finger. Presents today for excision of the cyst. I talked the patient extensively about the risks of surgery, including bleeding, infection (especially of the DIP joint), damage to surrounding structures (including mallet deformity), surgical site dehiscence and wound formation, need for wound care, need for repeat operations, failure to obtain the desired result (return of the cyst/pathology), and the risks of anesthesia. All of their questions were answered, and they agreed to proceed with surgery. OPERATIVE DETAILS: Patient was correctly identified in preoperative holding and the correct mucous cyst and digit were marked with the patient in agreement. They were taken back to the operating room where they are administered some sedation and a local block (8 cc of a 50/50 mixture of 1% lidocaine with 0.25% Marcaine) for anesthesia. They were prepped and draped in sterile fashion. All proper timeouts were performed. We began the procedure by placing a tournicot, with care taken to remove at the end of the case. A transverse incision was made just proximal to the cyst over the DIP joint and the terminal slip. The stalk underlying the cyst was fibrotic and was excised completely and sent to pathology. A curette was used to debride the area of osteophytes/spurs, lateral and above and below the terminal slip. The wound was then washed out with copious amounts of normal saline and the specimen sent to pathology. The skin overlying the cyst/the cyst skin was diminutive and appeared to be poorly vascularized. When his finger was bent, there is significant tension in this area and exposure over the joint. We then decided to perform a curvilinear rotation flap to remove the tension and provide good soft tissue coverage. This flap was designed over the dorsum of the middle phalanx. Care was taken to raise the flap using a 15 blade scalpel beneath the subcutaneous plane for full-thickness adipocutanoues advancement flap over the extensor mechanism which was rotated and advanced into position for a total local soft tissue rearrangement of 1 x 1.5 centimeters for closure of the cyst defect. Hemostasis was obtained with bipolar electrocautery. The flap was then sutured into position with 4-0 nylon interrupted sutures. A Xeroform, Kerlix, and AlumaFoam splint with Coban (DIP joint immobilized in extension, PIP joint free) were then placed for dressing. The patient tolerated the procedure well, turnicot was removed at the end of the case. Surgical Findings: Cyst beneath skin. Once removed, there was no healthy soft tissue coverage secondary to previous biopsy and tissue trauma Complications Complications: No
[2024-09-10] MEDS: Acetaminophen 500 MG Tablet 1000 MG PO (11:19)
--- NOTE | 2024-09-10 11:47 | POSTOPAN2_ITS ---
Anesthesia Postop Eval I Sum Postop Eval Completion status Anesthesia document: Postop Eval 1 completed: Yes Anesthesia Postop Eval I Summary Anesthesia Postop Eval I Summary: Anesthesia Postop Eval I: Assessment Summary Airway patent Yes 09/10/24 10:46 [email or web address] [email or web address] Spontaneous unlabored Yes 09/10/24 10:46 TYPECASTING MACHINE [email or web address].[email or web address] respirations Mental status Awake,Calm 09/10/24 10:46 TYPECASTING MACHINE [email or web address].[email or web address] nausea No 09/10/24 10:46 TYPECASTING MACHINE [email or web address].[email or web address] Vomiting No 09/10/24 10:46 TYPECASTING MACHINE [email or web address].[email or web address] Anesthesia Postop Eval I: Fluid Summary Crystalloid volume administer 10 09/10/24 10:46 [email or web address] [email or web address] (ml) Colloids volume administered ( ml) Blood Product volume administered (ml) Total IV fluid infused 10 09/10/24 10:46 TYPECASTING [email or web address] Anesthesia Postop Eval I: Summary Notes Anesthesia Complication No 09/10/24 10:46 [email or web address] [email or web address] Anesthesia Complication Comment: Post-operative progress note Anesthesia: Postop Eval II Evaluation Mental status: Awake and Calm Pain Level: 1 nausea: No Vomiting: No
--- NOTE | 2024-09-10 11:47 | PCM.POSTANE2 ---
Anesthesia Postop Eval I Sum Postop Eval Completion status Anesthesia document: Postop Eval 1 completed: Yes Anesthesia Postop Eval I Summary Anesthesia Postop Eval I Summary: Anesthesia Postop Eval I: Assessment Summary Airway patent Yes 09/10/24 10:46 CORN CUTTER [email or web address] Spontaneous unlabored Yes 09/10/24 10:46 CORN CUTTER [email or web address].[email or web address] respirations Mental status Awake,Calm 09/10/24 10:46 CORN CUTTER [email or web address].[email or web address] nausea No 09/10/24 10:46 CORN CUTTER [email or web address].[email or web address] Vomiting No 09/10/24 10:46 CORN CUTTER [email or web address].[email or web address] Anesthesia Postop Eval I: Fluid Summary Crystalloid volume administer 10 09/10/24 10:46 CORN CUTTER [email or web address].[email or web address] (ml) Colloids volume administered ( ml) Blood Product volume administered (ml) Total IV fluid infused 10 09/10/24 10:46 CORN CUTTER [email or web address].[email or web address] Anesthesia Postop Eval I: Summary Notes Anesthesia Complication No 09/10/24 10:46 CORN CUTTER [email or web address].[email or web address] Anesthesia Complication Comment: Post-operative progress note Anesthesia: Postop Eval II Evaluation Mental status: Awake and Calm Pain Level: 1 nausea: No Vomiting: No
== END 2024-09-10 11:38 | disposition home or self-care (01) ==
LOC: SDC 08:51 → AC 08:52
PROVIDERS: PCP Family Medicine; Referring Provider Surgery Plastic and Reconstructive Surgery; Visit Provider Surgery Plastic and Reconstructive Surgery
PROC: (CPT 26160; principal; 2024-09-10 10:10)
DX: M71.341 Other bursal cyst, right hand (principal); E11.9 Type 2 diabetes mellitus without complications; L94.2 Calcinosis cutis; L40.9 Psoriasis, unspecified; Z87.891 Personal history of nicotine dependence; I10 Essential (primary) hypertension; E78.5 Hyperlipidemia, unspecified; Z79.82 Long term (current) use of aspirin
CPT/HCPCS: 26160; 14040; 01810; 88304; A4216; J2405

== ENCOUNTER 2024-10-31 10:36 | Outpatient (CLI) | payer MEDICARE, SELFPAY ==
[2024-10-31 10:39] LABS: Bacteria 0 SEEN /hpf (None Seen); Mucous, Urine 0 SEEN /hpf (<or=2+)
[2024-10-31 12:44] LABS: Absolute Lymphocyte Count 1.21 X10^3/uL (0.83-4.51); Absolute Neutrophil Count 4.2 X10^3/uL (2.0-7.7); Basophil# 0.05 X10^3/uL; Basophil% 0.8 % (0-1); Eosinophil# 0.42 X10^3/uL; Eosinophils% 6.5 % (0-5); Hematocrit 42.4 % (40-54); Hemoglobin 14.3 g/dL (13.0-16.5); Lymphocyte # 1.21 X10^3/ul (0.83-4.51); Lymphocyte % 18.7 % (19-41); Mean Corp Hgb Conc 33.7 g/dL (32-36); Mean Corpuscular Hgb 30.5 pg (27.0-32.0); Mean Corpuscular Volume 90.4 fL (80-94); Mean Platelet Vol. 9.6 fl (6.2-12.0); Monocyte# 0.53 X10^3/uL; Monocyte% 8.2 % (0-10); NRBC Flagged by Analyzer 0 % (0-5); Neutrophil # 4.24 X10^3/uL (2.7-7.7); Neutrophil % 65.5 % (47-70); Platelet Count 220 K/mm3 (150-450); RBC Distribution Width CV 12.6 % (11.6-14.6); RBC Distribution Width SD 41.2 fl (35.1-43.9); Red Blood Count 4.69 M/mm3 (4.6-6.2); White Blood Count 6.5 K/mm3 (4.4-11.0)
[2024-10-31 12:52] LABS: Color, Urine Yellow (Yellow); Glucose, Dipstick Normal (Normal); Ketone-Dipstick Negative (Negative); Leukocyte Esterase-Dipstick Negative /ul (Negative); Nitrite-Dipstick Negative (Negative); Occult Blood-Urine Negative /ul (Negative); Protein-Dipstick 30 mg/dl (Negative); Specific Gravity, Urine 1.025 (1.002-1.030); Urine Bilirubin Dipstick Negative (Negative); Urine Clarity Clear (Clear); Urine Urobilinogen 1 mg/dl (Normal)
[2024-10-31 13:17] LABS: Red Blood Cells-Urine 0-5 SEEN /hpf (0-5); Squamous Epithelial Cells - UA 0-5 SEEN /hpf (0-5); White Blood Cells 0-5 SEEN /hpf (0-5)
[2024-10-31 13:25] LABS: ALB/GLOB Ratio 1.6 RATIO (0.9-2.4); AST(SGOT) 33 U/L (<=37); Alanine Aminotransfer ALT/SGPT 31 U/L (<=46); Albumin, Serum 4.4 g/dL (3.4-4.8); Alkaline Phosphatase 55 U/L (40-129); Anion Gap 15 (5-15); BUN 20 mg/dL (4-19); BUN/Creat Ratio 19.5 RATIO (10-20); Calcium,Total 9.6 mg/dL (7.6-11.0); Carbon Dioxide 21.2 mmol/L (21.0-32.0); Chloride 103 mmol/L (98-108); Creatinine, Serum 1.02 mg/dL (0.70-1.20); EST Glomerular Filtration Rate 78 (>60); Globulin 2.8 g/dL (2.2-4.2); Glucose 124 mg/dL (70-99); Potassium 4.3 mmol/L (3.3-5.1); Protein, Total 7.2 g/dL (5.9-8.4); Sodium Level 139 mmol/L (133-145); Total Bilirubin 0.51 mg/dL (0.00-1.30)
[2024-10-31 13:26] LABS: Microalbumin,Random Urine 13.9 mg/L (NO RANGE EST.); Microalbumin:Creatinine Ratio 69.5 mg/g CRE
[2024-10-31 13:29] LABS: PSA,Total- Diagnostic 0.54 ng/mL (0.00-4.00); Thyroid Stim Hormone (TSH) 0.618 uIU/mL (0.300-4.200)
== END 2024-10-31 23:59 | disposition home or self-care (01) ==
LOC: MFPLAB 10:37
PROVIDERS: PCP Family Medicine; Referring Provider Family Medicine; Visit Provider Family Medicine
DX: N39.0 Urinary tract infection, site not specified (principal); E11.9 Type 2 diabetes mellitus without complications; R42 Dizziness and giddiness
CPT/HCPCS: 80053; 81001; 82043; 82570; 84153; 84443; 85025; 87086; 87186

== ENCOUNTER → 2025-02-11 | Outpatient (CLI) | payer MEDICARE, SELFPAY ==
[2025-02-13 23:07] LABS: QNTFERON TB Mitogen Value 0.03 IU/mL (.); QNTFERON TB Nil Value 0.02 IU/mL (.); QNTFERON TB1+ Ag Value 0.04 IU/mL (.); QNTFERON TB2+ Ag Value 0.02 IU/mL (.); QNTIFERON TB Positive Criteria Indeterminate (Negative)
== END | disposition home or self-care (01) ==
PROVIDERS: PCP Family Medicine; Referring Provider Physician Assistant Medical; Visit Provider Physician Assistant Medical
DX: L40.0 Psoriasis vulgaris (principal)
CPT/HCPCS: 36415; 86480

== ENCOUNTER → 2025-02-16 | Outpatient (CLI) | payer MEDICARE, SELFPAY ==
[2025-02-18 23:07] LABS: QNTFERON TB Mitogen Value > 10.00 IU/mL (.); QNTFERON TB Nil Value 0.02 IU/mL (.); QNTFERON TB1+ Ag Value 0.02 IU/mL (.); QNTFERON TB2+ Ag Value 0.02 IU/mL (.); QNTIFERON TB Positive Criteria Negative (Negative)
== END | disposition home or self-care (01) ==
LOC: MTLAB 12:58
PROVIDERS: PCP Family Medicine; Referring Provider Family Medicine; Visit Provider Family Medicine
DX: A15.9 Respiratory tuberculosis unspecified (principal)
CPT/HCPCS: 36415; 86480

== ENCOUNTER → 2025-06-11 | Outpatient (CLI) | payer MEDICARE, SELFPAY ==
[2025-06-11 17:41] LABS: Hematocrit 42.8 % (40-54); Hemoglobin 14.9 g/dL (13.0-16.5); Immature Granulocytes Count 0.020 X10^3/uL (0.0-0.0); Mean Corp Hgb Conc 34.8 g/dL (32-36); Mean Corpuscular Volume 87.9 fL (80-94); Mean Platelet Vol. 9.7 fl (6.2-12.0); NRBC Flagged by Analyzer 0 % (0-5); Platelet Count 191 K/mm3 (150-450); RBC Distribution Width CV 12.5 % (11.6-14.6); RBC Distribution Width SD 40.4 fl (35.1-43.9); Red Blood Count 4.87 M/mm3 (4.6-6.2); White Blood Count 7.2 K/mm3 (4.4-11.0)
[2025-06-11 18:03] LABS: Creatinine, Urine (random) 170.00 mg/dL (39.00-259.00); Microalbumin,Random Urine < 12.0 mg/L (<20 mg/L)
[2025-06-11 18:10] LABS: Cholesterol 171 mg/dL (<=200); Low Density Lipoprotein Calc. 86 mg/dL; Triglycerides 291 mg/dL; Very Low Density Lipoprotein 58 mg/dL (5-40); cholesterol:hdl ratio screen 4.68
[2025-06-11 18:14] LABS: AST(SGOT) 57 U/L (<=37); Alanine Aminotransfer ALT/SGPT 55 U/L (<=46); Albumin, Serum 4.5 g/dL (3.4-4.8); Alkaline Phosphatase 52 U/L (40-129); Anion Gap 14 (5-15); BUN 18 mg/dL (4-19); BUN/Creat Ratio 16.9 RATIO (10-20); Calcium,Total 9.8 mg/dL (7.6-11.0); Carbon Dioxide 22.7 mmol/L (21.0-32.0); Chloride 101 mmol/L (98-108); Globulin 3.0 g/dL (2.2-4.2); Glucose 124 mg/dL (70-99); Potassium 4.1 mmol/L (3.3-5.1)
== END | disposition home or self-care (01) ==
LOC: MTLAB 14:31
PROVIDERS: PCP Family Medicine; Referring Provider Family Medicine; Visit Provider Family Medicine
DX: E11.9 Type 2 diabetes mellitus without complications (principal)
CPT/HCPCS: 36415; 80053; 80061; 82043; 82570; 83036; 85025

== ENCOUNTER → 2025-06-30 | Outpatient (CLI) | payer MEDICARE, SELFPAY ==
--- NOTE | 2025-06-30 09:39 | RAD_ITS ---
PROCEDURE: ESOPHAGUS DUAL CONTRAST 06/30/2025 REASON FOR EXAM: LIQUID AND 12MM PILL Dysphagia. TECHNIQUE: ESOPHAGUS DUAL CONTRAST FLUOROSCOPIC TIME: 42 seconds. Radiation dose: 7.2 mGy. FLUOROGRAPHIC IMAGES: 16 COMPARISON: None FINDINGS: The patient ingested barium. Multiple fluoroscopic images were obtained. There is no evidence of obstruction to the flow of contrast. No evidence of gastroesophageal reflux. No mass lesion is seen. The patient ingested a 12 mm tablet the barium. The tablet is temporarily held up at the gastroesophageal junction although it eventually passes into the stomach. RAD/Esophagus Dual Contrast IMPRESSION: Transient holdup of the 12 mm tablet the barium at the gastroesophageal junctio n. Reading Location: [facility]
== END | disposition home or self-care (01) ==
LOC: RAD 09:24
PROVIDERS: PCP Family Medicine; Referring Provider Family Medicine; Visit Provider Family Medicine
DX: R13.14 Dysphagia, pharyngoesophageal phase (principal)
CPT/HCPCS: 74221